=== PATIENT | female | born 1935 | race Caucasian/White ===

== ENCOUNTER 2021-09-25 18:21 | Emergency (ER) | payer OTHER ==
--- NOTE | 2021-09-25 19:19 | RAD REPORT ---
EXAM DESCRIPTION: CT - CTHCSPWOC - 09/25/2021 6:50 pm CLINICAL HISTORY: fall, head injury COMPARISON: No comparisons TECHNIQUE: Axial 5 mm thick images of the head were obtained. Axial 2 mm thick images of the cervic al spine were obtained with sagittal and coronal reconstruction images generated and reviewed. All CT scans are performed using dose optimization technique as appropriate and may include automated exposure control or mA/KV adjustment according to patient size. FINDINGS: No intracranial hemorrhage, mass, edema or acute intracranial finding. No acute cortical b ased infarction. Advanced atrophy and chronic ischemic changes are present with ventricles in proport ion. Arterial tree calcifications are present. No extra-axial fluid collections. Mastoid air cells an d paranasal sinuses are clear. No globe or orbit abnormality seen. Cervical body height and alignment are normal. Disc space narrowing is present C4-C7. Prominent calci fication of the transverse ligament posterior to the dens noted. No fracture or acute bony abnormalit y. No pathologic bone process is present. Calcifications present along the posterior longitudinal ligament at C2-3. Prominent left-sided facet joint degenerative change at this level. Large 10 mm CC x 8 mm AP x 8 mm TR calcification is present posterior aspect of C4-5 disc space. This could be from calcified disc herniation, thickening and calcification of the posterior longitudinal ligament or a combination. This flattens the cord. Central canal is stenotic to 7 mm. Right foraminal stenosis present from facet joint hypertrophy. Right bony foraminal encroachment at C5-6 and mild bilateral foraminal stenosis at C6-7. Central canal detail is inherently limited. No paraspinal mass or hematoma. IMPRESSION: Advanced atrophy and chronic ischemic changes are present with no acute intracranial fin ding. Multilevel cervical spine degenerative change without fracture. Large calcification along the posteri or aspect of the C4-5 disc level causes spinal stenosis down to 7 mm with cord flattening. Negative CT cervical spine examination for acute or significant finding.
--- NOTE | 2021-09-25 19:54 | EDPHYS ---
Physician Documentation [facility] Name: Angela Alston Age: 86 yrs Sex: Female : 1935 Arrival Date: 09/25/2021 Time: 18:23 Bed 2 Private MD: ED Physician Heraclio Brumfield HPI: 09/25 18:25 This 86 yrs old Female presents to ER via Unassigned with complaints of fall, head rn injury. 18:25 The patient or guardian reports injury, pain, swelling. The complaints affect the left rn temporal area and left occipital area. Context of injury: The problem was sustained at a [facility] or assisted living facility, resulted from a fall. Onset: The symptoms/episode began/occurred just prior to arrival. Associated signs and symptoms: Loss of consciousness: This patient did not experience any loss of consciousness. Pertinent positives: headache, Pertinent negatives: the patient has not experienced a loss of conciousness, double vision, incontinence, nausea, seizure, shortness of breath, vomiting. Severity of symptoms: At their worst the symptoms were mild, in the emergency department the symptoms are unchanged. The patient has not experienced similar symptoms in the past. The patient has not recently seen a physician. Historical: - Allergies: 18:30 Macrobid; jl7 18:30 Tetanus Vaccines \T\ Toxoid; jl7 - Home Meds: 18:30 mirabegron 50 mg oral Tb24 1 tab once daily [Active]; losartan 50 mg oral tab 1 tab jl7 once daily [Active]; Namenda 10 mg oral tab 1 tab 2 times per day [Active]; levothyroxine 125 mcg cap 1 cap once daily [Active]; simvastatin 10 mg Oral tab 1 tab once daily [Active]; - PMHx: 18:30 Chronic obstructive lung disease; hyperlipidemia; Dementia; Hypertensive disorder; jl7 Depressive disorder; Hypothyroidism; Transient cerebral ischemia; - Immunization history:: Adult Immunizations unknown. - Social history:: Smoking status: unknown. - Family history:: not pertinent. - Hospitalizations: : No recent hospitalization is reported. ROS: 18:25 Constitutional: Negative for fever, chills, and weight loss, Eyes: Negative for injury, rn pain, redness, and discharge, Neck: Negative for injury, pain, and swelling, Cardiovascular: Negative for chest pain, palpitations, and edema, Respiratory: Negative for shortness of breath, cough, wheezing, and pleuritic chest pain, Abdomen/GI: Negative for abdominal pain, nausea, vomiting, diarrhea, and constipation, Back: Negative for injury and pain, : Negative for injury, bleeding, discharge, and swelling, MS/Extremity: Negative for injury and deformity, Skin: Negative for injury, rash, and discoloration, Neuro: Negative for weakness, numbness, tingling, and seizure. Exam: 18:25 Constitutional: This is a well developed, well nourished patient who is awake, alert, rn and in no acute distress. Head/Face: + small superficial left parietal scalp hematoma, no bleeding or laceration Eyes: Periorbital areas with no swelling, redness, or edema. Neck: No midline cervical tenderness Chest/axilla: Normal chest wall appearance and motion. Nontender with no deformity. No lesions are appreciated. Cardiovascular: Regular rate and rhythm. No pulse deficits. Respiratory: No increased work of breathing, no retractions or nasal flaring. Abdomen/GI: Soft, non-tender Skin: Warm, dry MS/ Extremity: Pulses equal, no cyanosis. Neuro: Awake and alert, GCS 15, oriented to person, place, time, and situation. Moves all 4 extremities without difficulty Vital Signs: 18:26 BP 145 / 64; Pulse 63; Resp 15; Temp 97.8; Pulse Ox 95% ; Pain 0/10; jl7 19:35 BP 155 / 60; Pulse 68; Resp 14; Pulse Ox 93% on R/A; Pain 0/10; tw5 Santhosh Coma Score: 18:25 Eye Response: spontaneous(4). Verbal Response: oriented(5). Motor Response: obeys rn commands(6). Total: 15. 18:25 Eye Response: spontaneous(4). Verbal Response: oriented(5). Motor Response: obeys rn commands(6). Total: 15. MDM: 18:23 Patient medically screened. rn 18:25 Differential diagnosis: Contusion of Hematoma on Intracranial bleed- Concussion rn cerebral contusion. 19:47 Data reviewed: vital signs, nurses notes, EMS record, [facility] records, old medical [facility] records, radiologic studies, CT scan. Data interpreted:. Counseling: I had a detailed discussion with the patient and/or guardian regarding: the historical points, exam findings, and any diagnostic results supporting the discharge/admit diagnosis, the presence of at least one elevated blood pressure reading (>120/80) during this emergency department visit, radiology results, the need for outpatient follow up, to return to the emergency department if symptoms worsen or persist or if there are any questions or concerns that arise at home. Response to treatment: the patient's symptoms have markedly improved after treatment. 09/25 18:30 Order name: CT Head C Spine; Complete Time: 19:36 rn Administered Medications: No medications were administered Disposition Summary: 09/25/21 19:53 Discharge Ordered Location: Home [facility] Problem: new [facility] Symptoms: have improved [facility] Condition: Stable mh Diagnosis - Fall from motorized mobility scooter, sequela 7 - Degenerative Disease Cervical Spine, Chronic [facility] Followup: [facility] - With: Private Physician - When: 1 - 2 days - Reason: Worsening of condition, Recheck today's complaints, Continuance of care, Re-evaluation by your physician Forms: - Medication Reconciliation Form [facility] - Thank You Letter [facility] - Antibiotic Education [facility] - Prescription Opioid Use [facility] Signatures: Dispatcher [employer] EDPk Monique MD MD rn Leal, Jahala, RN RN jl7 Heraclio Brumfield MD MD [facility]
--- NOTE | 2021-09-25 19:54 | ER ---
Nurse's Notes [facility] Name: Angela Alston Age: 86 yrs Sex: Female : 1935 Arrival Date: 09/25/2021 Time: 18:23 Bed 2 Private MD: Diagnosis: Fall from motorized mobility scooter, sequela;Degenerative Disease Cervical Spine, Chronic Presentation: 09/25 18:26 Chief complaint: EMS states: Toned out by [facility] for fall, [facility] faculty jl7 unable to provide information regarding fall, pt reports pain to her head and bilateral shoulders, denies LOC, A\T\Ox2 to self and place, at baseline. Coronavirus screen: At this time, the client does not indicate any symptoms associated with coronavirus-19. Ebola Screen: No symptoms or risks identified at this time. Initial Sepsis Screen: Does the patient meet any 2 criteria? No. Patient's initial sepsis screen is negative. Does the patient have a suspected source of infection? No. Patient's initial sepsis screen is negative. Risk Assessment: Do you want to hurt yourself or someone else? Patient reports no desire to harm self or others. Onset of symptoms was September 25, 2021. Care prior to arrival: None. 18:26 Method Of Arrival: EMS: [facility] 7 18:26 Acuity: KANDACE 4 jl7 Triage Assessment: 18:30 General: Appears in no apparent distress. uncomfortable, Behavior is calm, cooperative, jl7 appropriate for age. Pain: Denies pain. EENT: No deficits noted. Neuro: Level of Consciousness is awake, alert, obeys commands, Oriented to person, place. Cardiovascular: Denies chest pain, Patient's skin is warm and dry. Respiratory: Airway is patent Respiratory effort is even, unlabored, Respiratory pattern is regular, symmetrical, Denies shortness of breath. Derm: Skin is pink, warm \T\ dry. Historical: - Allergies: 18:30 Macrobid; jl7 18:30 Tetanus Vaccines \T\ Toxoid; jl7 - Home Meds: 18:30 mirabegron 50 mg oral Tb24 1 tab once daily [Active]; losartan 50 mg oral tab 1 tab jl7 once daily [Active]; Namenda 10 mg oral tab 1 tab 2 times per day [Active]; levothyroxine 125 mcg cap 1 cap once daily [Active]; simvastatin 10 mg Oral tab 1 tab once daily [Active]; - PMHx: 18:30 Chronic obstructive lung disease; hyperlipidemia; Dementia; Hypertensive disorder; jl7 Depressive disorder; Hypothyroidism; Transient cerebral ischemia; - Immunization history:: Adult Immunizations unknown. - Social history:: Smoking status: unknown. - Family history:: not pertinent. - Hospitalizations: : No recent hospitalization is reported. Screenin:35 Abuse screen: Denies threats or abuse. Denies injuries from another. Nutritional jl7 screening: No deficits noted. Tuberculosis screening: No symptoms or risk factors identified. Fall Risk Fall in past 12 months (25 points). Secondary diagnosis (15 points) dementia, Mental Status- Overestimates/Forgets Limitations (15 pts.). Total Darby Fall Scale indicates High Risk Score (45 or more points). Fall prevention measures have been instituted. Side Rails Up X 2 Placed Close to Nursing Station Frequent Obs/Assessments Occuring As available patient and family educated on Fall Prevention Program and Strategies. Assessment: 18:35 General: see triage. jl7 19:35 Neuro: Level of Consciousness is awake, alert, obeys commands, Oriented to person, tw5 place. Respiratory: Airway is patent Trachea midline Respiratory effort is even, unlabored. 20:15 Reassessment: Spoke with González at [facility] for patient discharge, he will attempt to [facility] find transportation and call back. 20:19 Reassessment: Spoke with Laureen, patient's daughter, at [phone], she will come to [facility] transport patient back to [facility]. 20:21 Reassessment: González at [facility] updated on plan of care, patient's daughter will lp transport patient back to [facility] by personal vehicle. Vital Signs: 18:26 BP 145 / 64; Pulse 63; Resp 15; Temp 97.8; Pulse Ox 95% ; Pain 0/10; jl7 19:35 BP 155 / 60; Pulse 68; Resp 14; Pulse Ox 93% on R/A; Pain 0/10; tw5 Santhosh Coma Score: 18:25 Eye Response: spontaneous(4). Verbal Response: oriented(5). Motor Response: obeys rn commands(6). Total: 15. 18:25 Eye Response: spontaneous(4). Verbal Response: oriented(5). Motor Response: obeys rn commands(6). Total: 15. ED Course: 18:23 Patient arrived in ED. ss 18:23 Pk Ferreira MD is Attending Physician. rn 18:26 Jonnathan Martinez, KYE is Primary Nurse. jl7 18:30 Triage completed. jl7 18:30 Arm band placed on right wrist. jl7 18:35 Patient has correct armband on for positive identification. Bed in low position. Call jl7 light in reach. Side rails up X2. Pulse ox on. NIBP on. Warm blanket given. 18:50 CT Head C Spine In Process Unspecified. EDMS 19:02 Attending Physician role handed off by Pk Ferreira MD [facility] 19:02 Heraclio Brumfield MD is Attending Physician. [facility] 19:45 Primary Nurse role handed off by Jonnathan Martinez RN cs9 20:30 Sirisha Downey is Primary Nurse. tw5 20:31 No provider procedures requiring assistance completed. Patient did not have IV access tw5 during this emergency room visit. Administered Medications: No medications were administered Outcome: 19:53 Discharge ordered by . 7 20:31 Discharged to home via wheelchair. tw5 20:31 Condition: good 20:31 Discharge instructions given to patient, family, Instructed on discharge instructions, follow up and referral plans. Demonstrated understanding of instructions. 20:31 Patient left the ED. tw5 Signatures: Dispatcher [employer] EDUT Pk Ferreira MD MD rn Smirch, Shelby, RN RN Katie Ugalde, RN RN lp1 Jonnathan Martinez, KYE FISHMAN jl7 Heraclio Brumfield MD MD Sirisha Quigley tw5 Nataly Sesay cs9
[2021-09-25 20:41] VITALS: TEMP 97.8
[2021-09-25 20:43] VITALS: BP 155/60; O2SAT 93
== END 2021-09-25 20:31 | disposition home or self-care (01) ==
LOC: ER 18:21
DX: S00.03XA Contusion of scalp, initial encounter (principal); M50.30 Other cervical disc degeneration, unspecified cervical region; W05.2XXA Fall from non-moving motorized mobility scooter, initial encounter; Y92.129 Unspecified place in nursing home as the place of occurrence of the external cause; I10 Essential (primary) hypertension; F03.90 Unspecified dementia, unspecified severity, without behavioral disturbance, psychotic disturbance, mood disturbance, and anxiety; E03.9 Hypothyroidism, unspecified; Z86.73 Personal history of transient ischemic attack (TIA), and cerebral infarction without residual deficits; Z88.1 Allergy status to other antibiotic agents; Z88.7 Allergy status to serum and vaccine
CPT/HCPCS: 70450; 72125; 99283

== ENCOUNTER 2021-10-29 16:28 | Inpatient (IN) | payer OTHER ==
--- OUTSIDE RECORDS SUMMARY | 2021-10-29 16:30 | XMS REPORT | Continuity of Care Document ---
:1935 Author Organization [facility] t Address [address] [place] [address] Care Team Providers Name Role Phone SABRINA MARQUEZ Primary Care Physician Unavailable DELMA BOOKER Attending Clinician Unavailable Jacek Attending Clinician Unavailable Charly PRATT Attending Clinician Unavailable IDA Attending Clinician Unavailable Jacek Admitting Clinician Unavailable IDA Admitting Clinician Unavailable Payers Payer Name Policy Type Policy Number Effective Date Expiration Date S ource MEDICARE PART A \T\ [id number] 1999 B 00:00:00 [facility] [id number] 2013 GENERAL 00:00:00 MEDICARE B-[place]: [id number] 1999 [employer] 00:00:00 [facility] [id number] 2001 [facility] 00:00:00 (INDEMNITY) Problems This patient has no known problems. Allergies, Adverse Reactions, Alerts Allergy Allergy Status Severity Reaction(s) Onset Inactive Treating Comm ents Source Name Type Date Date Clinician TETANUS DRUG Active Hives 2018- [facility] TOXOID 6-12 ity of 00:00: [address] [place] nitrofur DA [facility] antoin 4-22 Clear 00:00: [address] tetanus DA [place] [facility] toxoid, 4-22 Clear adsorbed 00:00: [address] Medications This patient has no known medications. Procedures This patient has no known procedures. Encounters Start End Encounter Admission Attending Care Care Encounter Source Date/Time Date/Time Type Type Clinicians Facility Department ID 2021-08-[address] [facility] [id number] [facility] 10:03:22 [facility] 2021-08-[address] [facility] [id number] [facility] 19:50:02 [facility] 2021-04-26 2021-04-26 Outpatient [facility] [id number] [facility] 09:30:00 09:30:00 [id number] [facility] 2021-04-06 2021-04-06 Outpatient R [facility] [id number] [facility] 10:00:00 10:00:00 [id number] [facility] 2021-04-06 2021-04-06 Outpatient [facility] [id number] [facility] 10:00:00 10:00:00 [facility] 2021-03-04 2021-03-04 Outpatient GC_[facility]AWPR[facility] PRIV PRIV [id number] [facility] 12:43:00 12:43:00 _Miller-M [id number] [facility] 2021-01-06 2021-01-06 [address] [facility] [id number] [facility] 13:00:00 13:00:00 MALACHI [id number] [facility] 2021-01-06 2021-01-06 [facility] [id number] [facility] 13:00:00 13:00:00 MALACHI [facility] 2020-12-16 2020-12-[address] [facility] [id number] Univers 15:20:00 15:20:00 [id number] [facility] 2020-12-16 2020-12-16 [facility] [id number] [facility] 15:20:00 15:20:00 MALACHI [facility] 2020-10-26 2020-10-26 Outpatient A[facility] [id number] [facility] 09:30:00 09:30:00 [id number] [facility] 2020-10-06 2020-10-06 Outpatient R [facility] [id number] [facility] 10:00:00 10:00:00 [id number] [facility] 2020-10-06 2020-10-06 Outpatient R [facility] [id number] [facility] 10:00:00 10:00:00 [facility] 2020-04-19 2020-04-19 Outpatient R [facility] [id number] [facility] 10:00:00 10:00:00 [facility] 2020-04-11 2020-04-12 Outpatient X IDA [facility] [id number] [facility] 18:25:17 17:04:00 CAPRI [facility] Results This patient has no known results.
[2021-10-29 17:27] LABS: Absolute Lymphocytes (CBC) 1.6 K/uL (0.7-4.9); Hematocrit 36.8 % (36.0-45.0); Lymphocytes % 12.4 % (15.3-44.8); MPV 7.8 fL (7.6-11.3)
[2021-10-29 17:39] LABS: Protime INR 1.4
[2021-10-29 17:45] LABS: Urine Blood 2+ (Negative); Urine Glucose Negative (Negative); Urine Protein 2+ (Negative); Urine Specific Gravity 1.025 (1.005-1.030); Urine pH 5.5 (5.0-7.0)
[2021-10-29 17:47] LABS: Albumin 2.3 g/dL (3.4-5.0); Bilirubin Direct 0.2 mg/dL (0-0.2); Bilirubin Total 0.4 mg/dL (0.2-1.0); CKMB Creatine Kinase MB 2.4 ng/mL (1.0-3.6); Potassium 3.7 mmol/L (3.5-5.1); Protein, Total 7.3 g/dL (6.4-8.2); Troponin (Emerg Dept Use Only) 0.15 ng/mL (0.0-0.045)
--- NOTE | 2021-10-29 18:42 | ER ---
Nurse's Notes [facility] Name: Angela Alston Age: 86 yrs Sex: Female : 1935 Arrival Date: 10/29/2021 Time: 16:38 Bed 5 Private MD: Diagnosis: Elevated white blood cell count;Lobar pneumonia, unspecified organism Presentation: 10/29 16:38 Chief complaint: EMS states: pt from [facility]. call was for possible tw2 sepsis. but when we arrived the staff was saying AMS and she is not acting right. normally she has clear speech and interacts well with the staff but not today. daughter states this has been going on for a week. lab work showed elevated WBC's and cxray from [facility] showed pneumonia. she was at 88% on RA when we arrived. BP 75/36 HR 70, BGL 127, temp 97.7. Coronavirus screen: At this time, the client does not indicate any symptoms associated with coronavirus-19. Coronavirus screen: The client reports previous COVID testing was negative. Date of collection: October 29, 2021 per EMS performed prior to arrival. Ebola Screen: Patient denies travel to an Ebola-affected area in the 21 days before illness onset. Initial Sepsis Screen: Does the patient meet any 2 criteria? No. Patient's initial sepsis screen is negative. Does the patient have a suspected source of infection? No. Patient's initial sepsis screen is negative. Risk Assessment: Do you want to hurt yourself or someone else? Patient reports no desire to harm self or others. Onset of symptoms was October 29, 2021. 16:38 Method Of Arrival: EMS: [facility] tw2 16:38 Acuity: KANDACE 2 tw2 16:38 Care prior to arrival: Medication(s) given: Normal saline infusion, 500 mL, IV tw2 initiated. 20 GA, in the right wrist. Triage Assessment: 16:38 General: Appears in no apparent distress. obese, Behavior is calm, cooperative, tw2 appropriate for age. Pain: Denies pain. Neuro: Level of Consciousness is awake, alert, obeys commands, Oriented to person, place. Cardiovascular: Patient's skin is warm and dry. Respiratory: Airway is patent Respiratory effort is even, unlabored, Respiratory pattern is regular, symmetrical. GI: No signs and/or symptoms were reported involving the gastrointestinal system. Abdomen is round non-distended, obese. Musculoskeletal: Range of motion: intact in all extremities. Historical: - Allergies: 16:43 Macrobid; tw2 16:43 Tetanus Vaccines \T\ Toxoid; tw2 - Home Meds: 16:43 mirabegron 50 mg Oral Tb24 1 tab once daily [Active]; losartan 50 mg Oral tab 1 tab tw2 once daily [Active]; Namenda 10 mg Oral tab 1 tab 2 times per day [Active]; omeprazole 20 mg Oral cpDR 1 cap once daily [Active]; levothyroxine 125 mcg cap 1 cap once daily [Active]; simvastatin 10 mg Oral tab 1 tab once daily [Active]; tramadol 50 mg Oral tab 1 tab every 24 hours as needed [Active]; aspirin 81 mg oral TbEC [Active]; - PMHx: 16:43 Chronic obstructive lung disease; Dementia; depressive disorder; Hyperlipidemia; tw2 Hypertensive disorder; Hypothyroidism; Transient cerebral ischemia; - Immunization history:: Adult Immunizations. - Social history:: Smoking status: Patient/guardian denies using alcohol, street drugs, The patient lives with family. - Family history:: not pertinent. Screenin:47 Abuse screen: Denies threats or abuse. Nutritional screening: No deficits noted. tw2 Tuberculosis screening: No symptoms or risk factors identified. Fall Risk Secondary diagnosis (15 points) dementia, impaired mobility. Assessment: 16:45 General: SEE TRIAGE NOTE. bp 18:00 Reassessment: No changes from previously documented assessment. Patient and/or family bp updated on plan of care and expected duration. Pain level reassessed. ALL CURRENT ORDERS COMPLETED. 19:10 General: Appears ill, Behavior is quiet. Pain: Denies pain. Neuro: Level of mk Consciousness is obeys commands, confused, Oriented to person, place, drowsy when answering questions. Log Driver are equal bilaterally Moves all extremities. Gait is steady, family states she is 'pretty much at baseline' . Cardiovascular: Heart tones S1 S2 Capillary refill < 3 seconds JVD is absent Patient's skin is warm and dry. Pulses are 2+ in right radial artery, right dorsalis pedis artery, left radial artery and left dorsalis pedis artery. Respiratory: Airway is patent Trachea midline Respiratory effort is even, unlabored, Respiratory pattern is regular, symmetrical, Breath sounds are diminished. GI: Abdomen is distended, obese, Bowel sounds present X 4 quads. Abd is soft and non tender X 4 quads. : No signs and/or symptoms were reported regarding the genitourinary system. Derm: Skin is intact, is fragile, Skin is dry, Skin temperature is warm. Musculoskeletal: Capillary refill < 3 seconds, fingers. toes. Range of motion: intact in all extremities. 20:10 Reassessment: Patient appears in no apparent distress at this time. No changes from previously documented assessment. Patient and/or family updated on plan of care and expected duration. Pain level reassessed. Patient states feeling better. 21:16 Reassessment: Patient appears in no apparent distress at this time. No changes from previously documented assessment. Patient states feeling better. Vital Signs: 16:38 BP 90 / 51; Pulse 66; Resp 15; Temp 97.7(TE); Pulse Ox 98% on 1 lpm NC; tw2 18:00 BP 90 / 64; Pulse 67; Resp 17; Pulse Ox 97% ; bp 19:00 BP 92 / 68; Pulse 65; Resp 18; Pulse Ox 98% on 3 lpm NC; mk 20:00 BP 90 / 55; Pulse 71; Resp 22; Pulse Ox 98% on R/A; mk 21:07 BP 93 / 59; Pulse 66; Resp 18; Pulse Ox 96% on NC; mk [place] Coma Score: 19:00 Eye Response: spontaneous(4). Verbal Response: confused(4). Motor Response: obeys mk commands(6). Total: 14. 20:00 Eye Response: spontaneous(4). Verbal Response: confused(4). Motor Response: obeys mk commands(6). Total: 14. 21:07 Eye Response: spontaneous(4). Verbal Response: confused(4). Motor Response: obeys mk commands(6). Total: 14. ED Course: 16:38 Patient arrived in ED. tw2 16:38 Bed in low position. Call light in reach. Side rails up X2. Adult w/ patient. Cardiac tw2 monitor on. Pulse ox on. NIBP on. Warm blanket given. 16:40 Isreal Ledbetter MD is Attending Physician. ma2 16:42 Triage completed. tw2 16:43 Arm band placed on. tw2 16:46 Maintain EMS IV. Dressing intact. Good blood return noted. Site clean \T\ dry. Gauge \T\ tw 2 site: 20 g RIGHT wrist. 17:05 Shane Reeves, RN is Primary Nurse. bp 17:25 EKG done, by ED staff, reviewed by Isreal Ledbetter MD. mb7 17:28 Amylase, Serum Sent. bp 17:28 Basic Metabolic Panel Sent. bp 17:50 Urine collected: straight cath specimen, clear. mb7 18:41 Nicholas Alarcon DO is Referral Physician. ma2 18:44 Kun Ferreira MD is Hospitalizing Provider. ma2 19:17 Primary Nurse role handed off by Shane Reeves, KYE cs9 19:49 Christina Morillo RN is Primary Nurse. mk 20:43 No provider procedures requiring assistance completed. Patient admitted, IV remains in mk place. Administered Medications: 17:20 Drug: NS 0.9% 1000 ml Route: IV; Rate: 1 bolus; Site: right forearm; bp 18:50 Follow up: Response: No adverse reaction; IV Status: Completed infusion; IV Intake: tw2 1000ml 17:20 Drug: Rocephin (cefTRIAXone) 1 grams Route: IV; Rate: calculated rate; Site: right bp forearm; 17:20 Drug: AZITHromycin 500 mg Route: IVPB; Infused Over: 1 hrs; Site: right forearm; bp 18:49 Follow up: Response: No adverse reaction; IV Status: Completed infusion; IV Intake: tw2 250ml 18:59 Drug: NS 0.9% 1000 ml Route: IV; Rate: 1000 ml; Site: right forearm; tw2 20:21 Follow up: Response: No adverse reaction; IV Status: Completed infusion; IV Intake: mk 1000ml 20:21 Drug: NS 0.9% 1000 ml Route: IV; Rate: 75 ml/hr; Site: right antecubital; 10/30 06:30 Follow up: IV Status: Infusion continued upon admission mk Intake: 10/29 18:49 IV: 250ml; Total: 250ml. tw2 18:50 IV: 1000ml; Total: 1250ml. tw2 20:21 IV: 1000ml; Total: 2250ml. Outcome: 18:42 Discharge ordered by . ma2 18:44 Decision to Hospitalize by Provider. ma2 20:43 Admitted to Tele 20:43 Condition: improved 20:43 Instructed on the need for admit. 21:33 Patient left the ED. Signatures: Sabine Myers RN RN 2 Shane Reeves RN RN Isreal Burnett MD MD co2 Nataly Sesay [facility]7 Christina Morillo RN RN mk Corrections: (The following items were deleted from the chart) 10/30 06:30 10/29 19:10 GI: Abdomen is obese, rachael
--- NOTE | 2021-10-29 18:42 | EDPHYS ---
Physician Documentation [facility] Name: Angela Alston Age: 86 yrs Sex: Female : 1935 Arrival Date: 10/29/2021 Time: 16:38 Bed 5 Private MD: ED Physician Isreal Ledbetter HPI: 10/29 17:20 This 86 yrs old Female presents to ER via EMS with complaints of Cough congestion. ma2 17:20 Onset: The symptoms/episode began/occurred gradually, 2 day(s) ago. Associated signs ma2 and symptoms: Pertinent negatives: blurred vision, confusion, diarrhea, headache. Current symptoms: In the emergency department the patient's symptoms are unchanged from the initial presentation. The patient has experienced similar episodes in the past. Sent from [facility] for cough congestion, oxygen saturation goes down to 88 on room air, she is on 4 L oxygen via nasal cannula saturation is 95, with a chest x-ray that shows pneumonia,. Also blood work that shows elevated WBCs.. Historical: - Allergies: 16:43 Macrobid; tw2 16:43 Tetanus Vaccines \\T\\ Toxoid; tw2 - Home Meds: 16:43 mirabegron 50 mg Oral Tb24 1 tab once daily [Active]; losartan 50 mg Oral tab 1 tab tw2 once daily [Active]; Namenda 10 mg Oral tab 1 tab 2 times per day [Active]; omeprazole 20 mg Oral cpDR 1 cap once daily [Active]; levothyroxine 125 mcg cap 1 cap once daily [Active]; simvastatin 10 mg Oral tab 1 tab once daily [Active]; tramadol 50 mg Oral tab 1 tab every 24 hours as needed [Active]; aspirin 81 mg oral TbEC [Active]; - PMHx: 16:43 Chronic obstructive lung disease; Dementia; depressive disorder; Hyperlipidemia; tw2 Hypertensive disorder; Hypothyroidism; Transient cerebral ischemia; - Immunization history:: Adult Immunizations. - Social history:: Smoking status: Patient/guardian denies using alcohol, street drugs, The patient lives with family. - Family history:: not pertinent. ROS: 17:20 Constitutional: Negative for fever, chills, and weight loss. ma2 17:20 All other systems are negative. Exam: 17:20 Constitutional: This is a well developed, well nourished patient who is awake, alert, ma2 and in no acute distress. Head/Face: Normocephalic, atraumatic. Eyes: Pupils equal round and reactive to light, extra-ocular motions intact. Lids and lashes normal. Conjunctiva and sclera are non-icteric and not injected. Cornea within normal limits. Periorbital areas with no swelling, redness, or edema. ENT: Nares patent. No nasal discharge, no septal abnormalities noted. Tympanic membranes are normal and external auditory canals are clear. Oropharynx with no redness, swelling, or masses, exudates, or evidence of obstruction, uvula midline. Mucous membranes moist. Neck: Trachea midline, no thyromegaly or masses palpated, and no cervical lymphadenopathy. Supple, full range of motion without nuchal rigidity, or vertebral point tenderness. No Meningismus. Chest/axilla: Normal chest wall appearance and motion. Nontender with no deformity. No lesions are appreciated. Cardiovascular: Regular rate and rhythm with a normal S1 and S2. No gallops, murmurs, or rubs. Normal PMI, no JVD. No pulse deficits. Respiratory: Hypoxemia on room ai. at this time, patient is on oxygen. Lungs have equal breath sounds bilaterally, Rales to bilateral lower lungs, otherwise no. wheezes noted. No increased work of breathing, no retractions or nasal flaring. Abdomen/GI: Soft, non-tender, with normal bowel sounds. No distension or tympany. No guarding or rebound. No evidence of tenderness throughout. Back: No spinal tenderness. No costovertebral tenderness. Full range of motion. Skin: Warm, dry with normal turgor. Normal color with no rashes, no lesions, and no evidence of cellulitis. MS/ Extremity: Pulses equal, no cyanosis. Neurovascular intact. Full, normal range of motion. Neuro: Awake and alert, GCS 15, oriented to person, place, time, and situation. Cranial nerves II-XII grossly intact. Motor strength 5/5 in all extremities. Sensory grossly intact. Cerebellar exam normal. Normal gait. Vital Signs: 16:38 BP 90 / 51; Pulse 66; Resp 15; Temp 97.7(TE); Pulse Ox 98% on 1 lpm NC; tw2 18:00 BP 90 / 64; Pulse 67; Resp 17; Pulse Ox 97% ; bp 19:00 BP 92 / 68; Pulse 65; Resp 18; Pulse Ox 98% on 3 lpm NC; mk 20:00 BP 90 / 55; Pulse 71; Resp 22; Pulse Ox 98% on R/A; mk 21:07 BP 93 / 59; Pulse 66; Resp 18; Pulse Ox 96% on NC; mk [place] Coma Score: 19:00 Eye Response: spontaneous(4). Verbal Response: confused(4). Motor Response: obeys mk commands(6). Total: 14. 20:00 Eye Response: spontaneous(4). Verbal Response: confused(4). Motor Response: obeys mk commands(6). Total: 14. 21:07 Eye Response: spontaneous(4). Verbal Response: confused(4). Motor Response: obeys mk commands(6). Total: 14. MDM: 16:47 Patient medically screened. ma2 18:39 Differential Diagnosis: pneumonia, UTI, volume depletion, Patient has mild sepsis, ma2 blood pressure is within normal limits at this time. [facility] x-[facility] done at the [facility] today, and shows shows pneumonia. Report is printed and available. Lab work shows sepsis, troponin is mildly elevated, however patient does not have any chest pain or angina equivalent. EKG with no ST elevation MS. Troponin elevation is likely part of the sepsis. We will continue to follow-up trend troponin. Discussed with the hospitalist. Mr. Coello. Data reviewed: vital signs, nurses notes, EMS record, [facility] records, diagnostic data from outside facility, lab test result(s), radiologic studies. Counseling: I had a detailed discussion with the patient and/or guardian regarding: the historical points, exam findings, and any diagnostic results supporting the discharge/admit diagnosis, the presence of at least one elevated blood pressure reading (>120/80) during this emergency department visit, lab results, radiology results, the need for further work-up and treatment in the hospital. Response to treatment: the patient's symptoms have markedly improved after treatment. 18:42 Patient medically screened. ma2 10/29 16:40 Order name: Amylase, Serum ma2 10/29 16:40 Order name: Basic Metabolic Panel ma2 10/29 16:40 Order name: Blood Culture Adult (2) ma2 10/29 16:40 Order name: CBC with Diff; Complete Time: 17:32 ma2 10/29 16:40 Order name: CPK; Complete Time: 18:31 10/29 16:40 Order name: Ckmb; Complete Time: 18:31 10/29 16:40 Order name: LFT's; Complete Time: 18:31 10/29 16:40 Order name: Lactate; Complete Time: 18:31 10/29 16:40 Order name: Lipase; Complete Time: 18:31 10/29 16:40 Order name: Procalcitonin; Complete Time: 18:31 10/29 16:40 Order name: Protime (+inr); Complete Time: 18:31 10/29 16:40 Order name: Ptt, Activated; Complete Time: 18:31 10/29 16:40 Order name: Troponin (emerg Dept Use Only); Complete Time: 18:30 10/29 16:40 Order name: Urine Microscopic Only [facility] 10/29 16:40 Order name: Accucheck; Complete Time: 17:05 wi10/29 16:40 Order name: Cardiac monitoring; Complete Time: 17:05 10/29 16:40 Order name: EKG - Nurse/Tech; Complete Time: 17:05 10/29 16:40 Order name: IV Saline Lock - Large Bore; Complete Time: 17:05 10/29 16:40 Order name: Labs collected and sent; Complete Time: 17:05 10/29 16:40 Order name: O2 Per Protocol; Complete Time: 17:05 wi10/29 16:40 Order name: SARS-COV-2 RT PCR (Document "Date of Onset" if Symptomatic); Complete Time: ma2 20:10/29 16:41 Order name: Amylase; Complete Time: 18:31 EDMS 10/29 16:41 Order name: Basic Metabolic Panel; Complete Time: 18:31 EDMS 10/29 17:45 Order name: Urine Dipstick-Ancillary; Complete Time: 18:31 EDME 10/29 16:40 Order name: O2 Sat Monitoring; Complete Time: 17:05 wi2 10/29 16:40 Order name: Urine Dipstick-Ancillary (obtain specimen); Complete Time: 17:51 ma2 Administered Medications: 17:20 Drug: NS 0.9% 1000 ml Route: IV; Rate: 1 bolus; Site: right forearm; bp 18:50 Follow up: Response: No adverse reaction; IV Status: Completed infusion; IV Intake: tw2 1000ml 17:20 Drug: Rocephin (cefTRIAXone) 1 grams Route: IV; Rate: calculated rate; Site: right bp forearm; 17:20 Drug: AZITHromycin 500 mg Route: IVPB; Infused Over: 1 hrs; Site: right forearm; bp 18:49 Follow up: Response: No adverse reaction; IV Status: Completed infusion; IV Intake: tw2 250ml 18:59 Drug: NS 0.9% 1000 ml Route: IV; Rate: 1000 ml; Site: right forearm; tw2 20:21 Follow up: Response: No adverse reaction; IV Status: Completed infusion; IV Intake: mk 1000ml 20:21 Drug: NS 0.9% 1000 ml Route: IV; Rate: 75 ml/hr; Site: right antecubital; mk 10/30 06:30 Follow up: IV Status: Infusion continued upon admission Disposition Summary: 10/29/21 18:44 Hospitalization Ordered Hospitalization Status: Inpatient Admission ma2 Provider: Kun Ferreira Location: Telemetry/MedSurg (Inpatient)(10/29/21 18:44) ma2 Condition: Stable(10/29/21 18:44) ma2 Problem: new ma2 Symptoms: are unchanged ma2 Bed/Room Type: Standard [facility] Room Assignment: [facility](10/29/21 20:19) Diagnosis - Elevated white blood cell count ma2 - Lobar pneumonia, unspecified organism(10/29/21 18:44) [facility] Forms: - Medication Reconciliation Form ma2 - SBAR form wi2 Signatures: Dispatcher [employer] EDMS Tico Coello, MARBLEIZING MACHINE TENDER-C MARBLEIZING MACHINE TENDER-Cla1 rBeanna Cummings RN RN Sabine Myers RN RN tw2 Shane Reeves RN RN bp Isreal Ledbetter MD MD ma2 Christina Morillo RN RN mk Corrections: (The following items were deleted from the chart) 10/29 16:50 16:41 Chest Single View+RAD.RAD.BRZ ordered. EDMS EDMS 18:43 18:42 Home ma2 ma2 18:43 18:42 Stable ma2 ma2 18:43 18:42 Lobar pneumonia, unspecified organism ma2 ma2 :18 18:44 ma2 cg 20:18 20:18 209 cg cg :19 20:18 cg cg
[2021-10-29] MEDS ORDERED: NA CHLORIDE 0.9% 1,000 ML ONE (18:58)
--- NOTE | 2021-10-29 20:54 | P.HP ---
Certification for Inpatient Patient admitted to: Inpatient With expected LOS: >2 Midnights Patient will require the following post-hospital care: None Practitioner: I am a practitioner with admitting privileges, knowledge of patient current condition, hospital course, and medical plan of care. Services: Services provided to patient in accordance with Admission requirements found in Title 42 Section 412.3 of the Code of Federal Regulations Patient History Date of Service: 10/29/21 Primary Care Provider: assisted doctor Reason for admission: Severe sepsis, pneumonia History of Present Illness: 86-year-old female with history of dementia, COPD, CAD, hypertension, hypothyroidism, hyperlipidemia from [facility] presents to the emergency department for suspected sepsis. Daughter at bedside reports patient has not been acting herself for the past week or so found to be hypotensive with blood pressure of 79/50 by staff, chest x-ray done at facility demonstrates bilateral lower lobe pneumonia. Labs in the emergency department revealed white blood cell count 12.9 hemoglobin 11.4 hematocrit 36.8 creatinine 1.85 GFR 26 BUN 36 troponin 0.15 procalcitonin 3.3 urinalysis with 3+ leukoesterase microscopic analysis pending patient blood pressure improved after 2 L NS bolus currently 96 systolic. ED provider wishes to admit for severe sepsis, pneumonia. Allergies Unable to Assess Allergy (Unverified 10/29/21 20:33) - Past Medical/Surgical History -: Dementia -: Hypothyroidism -: Hypertension -: CAD -: COPD -: -: Bilateral knee replacements -: Back surgery Psychosocial/ Personal History: assisted resident - Family History Mother -: Diabetes Brother -: Diabetes - Social History Smoking Status: Former smoker Alcohol use: No CD- Drugs: No Caffeine use: Yes Place of Residence: Home Review of Systems 10-point ROS is otherwise unremarkable General: Chills Respiratory: Cough, Shortness of Breath Physical Examination - Physical Exam General: Alert, In no apparent distress, Oriented x2 HEENT: Atraumatic, PERRLA, Mucous membr. moist/pink, EOMI, Sclerae nonicteric Neck: Supple, 2+ carotid pulse no bruit, No LAD, Without JVD or thyroid abnormality Respiratory: Diminished, Expiratory wheezes Cardiovascular: No edema, Regular rate/rhythm, Normal S1 S2 Capillary refill: <2 Seconds Gastrointestinal: Normal bowel sounds, No tenderness Musculoskeletal: No tenderness Integumentary: No rashes Neurological: Normal speech, Normal strength at 5/5 x4 extr, Normal tone, Normal affect Lymphatics: No axilla or inguinal lymphadenopathy - Studies Laboratory Data (last 24 hrs) 10/29/21 17:05: PT 16.1 H, INR 1.40, APTT 26.8 10/29/21 17:05: WBC 12.90 H D, Hgb 11.4 L, Hct 36.8, Plt Count 216 10/29/21 17:05: Sodium 138, Potassium 3.7, BUN 36 H, Creatinine 1.85 H, Glucose 108 H, Total Bilirubin 0.4, AST 45 H, ALT 28, Alkaline Phosphatase 110, Amylase 21 L, Lipase 44 L Assessment and Plan - Plan Assessment: Severe sepsis secondary to bilateral lower lobe pneumonia COPD Elevated troponin Acute kidney injury Hypertension currently with hypotension Hyperlipidemia Hypothyroidism Plan: Severe sepsis secondary to bilateral lower lobe pneumonia: Continue broad- spectrum antibiotics with Rocephin/Zithromax, incentive spirometry. Patient did receive 2 L NS bolus which equates to 30 cc/kg fluid bolus, will continue with 100 cc/h NS throughout the evening. Sputum culture ordered. Anticipate clinical improvement over the course of the next 48 to 72 hours. Blood pressure improved after fluids currently 98/52. Patient saturating well 95% on 1 to 2 L per nasal cannula at this time no respiratory distress noted COPD: We will provide with as needed nebulizer treatments while in hospital. Elevated troponin: Likely demand ischemia related to severe sepsis, will trend and monitor oncology. Consult cardiology for significant elevations in troponin level or chest pain. Acute kidney injury: Continue IV fluids likely related to above monitor renal function daily, consult nephrology as necessary if renal function does not improve significantly. Hypertension currently with hypotension: Hold hypertensive agents Hyperlipidemia: Obtain and continue home medications Hypothyroidism: Obtain and continue medications DVT PPX: Heparin Code status: Yoly Garduno [phone] Discharge Plan: Home Plan to discharge in: 72 Hours - Advance Directives Does patient have a Living Will: No Does patient have a Durable POA for Healthcare: No - Code Status/Comfort Care Code Status Assessed: Yes (DNR) Critical Care: No Time Spent Managing Pts Care (In Minutes): 55
[2021-10-29] MEDS ORDERED: ONDANSETRON 4 MG/2 ML VIAL IV PRN (21:24)
[2021-10-29 22:11] VITALS: BMI 35.6
[2021-10-29] MEDS: NA CHLORIDE 0.9% 1,000 ML IV SCH (23:22)
[2021-10-29] MEDS: HEPARIN 5000 UNIT/ML 1 ML VIAL SQ SCH (23:24)
[2021-10-29] MEDS: ACETAMINOPHEN 500 MG TAB PO PRN (23:27)
--- NOTE | 2021-10-30 04:37 | P.INFCA ---
Sepsis Focused Assessment - Focused Assessment Complete? Sepsis Focused Assessment Completed?: Yes - Sepsis Screen Result Severe Sepsis: Positive Septic Shock: Negative - Evaluation Current stage of sepsis: Severe sepsis - Vital Signs Reviewed: Yes Temperature: 97.6 F Heart rate: 64 Blood Pressure: 93/51 Respiratory Rate: 18 O2 Sat by Pulse Oximetry: 93 - Examination Date exam was performed: 10/29/21 Time exam was performed: 23:00 Heart: Regular rate/rhythm Lungs: Diminished air movement Peripheral pulses: 2+ Slightly diminished Peripheral pulse location: Radial Capillary refill: <2 Seconds Skin examination: Normal turgor
--- NOTE | 2021-10-30 05:58 | P.PN ---
Date of Service: 10/30/21 Subjective: Reports feeling slightly better this morning, still very tired, generalized weakness Feels she is breathing a little bit better, continues with cough ROS: 10 point ROS as noted above, otherwise negative Physical exam GEN: Alert, orientedx2 HEENT: Normal conjunctiva, sclera anicteric CV: Regular rate and rhythm, no edema Pulm: Nonlabored respirations on 4L, b/l crackles at bases ABD: Soft, nontender, nondistended Neuro: Normal speech, normal affect Problem List Severe sepsis secondary to bilateral lower lobe pneumonia COPD Elevated troponin Acute kidney injury Hypertension currently with hypotension Hyperlipidemia Hypothyroidism Severe sepsis secondary to bilateral lower lobe pneumonia: Continue IV antibiotics, Rocephin and azithromycin Received 30 cc/kg fluid bolus in ED. Continue on 100 cc/hr normal saline Follow-up cultures Blood pressure low, but improved compared to admission Oxygenation stable so far Pulmonology consulted COPD: Nebulizer treatments as needed We will discuss further with pulmonology, may benefit from steroids Reportedly had more wheezing yesterday Elevated troponin: Likely demand ischemia related to severe sepsis, will trend. Consult cardiology for significant elevations in troponin level or chest pain. Acute kidney injury: Prerenal, secondary to sepsis/dehydration. Resolved with IV fluid repletion Hypertension currently with hypotension: Hold hypertensive agents Hypothyroidism HLD Comfortable continue home medications Code status: Yoly Garduno [phone] Dispo: [facility] days Time Spent Managing Pts Care (In Minutes): 35
[2021-10-30 06:17] LABS: Absolute Lymphocytes (CBC) 1.5 K/uL (0.7-4.9); Hematocrit 33.6 % (36.0-45.0); Lymphocytes % 18.1 % (15.3-44.8); RBC Red Blood Cell Count 4.26 M/uL (3.86-4.86)
[2021-10-30 06:52] LABS: Albumin 1.8 g/dL (3.4-5.0); Bilirubin Total 0.2 mg/dL (0.2-1.0); Potassium 3.7 mmol/L (3.5-5.1); Protein, Total 6.1 g/dL (6.4-8.2); Thyroid Stimulating Hormone 1.57 uIU/mL (0.360-3.740); Troponin I 0.07 ng/mL (0.0-0.045)
--- NOTE | 2021-10-30 08:06 | RAD REPORT ---
EXAM DESCRIPTION: [place] Single View10/30/2021 6:30 am CLINICAL HISTORY: Shortness of breath COMPARISON: none FINDINGS: Mild bilateral pulmonary opacities. The heart is normal size. Postsurgical changes involv e the chest. Bony density along the right humeral head may represent a large osteophyte or chronic fr acture IMPRESSION: Mild bilateral pulmonary opacities may represent pneumonia
[2021-10-30] MEDS: CEFTRIAXONE 1,000 MG in NA CHLORIDE 0.9% 50 ML IVPB SCH (08:54)
[2021-10-30] MEDS: NA CHLORIDE 0.9% 1,000 ML IV SCH (08:55)
[2021-10-30] MEDS: HEPARIN 5000 UNIT/ML 1 ML VIAL SQ SCH ×2 (08:57→20:13)
[2021-10-30] MEDS ORDERED: PNEUMOCOCCAL VACCINE 0.5 ML IMVAC ONE (09:00)
[2021-10-30 09:02] LABS: Urine Appearance CLOUDY (Clear); Urine Bilirubin NEGATIVE (Negative); Urine Blood TRACE (Negative); Urine Color YELLOW (Yellow); Urine Glucose NEGATIVE (Negative); Urine Microscopic Reflex ORDER UMIC; Urine Protein TRACE (Negative); Urine Specific Gravity 1.015 (1.005-1.030); Urine Urobilinogen 0.2 mg/dL (0.2-1.0)
[2021-10-30 09:06] LABS: Urine Bacteria <20 /HPF (<20); Urine RBC <5 /HPF (NONE SEEN)
[2021-10-30] MEDS: AZITHROMYCIN IV 500 MG in NA CHLORIDE 0.9% 250 ML IVPB SCH (09:53)
--- NOTE | 2021-10-30 11:01 | P.CNS ---
Date of Consult: 10/30/21 Primary Care Provider: [facility] doctor Chief Complaint: Severe sepsis, pneumonia History of Present Illness: Patient is 86 years of age with history of dementia snf resident's metabolic syndrome. From the emergency room with a diagnosis of presumed sepsis hypotension poor historian does not appear to be any distress Allergies nitrofurantoin [From Macrobid] Allergy (Verified 10/29/21 22:11) Hives/Rash Tetanus Vaccines and Toxoid Allergy (Verified 10/29/21 22:11) unknown Home Medications: Acetaminophen [Tylenol] 650 mg PO Q6HP PRN 10/29/21 Aspirin [Aspirin EC 81 MG] 81 mg PO DAILY 10/29/21 Cranberry Fruit [Cranberry] 400 mg PO BID 10/29/21 Levothyroxine Sodium [Synthroid] 125 mcg PO 0600 10/29/21 Losartan Potassium [Cozaar] 50 mg PO DAILY 10/29/21 Memantine HCl [Namenda] 10 mg PO BID 10/29/21 Mirabegron [Myrbetriq] 50 mg PO DAILY 10/29/21 Omeprazole 20 mg PO DAILY 10/29/21 Simvastatin 10 mg PO BEDTIME 10/29/21 Tramadol HCl [Ultram] 50 mg PO DAILYPRN PRN 10/29/21 levoFLOXacin [Levaquin] 500 mg PO DAILY 10/29/21 - Past Medical/Surgical History -: Dementia -: Hypothyroidism -: Hypertension -: CAD -: COPD -: -: Bilateral knee replacements -: Back surgery Psychosocial/ Personal History: [facility] resident - Family History Mother Medical History: Diabetes Brother Medical History: Diabetes - Social History Smoking Status: Unknown if ever smoked Alcohol use: No CD- Drugs: No Caffeine use: Yes Place of Residence: Home Review of Systems is unable to be obtained Physical Examination Temp Pulse Resp BP Pulse Ox 97.9 F 60 16 105/59 L 97 10/30/21 08:00 10/30/21 08:00 10/30/21 08:00 10/30/21 08:00 10/30/21 08:00 General: Alert, Oriented x1, Cooperative Respiratory: Crackles/rales, Expiratory wheezes Cardiovascular: No edema, Regular rate/rhythm, Normal S1 S2 Gastrointestinal: Normal bowel sounds, Soft and benign Laboratory Data (last 24 hrs) 10/29/21 17:05: PT 16.1 H, INR 1.40, APTT 26.8 10/29/21 17:05: WBC 12.90 H D, Hgb 11.4 L, Hct 36.8, Plt Count 216 10/29/21 17:05: Sodium 138, Potassium 3.7, BUN 36 H, Creatinine 1.85 H, Glucose 108 H, Total Bilirubin 0.4, AST 45 H, ALT 28, Alkaline Phosphatase 110, Amylase 21 L, Lipase 44 L - Problems (1) Pneumonia Current Visit: Yes Status: Acute Plan: Age 86 admitted with possible sepsis most likely she has an atypical pneumonia lateral interstitial changes labs reviewed hemodynamically stable cultures are all pending urinalysis negative continue with present therapy add low-dose IV Decadron continue with present therapy possible discharge tomorrow COVID- negative Qualifiers: Lung location: unspecified part of lung
[2021-10-30] MEDS: ACETAMINOPHEN 500 MG TAB PO PRN (20:12)
[2021-10-30] MEDS: dexAMETHasone 4 MG/ML VIAL IV SCH (20:13)
[2021-10-31] MEDS: NA CHLORIDE 0.9% 1,000 ML IV SCH ×2 (02:02→03:24)
[2021-10-31 06:04] LABS: Absolute Lymphocytes (CBC) 0.7 K/uL (0.7-4.9); Hematocrit 36.7 % (36.0-45.0); Lymphocytes % 11.6 % (15.3-44.8); MPV 8.1 fL (7.6-11.3); RBC Red Blood Cell Count 4.71 M/uL (3.86-4.86)
--- NOTE | 2021-10-31 06:14 | P.PN ---
Date of Service: 10/31/21 Subjective: Improving, off, more energy/more strength Denies any new symptoms/concerns at this time ROS: 10 point ROS as noted above, otherwise negative Physical exam GEN: Alert, orientedx2 HEENT: Normal conjunctiva, sclera anicteric CV: Regular rate and rhythm, no edema Pulm: Nonlabored respirations on 2L, b/l crackles at bases ABD: Soft, nontender, nondistended Neuro: Normal speech, normal affect Problem List Severe sepsis secondary to bilateral lower lobe pneumonia Acute on chronic COPD Elevated troponin Acute kidney injury Hypertension currently with hypotension Hyperlipidemia Hypothyroidism Severe sepsis secondary to bilateral lower lobe pneumonia: Continue IV antibiotics, Rocephin and azithromycin Received 30 cc/kg fluid bolus in ED. IV fluids discontinued Follow-up cultures Blood pressure improved compared to admission Oxygenation stable so far Pulmonology consulted Acute on chronic COPD: Nebulizer treatments as needed Steroids, likely playing a component of her symptoms Reportedly had more wheezing yesterday Elevated troponin: Likely demand ischemia related to severe sepsis, will trend. Consult cardiology for significant elevations in troponin level or chest pain. Acute kidney injury: Prerenal, secondary to sepsis/dehydration. Resolved with IV fluid repletion Hypertension currently with hypotension: Hold hypertensive agents Hypothyroidism HLD Confirm and continue home medications Code status: Chekoharman Garduno [phone] Dispo: Anticipate DC back to [facility] ~2 days Time Spent Managing Pts Care (In Minutes): 35
[2021-10-31 06:20] LABS: Albumin 2.1 g/dL (3.4-5.0); Bilirubin Total 0.2 mg/dL (0.2-1.0); Potassium 4.6 mmol/L (3.5-5.1); Protein, Total 6.8 g/dL (6.4-8.2)
[2021-10-31 06:49] LABS: Blood Morphology Comment NOT SEEN (NOT SEEN); Platelet Estimate ADEQ; White Blood Cell Scan OK (OK)
[2021-10-31] MEDS: CEFTRIAXONE 1,000 MG in NA CHLORIDE 0.9% 50 ML IVPB SCH (08:59)
[2021-10-31] MEDS: dexAMETHasone 4 MG/ML VIAL IV SCH ×2 (09:00→21:23)
[2021-10-31] MEDS: HEPARIN 5000 UNIT/ML 1 ML VIAL SQ SCH ×2 (09:00→21:23)
[2021-10-31] MEDS: AZITHROMYCIN IV 500 MG in NA CHLORIDE 0.9% 250 ML IVPB SCH (10:32)
[2021-10-31] MEDS: ACETAMINOPHEN 500 MG TAB PO PRN ×2 (10:39→21:24)
[2021-11-01 03:55] LABS: Absolute Lymphocytes (CBC) 0.7 K/uL (0.7-4.9); Lymphocytes % 7.1 % (15.3-44.8); MPV 8.3 fL (7.6-11.3); RBC Red Blood Cell Count 4.87 M/uL (3.86-4.86)
[2021-11-01 03:59] VITALS: BP 142/74; TEMP 97.3
[2021-11-01 04:01] LABS: Albumin 2.2 g/dL (3.4-5.0); Bilirubin Total 0.2 mg/dL (0.2-1.0); Potassium 4.4 mmol/L (3.5-5.1)
[2021-11-01] MEDS ORDERED: predniSONE 10 MG TAB PO SCH (09:00)
[2021-11-01] MEDS ORDERED: levoFLOXacin 750 MG TAB PO SCH (09:00)
[2021-11-01] MEDS: HEPARIN 5000 UNIT/ML 1 ML VIAL SQ SCH (09:18)
--- NOTE | 2021-11-01 12:13 | P.DS ---
Admission Date: 10/29/21 Discharge Date: 11/01/21 Primary Care Provider: long-term doctor Disposition: TRANSFER TO GROUP HOME Discharge Condition: FAIR Reason for Admission: Severe sepsis, pneumonia Brief History of Present Illness: 86-year-old female with history of dementia, COPD, CAD, hypertension, hypothyroidism, hyperlipidemia from [facility] presented to the emergency department for suspected sepsis. Daughter at bedside reports patient has not been acting herself for 1 week or so found to be hypotensive with blood pressure of 79/50 by staff, chest x-ray done at facility demonstrates bilateral lower lobe pneumonia. Labs in the emergency department revealed white blood cell count 12.9 hemoglobin 11.4 hematocrit 36.8 creatinine 1.85 GFR 26 BUN 36 troponin 0.15 procalcitonin 3.3 urinalysis with 3+ leukoesterase microscopic analysis pending patient blood pressure improved after 2 L NS bolus currently 96 systolic. Patient admitted for severe sepsis and pneumonia. Hospital Course: Problem List Severe sepsis secondary to bilateral lower lobe pneumonia Acute on chronic COPD Elevated troponin Acute kidney injury Hypertension currently with hypotension Hyperlipidemia Hypothyroidism Severe sepsis secondary to bilateral lower lobe pneumonia: Patient symptoms with IV Rocephin and azithromycin Received 30 cc/kg fluid bolus in ED and treated with IV fluids on the floor. Blood cultures: No growth, urine culture: No growth. Blood pressure improved with treatment. Patient is now hypertensive. Currently stable on room air. Pulmonology assisted with management. Patient clinically improved and stable for discharge. Acute on chronic COPD: Given nebulizer treatments as needed Also treated with a steroid. Elevated troponin: Likely demand ischemia related to severe sepsis. Troponin trended down with monitoring. Acute kidney injury: Prerenal, secondary to sepsis/dehydration. Resolved with IV fluid repletion Hypertension. Hypotension resolved. Resume hypertensive agents on discharge. Hypothyroidism HLD Continued home medications. Vital Signs/Physical Exam: Temp Pulse Resp BP Pulse Ox 97.3 F 57 17 142/74 H 94 11/01/21 03:59 11/01/21 03:59 11/01/21 03:59 11/01/21 03:59 11/01/21 03:59 Laboratory Data at Discharge: WBC 9.80 K/uL (4.3-10.9) D 11/01/21 03:25 Hgb 11.9 g/dL (12.0-15.0) L 11/01/21 03:25 Hct 38.0 % (36.0-45.0) 11/01/21 03:25 Plt Count 263 K/uL (152-406) D 11/01/21 03:25 PT 16.1 SECONDS (9.5-12.5) H 10/29/21 17:05 INR 1.40 10/29/21 17:05 APTT 26.8 SECONDS (24.3-36.9) 10/29/21 17:05 Sodium 140 mmol/L (136-145) 11/01/21 03:25 Potassium 4.4 mmol/L (3.5-5.1) 11/01/21 03:25 BUN 19 mg/dL (7-18) H 11/01/21 03:25 Creatinine 0.79 mg/dL (0.55-1.3) 11/01/21 03:25 Glucose 140 mg/dL (74-106) H 11/01/21 03:25 Total Bilirubin 0.2 mg/dL (0.2-1.0) 11/01/21 03:25 AST 22 U/L (15-37) 11/01/21 03:25 ALT 26 U/L (12-78) 11/01/21 03:25 Alkaline Phosphatase 108 U/L (45-117) 11/01/21 03:25 Troponin I 0.07 ng/mL (0.0-0.045) H 10/30/21 05:22 Amylase 21 U/L (25-115) L 10/29/21 17:05 Lipase 44 U/L (73-393) L 10/29/21 17:05 Home Medications: Acetaminophen [Tylenol] 650 mg PO Q6HP PRN 10/29/21 Aspirin [Aspirin EC 81 MG] 81 mg PO DAILY 10/29/21 Cranberry Fruit [Cranberry] 400 mg PO BID 10/29/21 Levothyroxine Sodium [Synthroid] 125 mcg PO 0600 10/29/21 Losartan Potassium [Cozaar] 50 mg PO DAILY 10/29/21 Memantine HCl [Namenda*] 10 mg PO BID 10/29/21 Mirabegron [Myrbetriq] 50 mg PO DAILY 10/29/21 Omeprazole 20 mg PO DAILY 10/29/21 Simvastatin 10 mg PO BEDTIME 10/29/21 Tramadol HCl [Ultram] 50 mg PO DAILYPRN PRN 10/29/21 levoFLOXacin [Levaquin*] 750 mg PO DAILY #7 tab 11/01/21 predniSONE [Deltasone*] 10 mg PO BID #8 tab 11/01/21 New Medications: predniSONE [Deltasone*] 10 mg PO BID #8 tab levoFLOXacin [Levaquin*] 750 mg PO DAILY #7 tab Diet: AHA Activity: Fall precautions Time spent managing pt's care (in minutes): 40
--- NOTE | 2021-11-01 12:43 | RAD REPORT ---
EXAM DESCRIPTION: RAD - Chest Single View - 11/01/2021 12:34 pm CLINICAL HISTORY: penumonia COMPARISON: Portable October 30 TECHNIQUE: AP portable chest image was obtained 11/01/2021 12:34 pm . FINDINGS: Lung volumes are low. Bilateral interstitial and alveolar opacities are present. Pattern i s similar to prior imaging with possibly slight improvement. No progression is suspected. There is no mass or consolidation. Sternotomy wires in place. Heart and vasculature are normal. No measurable pleural effusion and no pn eumothorax. No acute bone findings seen. 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 No acute aortic findings suspected. IMPRESSION: Bilateral interstitial and alveolar opacification pattern similar to fractionally improv ed from October 30.
--- NOTE | 2021-11-01 12:44 | P.PN ---
Subjective Date of Service: 11/01/21 Primary Care Provider: senior living doctor Chief Complaint: Pneumonia Subjective: Improving (Patient is doing well no new complaints eating and drinking feels reasonably) Review of Systems General: Weakness Respiratory: Shortness of Breath Physical Examination - Vital Signs Temperature: 97.3 F Blood Pressure: 142/74 Pulse: 57 Respirations: 17 Pulse Ox (%): 94 - Physical Exam General: Alert, In no apparent distress, Oriented x3 Respiratory: Crackles/rales Cardiovascular: Normal S1 S2 Assessment & Plan - Problems (Diagnosis) (1) Pneumonia Current Visit: Yes Status: Acute Plan: Patient admitted with pneumonia doing well feels a little weak chest x-ray shows minimal changes plan to discharge on levofloxacin 500 mg daily for another 4 days low-dose prednisone 10 mg twice a day follow-up with me in 1 to 2-week vital signs all stable afebrile White count declined Qualifiers: Laterality: unspecified laterality Lung location: unspecified part of lung
[2021-11-01 13:07] VITALS: O2SAT 94
== END 2021-11-01 03:45 | DRG 871 ==
LOC: ER 16:28 → ERHOLD 20:05 → 2ND 20:30
PROVIDERS: ADMIT Hospitalist; ATTEND Internal Medicine
DX: A41.9 Sepsis, unspecified organism (principal); J18.1 Lobar pneumonia, unspecified organism; J44.0 Chronic obstructive pulmonary disease with (acute) lower respiratory infection; N17.9 Acute kidney failure, unspecified; R65.20 Severe sepsis without septic shock; I25.10 Atherosclerotic heart disease of native coronary artery without angina pectoris; I10 Essential (primary) hypertension; E03.9 Hypothyroidism, unspecified; E78.5 Hyperlipidemia, unspecified; E86.0 Dehydration; D72.829 Elevated white blood cell count, unspecified; R77.8 Other specified abnormalities of plasma proteins; Z88.1 Allergy status to other antibiotic agents; Z88.2 Allergy status to sulfonamides; Z79.890 Hormone replacement therapy; Z79.82 Long term (current) use of aspirin; Z79.899 Other long term (current) drug therapy; Z66 Do not resuscitate; Z96.653 Presence of artificial knee joint, bilateral; Z87.891 Personal history of nicotine dependence; Z20.822 Contact with and (suspected) exposure to COVID-19
CPT/HCPCS: 36415; 71045; 80048; 80053; 80076; 81003; 81015; 82150; 82550; 82553; 83605; 83690; 84145; 84439; 84443; 84484; 85025; 85610; 85730; 87040; 87086; 87088; 93005; 94010; 96361; 96365; 96375; 97116; 97161; 99285; J0456; J1100; J1644; J7030; J7050; J7512; U0003

== ENCOUNTER 2022-02-05 03:28 | Emergency (ER) | payer OTHER ==
--- OUTSIDE RECORDS SUMMARY | 2022-02-05 03:31 | XMS REPORT | Continuity of Care Document ---
:1935 Author Organization [facility] t Address [address] [place] [address] Care Team Providers Name Role Phone SABRINA MARQUEZ Primary Care Physician Unavailable [id number] Attending Clinician Unavailable DELMA BOOKER Attending Clinician Unavailable Jacek Attending Clinician Unavailable Charly PRATT Attending Clinician Unavailable IDA Attending Clinician Unavailable FITZ CERDA Attending Clinician Unavailable [id number] Admitting Clinician Unavailable Jacek Admitting Clinician Unavailable ALBJORGE A Admitting Clinician Unavailable FITZ CERDA Admitting Clinician Unavailable Payers Payer Name Policy Type Policy Number Effective Date Expiration Date S edmund [facility] [id number] MEDICARE PART A \T\ [id number] 1999 B 00:00:00 [facility] [id number] 2013 GENERAL 00:00:00 [place]IC[place]: [id number] 1999 [employer] 00:00:00 [facility] [id number] 2001 [facility] 00:00:00 (INDEMNITY) Problems This patient has no known problems. Allergies, Adverse Reactions, Alerts Allergy Allergy Status Severity Reaction(s) Onset Inactive Treating Comm ents Source Name Type Date Date Clinician TETANUS DRUG Active Hives 2018-0 [facility] TOXOID 6-12 ity of 00:00: [address] [place] tetanus DA Active [place] 2014- [facility] toxoid, 4-22 Clear adsorbed 00:00: [address] nitrofur DA Active [place] 2015-0 [facility] antoin 4-22 Clear 00:00: Schmidt [address] [facility] Medications This patient has no known medications. Procedures This patient has no known procedures. Encounters Start End Encounter Admission Attending Care Care Encounter Source Date/Time Date/Time Type Type Clinicians Facility Department ID 2021-11-17 Outpatient [id number] [facility] RE[facility] [id number] [facility] 11:26:36 0127 2021-08-21 Emergency [facility] [id number] [facility] 10:03:22 [facility] 2021-08-20 Emergency [facility] [id number] [facility] 19:50:02 [facility] 2021-04-26 2021-04-26 Outpatient ADE [facility] [id number] [facility] 09:30:00 09:30:00 [id number] [facility] 2021-04-06 2021-04-06 Outpatient R ADE [facility] [id number] [facility] 10:00:00 10:00:00 [id number] [facility] 2021-04-06 2021-04-06 Outpatient Samson BOOKER [facility] [id number] Univers 10:00:00 10:00:00 [facility] 2021-03-04 2021-03-04 Outpatient GC_[facility]PR[facility] PRIV PRIV [id number] [facility] 12:43:00 12:43:00 _Juan [id number] [facility] 2021-01-06 2021-01-06 Outpatient Samson PRATT [facility] [id number] Univers 13:00:00 13:00:00 MALACHI [id number] [facility] 2021-01-06 2021-01-06 Outpatient Samson PRATT [facility] [id number] Univers 13:00:00 13:00:00 MALACHI [facility] 2020-12-16 2020-12-16 Outpatient [facility] [id number] [facility] 15:20:00 15:20:00 [id number] [facility] 2020-12-16 2020-12-16 Outpatient Samson PRATT [facility] [id number] [facility] 15:20:00 15:20:00 MALACHI [facility] 2020-10-26 2020-10-26 Outpatient BOOKER, [facility] [id number] Univers 09:30:00 09:30:00 [id number] [facility] 2020-10-06 2020-10-06 Outpatient R BOOKER, [facility] [id number] [facility] 10:00:00 10:00:00 [id number] [facility] 2020-10-06 2020-10-06 Outpatient R BOOKER, [facility] [id number] [facility] 10:00:00 10:00:00 [facility] 2020-04-19 2020-04-19 Outpatient R BOOKER, [facility] [id number] Univers 10:00:00 10:00:00 [facility] 2020-04-11 2020-04-12 Outpatient X SEPIDEHYOVANI [facility] [id number] Univers 18:25:17 17:04:00 CAPRI [facility] 2019-09-10 2019-09-20 Inpatient 3 PRASHANT, [facility] [id number] [facility] 19:05:00 11:25:00 [id number] [id number] Results This patient has no known results.
[2022-02-05 04:12] LABS: Absolute Lymphocytes (CBC) 2.8 K/uL (0.7-4.9); Hematocrit 42.5 % (36.0-45.0); Lymphocytes % 47.2 % (15.3-44.8); MPV 8.6 fL (7.6-11.3)
[2022-02-05 04:16] LABS: Protime INR 0.96
[2022-02-05 04:31] LABS: Potassium 3.9 mmol/L (3.5-5.1)
--- NOTE | 2022-02-05 06:50 | ER ---
Nurse's Notes [facility] Name: Angela Alston Age: 86 yrs Sex: Female : 1935 Arrival Date: 02/05/2022 Time: 03:30 Bed 14 Private MD: Diagnosis: Cerebral infarction, unspecified;Headache Presentation: 02/05 03:30 Chief complaint: EMS states: "We were called out because the patient was having stroke tw5 like symptoms according to [facility]. The patient states she felt like her mouth was crooked and she had a headache. We got an NIHSS of 0.". Coronavirus screen: Vaccine status: Patient reports receiving the 2nd dose of the covid vaccine. doesn't recall brand. Ebola Screen: Patient negative for fever greater than or equal to 101.5 degrees Fahrenheit, and additional compatible Ebola Virus Disease symptoms Patient denies exposure to infectious person. Patient denies travel to an Ebola-affected area in the 21 days before illness onset. Initial Sepsis Screen: Does the patient meet any 2 criteria? No. Patient's initial sepsis screen is negative. Does the patient have a suspected source of infection? No. Patient's initial sepsis screen is negative. Risk Assessment: Do you want to hurt yourself or someone else? Patient reports no desire to harm self or others. Onset of symptoms is unknown. 03:30 Method Of Arrival: EMS: [facility] tw5 03:30 Acuity: KANDACE 3 tw5 03:59 No acute neurological deficit is noted. Pre-hospital glucose is not applicable to this tw5 patient. Triage Assessment: 03:42 General: Appears in no apparent distress. Behavior is calm, cooperative, appropriate tw5 for age. Pain: Complains of pain in occipital area Pain currently is 3 out of 10 on a pain scale. Neuro: Level of Consciousness is awake, alert, obeys commands, Oriented to person, situation. 03:59 The onset of the patients symptoms was at an unknown time. tw5 Historical: - Allergies: 03:42 Macrobid; tw5 03:42 Tetanus Vaccines \\T\\ Toxoid; tw5 - Home Meds: 03:42 aspirin 81 mg Oral TbEC [Active]; levothyroxine 125 mcg cap 1 cap once daily [Active]; tw5 losartan 50 mg Oral tab 1 tab once daily [Active]; mirabegron 50 mg Oral Tb24 1 tab once daily [Active]; Namenda 10 mg Oral tab 1 tab 2 times per day [Active]; omeprazole 20 mg Oral cpDR 1 cap once daily [Active]; simvastatin 10 mg Oral tab 1 tab once daily [Active]; tramadol 50 mg Oral tab 1 tab every 24 hours as needed [Active]; - PMHx: 03:42 Chronic obstructive lung disease; Dementia; depressive disorder; Hyperlipidemia; tw5 Hypertensive disorder; Hypothyroidism; Transient cerebral ischemia; - Immunization history:: Flu vaccine is up to date. - Social history:: Smoking status: Patient/guardian denies using tobacco, the patient reports quitting approximately 9 years ago. - Family history:: not pertinent. - Hospitalizations: : No recent hospitalization is reported. Screenin:44 Abuse screen: Denies threats or abuse. Denies injuries from another. Nutritional tw5 screening: No deficits noted. Tuberculosis screening: No symptoms or risk factors identified. Fall Risk Mental Status- Overestimates/Forgets Limitations (15 pts.). Assessment: 03:44 General: Appears in no apparent distress. Behavior is calm, cooperative, appropriate tw5 for age. 03:45 VAN Scoring: Arm Drift: Patients demonstrates NO arm weakness. Patient is VAN Negative. tw5 The patient has not been NPO before screening. The patient is alert, and able to follow commands. The patient does not exhibit slurred or garbled speech. The patient is not exhibiting difficulty speaking. The patient does not exhibit difficulty understanding words. The patient is able to swallow own secretions with no drooling or need for suction. Patient tolerated one teaspoon of water. No drooling, immediate coughing, gurgling, or clearing of the throat was noted. The patient tolerated 90mL of water. No drooling, immediate coughing, gurgling, or clearing of the throat was noted. The patient passed the bedside swallow screening. Oral medications may be given as ordered. Contact Physician for further diet orders. Provider notified of bedside swallow screening results: Pk Ferreira MD. T-PA (Activase) Screening: Contraindications: Patient reports onset of signs and symptoms of stroke greater than 6 hours ago: Yes. 03:59 Pain: Complains of pain in occipital area Pain currently is 3 out of 10 on a pain tw5 scale. Neuro: Oriented to person, situation. 07:30 General: Appears comfortable, Behavior is calm, cooperative. Pain: Complains of pain in aa5 occipital area and base of the skull Unable to use pain scale. Does not appear to understand pain scale. Neuro: Level of Consciousness is awake, obeys commands, confused, Oriented to person, situation, Obstetrician Gynecologist are equal bilaterally Moves all extremities. Speech is normal, Facial symmetry appears normal, Pupils are PERRLA, Denies weakness blurred vision dizziness, paresthesias numbness. Cardiovascular: Heart tones S1 S2 present Rhythm is sinus bradycardia. Respiratory: Airway is patent Respiratory effort is even, unlabored, Respiratory pattern is regular, symmetrical, Breath sounds are clear bilaterally. GI: Abdomen is round non-distended, Bowel sounds present X 4 quads. Abd is soft and non tender X 4 quads. : brief noted. EENT: No signs and/or symptoms were reported regarding the EENT system. Derm: Skin is pink, warm \\T\\ dry. Musculoskeletal: Range of motion: intact in all extremities. 08:00 Reassessment: Pt assisted to bedside commode, pt cleaned of stool, pt placed back in aa5 bed. . 08:30 Neuro: Level of Consciousness is awake, obeys commands, confused, Oriented to person, aa5 situation. Cardiovascular: Rhythm is sinus bradycardia. Respiratory: Airway is patent Respiratory effort is even, unlabored, Respiratory pattern is regular, symmetrical. Derm: Skin is pink, warm \\T\\ dry. 09:30 Reassessment: Pt resting in bed with eyes closed, respirations even and unlabored. . aa5 10:30 Reassessment: Pt resting in bed with eyes closed respirations even and unlabored, skin aa5 is pink/warm/dry. . 11:00 Reassessment: Pt cleaned of urine, pt reports stress incontinence. . aa5 11:00 Neuro: Level of Consciousness is awake, obeys commands, confused, Oriented to person, aa5 situation. Respiratory: Airway is patent Respiratory effort is even, unlabored, Respiratory pattern is regular, symmetrical. Derm: Skin is pink, warm \\T\\ dry. Vital Signs: 03:30 BP 146 / 85; Pulse 57; Resp 18; Temp 97.8(O); Pulse Ox 97% on R/A; Weight 63.5 kg (R); tw5 Height 4 ft. 11 in. (149.86 cm) (R); Pain 3/10; 07:30 BP 121 / 66; Pulse 60; Resp 16 S; Temp 97.8(TE); Pulse Ox 97% on R/A; aa5 08:00 BP 144 / 73; Pulse 58; Resp 18 S; Pulse Ox 96% on R/A; aa5 09:00 BP 126 / 84; Pulse 50; Resp 16 S; Pulse Ox 96% on R/A; aa5 10:30 BP 163 / 86; Pulse 55; Resp 18 S; Temp 97.8(TE); Pulse Ox 95% on R/A; aa5 11:30 BP 141 / 88; Pulse 58; Resp 16 S; Pulse Ox 96% on R/A; aa5 03:30 Body Mass Index 28.28 (63.50 kg, 149.86 cm) tw5 NIH Stroke Scale Scores: 03:45 NIHSS Score: 0 tw5 03:58 NIHSS Score: 1 rn 07:30 NIHSS Score: 2 aa5 11:00 NIHSS Score: 2 aa5 12:00 NIHSS Score: 2 aa5 ED Course: 03:30 Patient arrived in ED. tw5 03:37 Pk Ferreira MD is Attending Physician. rn 03:42 Triage completed. tw5 03:42 Arm band placed on right wrist. tw5 03:44 Patient has correct armband on for positive identification. Placed in gown. Bed in low tw5 position. Call light in reach. Side rails up X2. monitor tech on. Pulse ox on. NIBP on. Door closed. Noise minimized. Moved to private room. Warm blanket given. Verbal reassurance given. 03:56 Stroke CXR 1 View In Process Unspecified. EDMS 04:04 Ptt, Activated Sent. tw5 04:04 Basic Metabolic Panel Sent. tw5 04:04 CBC with Diff Sent. tw5 04:04 Protime (+inr) Sent. tw5 04:16 Raquel Avendaño RN is Primary Nurse. ke1 04:35 Ct Stroke Brain Wo Cont In Process Unspecified. EDMS 05:35 CT Head Angio In Process Unspecified. EDMS 07:00 Report received from KYE García. aa5 07:28 Attending Physician role handed off by Pk Ferreira MD gary 07:28 Pacheco Tabor MD is Attending Physician. gary 10:01 Primary Nurse role handed off by Raquel Avendaño RN em1 12:00 No provider procedures requiring assistance completed. Patient transferred, IV remains aa5 in place. Administered Medications: 07:06 CANCELLED (Duplicate Order): Aspirin 325 mg PO once rn 07:30 Drug: foLIC Acid 1 mg Route: IVPB; Site: right antecubital; aa5 07:45 Follow up: Response: No adverse reaction aa5 07:30 Drug: Aspirin Chewable Tablet 324 mg Route: PO; aa5 08:30 Follow up: Response: No adverse reaction aa5 Outcome: 06:50 Discharge ordered by . rn 07:38 ER care complete, transfer ordered by MD. [facility] 12:00 Transferred by ground EMS to [facility], Transfer form completed. aa5 X-rays sent w/ patient. Note: Report given to [facility] 12:00 Condition: stable 12:00 Discharge instructions given to patient, Instructed on the need for transfer, Demonstrated understanding of instructions. 12:20 Patient left the ED. aa5 NIH Stroke Scale - NIH Stroke Score Date: 02/05/2022 Time: 03:45 Total Score = 0 1a. Level of Consciousness (LOC) - 0(Alert) 1b. Level of Consciousness (LOC) (Month \\T\\ Age) - 0(Both) 1c. LOC Commands (Open \\T\\ Closes Eyes/Manager Cost) - 0(Both) 2. Best Gaze (Lateral Gaze Paresis) - 0(Normal) 3. Visual Field Loss - 0(No visual loss) 4. Facial Palsy - 0(Normal) 5a. Left Arm: Motor (10-second hold) - 0(No drift) 5b. Right Arm: Motor (10-second hold) - 0(No drift) 6a. Left Leg: Motor (5-second hold - always test supine) - 0(No drift) 6b. Right Leg: Motor (5-second hold - always test supine) - 0(No drift) 7. Limb Ataxia (finger/nose \\T\\ heel/izaguirre - test with eyes open) - 0(Absent) 8. Sensory Loss (pinprick arms/legs/face) - 0(Normal) 9. Best Language: Aphasia (description/naming/reading) - 0(No aphasia) 10. Dysarthria (speech clarity - read or repeat words) - 0(Normal) 11. Extinction and Inattention (visual/tactile/auditory/spatial/personal) - 0(No abnormality) Initials: tw5 NIH Stroke Scale - NIH Stroke Score Date: 02/05/2022 Time: 03:58 Total Score = 1 1a. Level of Consciousness (LOC) - 0(Alert) 1b. Level of Consciousness (LOC) (Month \\T\\ Age) - 1(One) 1c. LOC Commands (Open \\T\\ Closes Eyes/Manager Cost) - 0(Both) 2. Best Gaze (Lateral Gaze Paresis) - 0(Normal) 3. Visual Field Loss - 0(No visual loss) 4. Facial Palsy - 0(Normal) 5a. Left Arm: Motor (10-second hold) - 0(No drift) 5b. Right Arm: Motor (10-second hold) - 0(No drift) 6a. Left Leg: Motor (5-second hold - always test supine) - 0(No drift) 6b. Right Leg: Motor (5-second hold - always test supine) - 0(No drift) 7. Limb Ataxia (finger/nose \\T\\ heel/izaguirre - test with eyes open) - 0(Absent) 8. Sensory Loss (pinprick arms/legs/face) - 0(Normal) 9. Best Language: Aphasia (description/naming/reading) - 0(No aphasia) 10. Dysarthria (speech clarity - read or repeat words) - 0(Normal) 11. Extinction and Inattention (visual/tactile/auditory/spatial/personal) - 0(No abnormality) Initials: rn NIH Stroke Scale - NIH Stroke Score Date: 02/05/2022 Time: 07:30 Total Score = 2 1a. Level of Consciousness (LOC) - 0(Alert) 1b. Level of Consciousness (LOC) (Month \\T\\ Age) - 2(Neither) 1c. LOC Commands (Open \\T\\ Closes Eyes/Manager Cost) - 0(Both) 2. Best Gaze (Lateral Gaze Paresis) - 0(Normal) 3. Visual Field Loss - 0(No visual loss) 4. Facial Palsy - 0(Normal) 5a. Left Arm: Motor (10-second hold) - 0(No drift) 5b. Right Arm: Motor (10-second hold) - 0(No drift) 6a. Left Leg: Motor (5-second hold - always test supine) - 0(No drift) 6b. Right Leg: Motor (5-second hold - always test supine) - 0(No drift) 7. Limb Ataxia (finger/nose \\T\\ heel/izaguirre - test with eyes open) - 0(Absent) 8. Sensory Loss (pinprick arms/legs/face) - 0(Normal) 9. Best Language: Aphasia (description/naming/reading) - 0(No aphasia) 10. Dysarthria (speech clarity - read or repeat words) - 0(Normal) 11. Extinction and Inattention (visual/tactile/auditory/spatial/personal) - 0(No abnormality) Initials: aa5 NIH Stroke Scale - NIH Stroke Score Date: 02/05/2022 Time: 11:00 Total Score = 2 1a. Level of Consciousness (LOC) - 0(Alert) 1b. Level of Consciousness (LOC) (Month \\T\\ Age) - 2(Neither) 1c. LOC Commands (Open \\T\\ Closes Eyes/Manager Cost) - 0(Both) 2. Best Gaze (Lateral Gaze Paresis) - 0(Normal) 3. Visual Field Loss - 0(No visual loss) 4. Facial Palsy - 0(Normal) 5a. Left Arm: Motor (10-second hold) - 0(No drift) 5b. Right Arm: Motor (10-second hold) - 0(No drift) 6a. Left Leg: Motor (5-second hold - always test supine) - 0(No drift) 6b. Right Leg: Motor (5-second hold - always test supine) - 0(No drift) 7. Limb Ataxia (finger/nose \\T\\ heel/izaguirre - test with eyes open) - 0(Absent) 8. Sensory Loss (pinprick arms/legs/face) - 0(Normal) 9. Best Language: Aphasia (description/naming/reading) - 0(No aphasia) 10. Dysarthria (speech clarity - read or repeat words) - 0(Normal) 11. Extinction and Inattention (visual/tactile/auditory/spatial/personal) - 0(No abnormality) Initials: aa5 NIH Stroke Scale - NIH Stroke Score Date: 02/05/2022 Time: 12:00 Total Score = 2 1a. Level of Consciousness (LOC) - 0(Alert) 1b. Level of Consciousness (LOC) (Month \\T\\ Age) - 2(Neither) 1c. LOC Commands (Open \\T\\ Closes Eyes/Manager Cost) - 0(Both) 2. Best Gaze (Lateral Gaze Paresis) - 0(Normal) 3. Visual Field Loss - 0(No visual loss) 4. Facial Palsy - 0(Normal) 5a. Left Arm: Motor (10-second hold) - 0(No drift) 5b. Right Arm: Motor (10-second hold) - 0(No drift) 6a. Left Leg: Motor (5-second hold - always test supine) - 0(No drift) 6b. Right Leg: Motor (5-second hold - always test supine) - 0(No drift) 7. Limb Ataxia (finger/nose \\T\\ heel/izaguirre - test with eyes open) - 0(Absent) 8. Sensory Loss (pinprick arms/legs/face) - 0(Normal) 9. Best Language: Aphasia (description/naming/reading) - 0(No aphasia) 10. Dysarthria (speech clarity - read or repeat words) - 0(Normal) 11. Extinction and Inattention (visual/tactile/auditory/spatial/personal) - 0(No abnormality) Initials: aa5 Signatures: Dispatcher [employer] EDPacheco Baca MD MD cha Nieto, Roman, MD MD rn Martinez, Eric em1 Lashawn Lee RN RN aa5 Sirisha Downey tw5 Raquel Avendaño RN RN ke1 Corrections: (The following items were deleted from the chart) 03:51 03:30 Acuity: KANDACE 4 tw5 tw5
--- NOTE | 2022-02-05 06:51 | EDPHYS ---
Physician Documentation [facility] Name: Angela Alston Age: 86 yrs Sex: Female : 1935 Arrival Date: 02/05/2022 Time: 03:30 Bed 14 Private MD: ED Physician Pacheco Tabor HPI: 02/05 03:57 This 86 yrs old Female presents to ER via EMS with complaints of crooked mouth, rn headache. 03:58 The patient presents to the emergency department with subjective crooked mouth on left rn side. Onset: The symptoms/episode began/occurred at an unknown time. Context: occurred at home, occurred while the patient was at rest. Associated signs and symptoms: Pertinent positives: headache, Pertinent negatives: fever, nausea, paresthesias, seizure, syncope, blurred vision, double vision, visual field changes, loss of vision, weakness. Severity of symptoms: At their worst the symptoms were mild in the emergency department the symptoms have improved. The patient has not experienced similar symptoms in the past. The patient has not recently seen a physician. Historical: - Allergies: 03:42 Macrobid; tw5 03:42 Tetanus Vaccines \\T\\ Toxoid; tw5 - Home Meds: 03:42 aspirin 81 mg Oral TbEC [Active]; levothyroxine 125 mcg cap 1 cap once daily [Active]; tw5 losartan 50 mg Oral tab 1 tab once daily [Active]; mirabegron 50 mg Oral Tb24 1 tab once daily [Active]; Namenda 10 mg Oral tab 1 tab 2 times per day [Active]; omeprazole 20 mg Oral cpDR 1 cap once daily [Active]; simvastatin 10 mg Oral tab 1 tab once daily [Active]; tramadol 50 mg Oral tab 1 tab every 24 hours as needed [Active]; - PMHx: 03:42 Chronic obstructive lung disease; Dementia; depressive disorder; Hyperlipidemia; tw5 Hypertensive disorder; Hypothyroidism; Transient cerebral ischemia; - Immunization history:: Flu vaccine is up to date. - Social history:: Smoking status: Patient/guardian denies using tobacco, the patient reports quitting approximately 9 years ago. - Family history:: not pertinent. - Hospitalizations: : No recent hospitalization is reported. ROS: 03:58 Constitutional: Negative for fever, chills, and weight loss, Eyes: Negative for injury, rn pain, redness, and discharge, ENT: Negative for injury, pain, and discharge, Neck: Negative for injury, pain, and swelling, Cardiovascular: Negative for chest pain, palpitations, and edema, Respiratory: Negative for shortness of breath, cough, wheezing, and pleuritic chest pain, Abdomen/GI: Negative for abdominal pain, nausea, vomiting, diarrhea, and constipation, Back: Negative for injury and pain, : Negative for injury, bleeding, discharge, and swelling, MS/Extremity: Negative for injury and deformity, Skin: Negative for injury, rash, and discoloration, Neuro: Negative for numbness, tingling, and seizure. Exam: 03:58 Constitutional: This is a well developed, well nourished patient who is awake, alert, rn and in no acute distress. Head/Face: Normocephalic, atraumatic. Eyes: Periorbital areas with no swelling, redness, or edema. Cardiovascular: Regular rate and rhythm. No pulse deficits. Respiratory: Speaking full sentences, unlabored. No increased work of breathing, no retractions or nasal flaring. Abdomen/GI: Soft, non-tender Skin: Warm, dry MS/ Extremity: Pulses equal, no cyanosis. Neurovascular intact. Full, normal range of motion. Equal circumference. Neuro: Awake and alert, GCS 15, oriented to person, place, and situation. No facial droop/weakness noted. Cranial nerves II-XII grossly intact. Motor strength 5/5 in all extremities. Sensory grossly intact. Cerebellar exam normal. Normal gait. Vital Signs: 03:30 BP 146 / 85; Pulse 57; Resp 18; Temp 97.8(O); Pulse Ox 97% on R/A; Weight 63.5 kg (R); tw5 Height 4 ft. 11 in. (149.86 cm) (R); Pain 3/10; 07:30 BP 121 / 66; Pulse 60; Resp 16 S; Temp 97.8(TE); Pulse Ox 97% on R/A; aa5 08:00 BP 144 / 73; Pulse 58; Resp 18 S; Pulse Ox 96% on R/A; aa5 09:00 BP 126 / 84; Pulse 50; Resp 16 S; Pulse Ox 96% on R/A; aa5 10:30 BP 163 / 86; Pulse 55; Resp 18 S; Temp 97.8(TE); Pulse Ox 95% on R/A; aa5 11:30 BP 141 / 88; Pulse 58; Resp 16 S; Pulse Ox 96% on R/A; aa5 03:30 Body Mass Index 28.28 (63.50 kg, 149.86 cm) tw5 NIH Stroke Scale Scores: 03:45 NIHSS Score: 0 tw5 03:58 NIHSS Score: 1 rn 07:30 NIHSS Score: 2 aa5 11:00 NIHSS Score: 2 aa5 12:00 NIHSS Score: 2 aa5 MDM: 03:37 Patient medically screened. rn 03:38 ED course: Per EMS, not clear when last known normal was, group home staff mentioned rn to them that patient reported feeling "crooked mouth" at 11pm. That would put patient greater than 4.5 hours, and now states she does not feel like her mouth is crooked anymore.. 03:58 ED course: NIH scale of 1 (orientation), but patient with advanced dementia.. rn 06:47 Data reviewed: vital signs, nurses notes, lab test result(s), EKG, radiologic studies, rn CT scan, plain films, and as a result, I will discharge patient. Counseling: I had a detailed discussion with the patient and/or guardian regarding: the historical points, exam findings, and any diagnostic results supporting the discharge/admit diagnosis, lab results, radiology results, the need for outpatient follow up, to return to the emergency department if symptoms worsen or persist or if there are any questions or concerns that arise at home. Response to treatment: the patient's symptoms have resolved after treatment, the patient's condition has returned to base line, and as a result, I will discharge patient. Special discussion: I discussed with the patient/guardian in detail that at this point there is no indication for admission to the hospital. It is understood, however, that if the symptoms persist or worsen the patient needs to return immediately for re-evaluation. ED course: CT head no acute findings, has been back to baseline since arrival here. EMS didn't notice facial droop, no facial droop here. Will dc back to group home. Already on aspirin. . 07:06 ED course: Ct angio shows V3 segment of left vertebral artery non-opacified, indicating rn possible dissection and occlusion. Given patient's posterior headache and neurologic complaint. . 07:28 Patient medically screened. gary 02/05 03:38 Order name: Basic Metabolic Panel; Complete Time: 04:40 rn 02/05 03:38 Order name: CBC with Diff; Complete Time: 04:40 rn 02/05 03:38 Order name: Protime (+inr); Complete Time: 04:40 rn 02/05 03:38 Order name: Ptt, Activated; Complete Time: 04:40 rn 02/05 04:14 Order name: Glucose, Ancillary Testing; Complete Time: 04:40 EDMS 02/05 07:11 Order name: SARS-COV-2 RT PCR (Document "Date of Onset" if Symptomatic) ds4 02/05 03:38 Order name: Stroke CXR 1 View rn 02/05 03:38 Order name: EKG; Complete Time: 03:39 rn 02/05 03:42 Order name: Ct Stroke Brain Wo Cont EDMS 02/05 04:42 Order name: CT Head Angio rn 02/05 03:38 Order name: Accucheck; Complete Time: 04:04 rn 02/05 03:38 Order name: Cardiac monitoring; Complete Time: 03:49 rn 02/05 03:38 Order name: EKG - Nurse/Tech; Complete Time: 04:04 rn 02/05 03:38 Order name: IV Saline Lock; Complete Time: 04:04 rn 02/05 03:38 Order name: Labs collected and sent; Complete Time: 04:04 rn 02/05 03:38 Order name: NPO; Complete Time: 03:44 rn 02/05 03:38 Order name: O2 Per Protocol; Complete Time: 03:49 rn 02/05 03:38 Order name: O2 Sat Monitoring; Complete Time: 03:49 rn 02/05 03:38 Order name: Stroke Swallow Screen; Complete Time: 03:49 rn Administered Medications: 07:06 CANCELLED (Duplicate Order): Aspirin 325 mg PO once rn 07:30 Drug: foLIC Acid 1 mg Route: IVPB; Site: right antecubital; aa5 07:45 Follow up: Response: No adverse reaction aa5 07:30 Drug: Aspirin Chewable Tablet 324 mg Route: PO; aa5 08:30 Follow up: Response: No adverse reaction aa5 Disposition Summary: 02/05/22 07:38 Transfer Ordered Transfer Location: [facility] gary Reason: Higher level of care gary Condition: Stable(02/05/22 07:38) gary Problem: new(02/05/22 07:38) gary Symptoms: have improved(02/05/22 07:38) gary Accepting Physician: to neuro tele, dr rodriguez(02/05/22 12:20) aa5 Diagnosis - Cerebral infarction, unspecified gary - Headache gary Forms: - Medication Reconciliation Form gary - SBAR form gary NIH Stroke Scale - NIH Stroke Score Date: 02/05/2022 Time: 03:45 Total Score = 0 1a. Level of Consciousness (LOC) - 0(Alert) 1b. Level of Consciousness (LOC) (Month \\T\\ Age) - 0(Both) 1c. LOC Commands (Open \\T\\ Closes Eyes/Longitudinal Float Operator) - 0(Both) 2. Best Gaze (Lateral Gaze Paresis) - 0(Normal) 3. Visual Field Loss - 0(No visual loss) 4. Facial Palsy - 0(Normal) 5a. Left Arm: Motor (10-second hold) - 0(No drift) 5b. Right Arm: Motor (10-second hold) - 0(No drift) 6a. Left Leg: Motor (5-second hold - always test supine) - 0(No drift) 6b. Right Leg: Motor (5-second hold - always test supine) - 0(No drift) 7. Limb Ataxia (finger/nose \\T\\ heel/izaguirre - test with eyes open) - 0(Absent) 8. Sensory Loss (pinprick arms/legs/face) - 0(Normal) 9. Best Language: Aphasia (description/naming/reading) - 0(No aphasia) 10. Dysarthria (speech clarity - read or repeat words) - 0(Normal) 11. Extinction and Inattention (visual/tactile/auditory/spatial/personal) - 0(No abnormality) Initials: tw5 NIH Stroke Scale - NIH Stroke Score Date: 02/05/2022 Time: 03:58 Total Score = 1 1a. Level of Consciousness (LOC) - 0(Alert) 1b. Level of Consciousness (LOC) (Month \\T\\ Age) - 1(One) 1c. LOC Commands (Open \\T\\ Closes Eyes/Longitudinal Float Operator) - 0(Both) 2. Best Gaze (Lateral Gaze Paresis) - 0(Normal) 3. Visual Field Loss - 0(No visual loss) 4. Facial Palsy - 0(Normal) 5a. Left Arm: Motor (10-second hold) - 0(No drift) 5b. Right Arm: Motor (10-second hold) - 0(No drift) 6a. Left Leg: Motor (5-second hold - always test supine) - 0(No drift) 6b. Right Leg: Motor (5-second hold - always test supine) - 0(No drift) 7. Limb Ataxia (finger/nose \\T\\ heel/izaguirre - test with eyes open) - 0(Absent) 8. Sensory Loss (pinprick arms/legs/face) - 0(Normal) 9. Best Language: Aphasia (description/naming/reading) - 0(No aphasia) 10. Dysarthria (speech clarity - read or repeat words) - 0(Normal) 11. Extinction and Inattention (visual/tactile/auditory/spatial/personal) - 0(No abnormality) Initials: anette NIH Stroke Scale - NIH Stroke Score Date: 02/05/2022 Time: 07:30 Total Score = 2 1a. Level of Consciousness (LOC) - 0(Alert) 1b. Level of Consciousness (LOC) (Month \\T\\ Age) - 2(Neither) 1c. LOC Commands (Open \\T\\ Closes Eyes/Longitudinal Float Operator) - 0(Both) 2. Best Gaze (Lateral Gaze Paresis) - 0(Normal) 3. Visual Field Loss - 0(No visual loss) 4. Facial Palsy - 0(Normal) 5a. Left Arm: Motor (10-second hold) - 0(No drift) 5b. Right Arm: Motor (10-second hold) - 0(No drift) 6a. Left Leg: Motor (5-second hold - always test supine) - 0(No drift) 6b. Right Leg: Motor (5-second hold - always test supine) - 0(No drift) 7. Limb Ataxia (finger/nose \\T\\ heel/izaguirre - test with eyes open) - 0(Absent) 8. Sensory Loss (pinprick arms/legs/face) - 0(Normal) 9. Best Language: Aphasia (description/naming/reading) - 0(No aphasia) 10. Dysarthria (speech clarity - read or repeat words) - 0(Normal) 11. Extinction and Inattention (visual/tactile/auditory/spatial/personal) - 0(No abnormality) Initials: aa5 NIH Stroke Scale - NIH Stroke Score Date: 02/05/2022 Time: 11:00 Total Score = 2 1a. Level of Consciousness (LOC) - 0(Alert) 1b. Level of Consciousness (LOC) (Month \\T\\ Age) - 2(Neither) 1c. LOC Commands (Open \\T\\ Closes Eyes/Longitudinal Float Operator) - 0(Both) 2. Best Gaze (Lateral Gaze Paresis) - 0(Normal) 3. Visual Field Loss - 0(No visual loss) 4. Facial Palsy - 0(Normal) 5a. Left Arm: Motor (10-second hold) - 0(No drift) 5b. Right Arm: Motor (10-second hold) - 0(No drift) 6a. Left Leg: Motor (5-second hold - always test supine) - 0(No drift) 6b. Right Leg: Motor (5-second hold - always test supine) - 0(No drift) 7. Limb Ataxia (finger/nose \\T\\ heel/izaguirre - test with eyes open) - 0(Absent) 8. Sensory Loss (pinprick arms/legs/face) - 0(Normal) 9. Best Language: Aphasia (description/naming/reading) - 0(No aphasia) 10. Dysarthria (speech clarity - read or repeat words) - 0(Normal) 11. Extinction and Inattention (visual/tactile/auditory/spatial/personal) - 0(No abnormality) Initials: [facility] NIH Stroke Scale - NIH Stroke Score Date: 02/05/2022 Time: 12:00 Total Score = 2 1a. Level of Consciousness (LOC) - 0(Alert) 1b. Level of Consciousness (LOC) (Month \\T\\ Age) - 2(Neither) 1c. LOC Commands (Open \\T\\ Closes Eyes/Longitudinal Float Operator) - 0(Both) 2. Best Gaze (Lateral Gaze Paresis) - 0(Normal) 3. Visual Field Loss - 0(No visual loss) 4. Facial Palsy - 0(Normal) 5a. Left Arm: Motor (10-second hold) - 0(No drift) 5b. Right Arm: Motor (10-second hold) - 0(No drift) 6a. Left Leg: Motor (5-second hold - always test supine) - 0(No drift) 6b. Right Leg: Motor (5-second hold - always test supine) - 0(No drift) 7. Limb Ataxia (finger/nose \\T\\ heel/izaguirre - test with eyes open) - 0(Absent) 8. Sensory Loss (pinprick arms/legs/face) - 0(Normal) 9. Best Language: Aphasia (description/naming/reading) - 0(No aphasia) 10. Dysarthria (speech clarity - read or repeat words) - 0(Normal) 11. Extinction and Inattention (visual/tactile/auditory/spatial/personal) - 0(No abnormality) Initials: aa5 Signatures: Dispatcher [employer] EDPacheco Baca MD MD cha Nieto, Roman, MD MD rn Calderon, Audri, RN RN aa5 Sirisha Downey tw5 Corrections: (The following items were deleted from the chart) 06:59 06:50 Home rn rn 06:59 06:50 new rn rn 06:59 06:50 have improved rn rn 06:59 06:50 Stable rn rn 06:59 06:50 Subjective facial weakness rn rn 07:06 06:59 Aspirin 325 mg PO once ordered. rn rn 12:12 06:58 Urine Dipstick-Ancillary ordered. rn aa5 12:20 07:38 to neuro tele, dr jennifer vega aa5
[2022-02-05] MEDS ORDERED: ASPIRIN 81 MG CHEWABLE TABLET ONE (07:35)
[2022-02-05] MEDS ORDERED: FOLIC ACID 5 MG/ML VIAL ONE (07:36)
[2022-02-05 12:27] VITALS: BP 146/85; TEMP 97.8; O2SAT 97
--- NOTE | 2022-02-06 10:49 | RAD REPORT ---
EXAM DESCRIPTION: CT - Head angio - 02/05/2022 7:02 am ADDENDUM #1 THIS REPORT CONTAINS FINDINGS THAT MAY BE CRITICAL TO PATIENT CARE: The findings were verbally discus sed via telephone conference with Pk Ferreira MD on 02/05/2022 at 6:58 AM CDT. Electronically signed by: Saul Scales MD 02/05/2022 6:58 AM CDT End of Addendum EXAM DESCRIPTION: Head angio CLINICAL HISTORY: 86 years Female Neuro deficit, acute, stroke suspected TECHNIQUE: Following dynamic intravenous nonionic contrast infusion, multiple axial helical CT angio graphic images of the head with multiplanar reformation, 3D and MIP reconstructions were performed. All CT scans at this facility use dose modulation, iterative reconstruction, and/or weight based dos ing when appropriate to reduce radiation dose to as low as reasonably achievable. EXAM DESCRIPTION: None. FINDINGS: LEFT: Internal carotid artery: No stenosis or occlusion. Anterior cerebral arteries: No stenosis or occlusion. Middle cerebral arteries: No stenosis or occlusion. Posterior cerebral arteries: No stenosis or occlusion. RIGHT: Internal carotid artery: No stenosis or occlusion. Anterior cerebral arteries: No stenosis or occlusion. Middle cerebral arteries: No stenosis or occlusion. Posterior cerebral arteries: No stenosis or occlusion. Basilar artery: No stenosis or occlusion. Vertebral artery: V4 segments are unremarkable. Nonopacification of the left V3 vertebral artery cerv ical segment. Variant anatomy: Azygous A2 segment. Hypoplastic left A1 and bilateral P1 segments. bilateral p osterior cerebral arteries. Other: No aneurysm or vascular malformation. IMPRESSION: 1. No intracranial large vessel occlusion. 2. 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 Electronically signed by: Saul Scales MD 02/05/2022 6:53 AM CDT Due to temporary technical issues with the PACS/Fluency reporting system, reports are being signed by the in house radiologists without review as a courtesy to insure prompt reporting. The interpreting radiologist is fully responsible for the content of the report.
--- NOTE | 2022-02-06 13:43 | RAD REPORT ---
EXAM DESCRIPTION: RAD - Chest Single View - 02/05/2022 3:54 am CLINICAL HISTORY: 86 years Female, possible CVA COMPARISON: Chest x-ray report from 10/30/2021. The image was not available for review TECHNIQUE: Single portable x-ray view of the chest performed on 02/05/2022 at 3:50 AM FINDINGS: The lungs are hypoinflated. There are mild diffuse bilateral interstitial opacities which are nonspecific and may be related to chronic fibrosis, atelectasis, edema or inflammatory changes. T he lateral costophrenic sulci are clear. No focal airspace consolidation is identified. There is no e vidence of a pneumothorax. The cardiac silhouette is normal in size and configuration. There are remote postsurgical changes of the mediastinum. The mediastinal contours are normal. No acute osseous abnormality is identified. There are degenerative changes of the shoulders. No acute soft tissue abnormalities are seen. Lines and tubes: None. Free air: None IMPRESSION: Mild diffuse bilateral interstitial opacities which are nonspecific and may be related t o chronic fibrosis, atelectasis, edema or inflammatory changes. Electronically signed by: Lita Machado DO 02/05/2022 4:46 AM CDT Due to temporary technical issues with the PACS/Fluency reporting system, reports are being signed by the in house radiologists without review as a courtesy to insure prompt reporting. The interpreting radiologist is fully responsible for the content of the report.
--- NOTE | 2022-02-06 15:19 | RAD REPORT ---
EXAM DESCRIPTION: CT - Ct Stroke Brain Wo Cont - 02/05/2022 6:50 am CLINICAL HISTORY: 86 years Female Neuro deficit, acute, stroke suspected, crooked mouth, dementia TECHNIQUE: Multiple axial CT images of the brain were performed followed by sagittal and coronal rec onstructed images. The CT study is performed according to ALARA (as low as reasonably achievable) or ALARA/IMAGE GENTLY, with automatic adjustment of mA and/or kV according to patient size. Performed on: 02/05/2022 at 4:08 AM COMPARISON: 09/25/2021. FINDINGS: Brain: There is no evidence of mass, acute mass effect or midline shift. There are no acut e extra-axial fluid collections. There is no evidence of acute intracranial hemorrhage. The cerebra l sulci and ventricles are prominent consistent with moderate cerebral volume loss. There are scatter ed areas of decreased attenuation within the subcortical and periventricular white matter most consis tent with chronic moderate microangiopathy. There is an old left thalamic lacunar infarct. There is l ikely an old medial left cerebellar infarct. There is no evidence of a hyperdense MCA. Paranasal Sinuses and Mastoids: There is no significant mucosal thickening of the paranasal sinuses. The mastoid air cells are clear. Orbits: The orbital contents are grossly unremarkable. Bones: No acute osseous abnormalities are identified. Soft Tissues: No focal soft tissue abnormalities are identified. IMPRESSION: 1. There is no evidence of acute intracranial pathology. 2. Moderate cerebral volume loss with findings most consistent with chronic microangiopathy. 3. Old left thalamic lacunar infarct. 4. 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 These findings were discussed with Dr. Ferreira on 02/05/2022 at 4:42 AM central time. Electronically signed by: Lita Machado DO 02/05/2022 4:42 AM CDT Due to temporary technical issues with the PACS/Fluency reporting system, reports are being signed by the in house radiologists without review as a courtesy to insure prompt reporting. The interpreting radiologist is fully responsible for the content of the report.
== END 2022-02-05 12:20 | disposition short-term general hospital (02) ==
LOC: ER 03:28
DX: I63.9 Cerebral infarction, unspecified (principal); I10 Essential (primary) hypertension; R29.702 NIHSS score 2; E03.9 Hypothyroidism, unspecified; F03.90 Unspecified dementia, unspecified severity, without behavioral disturbance, psychotic disturbance, mood disturbance, and anxiety; J44.9 Chronic obstructive pulmonary disease, unspecified; Z79.82 Long term (current) use of aspirin; Z88.1 Allergy status to other antibiotic agents; Z88.7 Allergy status to serum and vaccine; Z20.822 Contact with and (suspected) exposure to COVID-19
CPT/HCPCS: 93005; 85025; 80048; 36415; 85610; 82947; 85730; 70496; 70450; 71045; 96374; 99285; U0003; Q9967

== ENCOUNTER 2023-09-05 16:54 | Inpatient (IN) | payer OTHER ==
--- OUTSIDE RECORDS SUMMARY | 2023-09-05 17:18 | XMS REPORT | Continuity of Care Document ---
:[address] [facility] t Address [address] [facility] [address] [place] [address] Care Team Providers Name Role Phone MCCRAYDASHAWNSABRINA Primary Care Physician Unavailable [id number] Attending Clinician Unavailable CAROL MORRIS Attending Clinician Unavailable KIET MARTINEZ Attending Clinician Unavailable DELMA BOOKER Attending Clinician Unavailable DARELL_Charles Attending Clinician Unavailable GUIDO FLANNERY Attending Clinician Unavailable MALACHI PRATT Attending Clinician Unavailable SHERICE ABREU Attending Clinician Unavailable CAPRI PRIETO Attending Clinician Unavailable FITZ CERDA NATASHA Attending Clinician Unavailable [id number] Admitting Clinician Unavailable MARLYS ULRICH Admitting Clinician Unavailable CLAY_Chester-Charly Admitting Clinician Unavailable GUIDO FLANNERY Admitting Clinician Unavailable JCARLOS HENDRICKS Admitting Clinician Unavailable CAPRI PRIETO Admitting Clinician Unavailable FITZ CERDA NATASHA Admitting Clinician Unavailable Payers Payer Name Policy Type Policy Number Effective Date Expiration Date S edmund [facility] [id number] MEDICARE A B [id number] 1999 00:00:00 CIGNA INDEMNITY [id number] 2021 00:00:00 [facility] STAR [id number] 2022 PLAN 00:00:00 MEDICARE PART A \T\ [id number] 1999 B 00:00:00 [place] [id number] 2013 GENERAL 00:00:00 [place]IC[place] B-[place]: [id number] 1999 NOVReturbo 00:00:00 FORMERLY [facility] - [id number] 2001 [facility] 00:00:00 (INDEMNITY) Problems Condition Condition Condition Status Onset Resolution Last Treating Co mments Source Name Details Category Date Date Treatment Clinician Date 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 00:00: Me dical 00 [place] Headache Headache Disease [facility] Allergies, Adverse Reactions, Alerts Allergy Allergy Status Severity Reaction(s) Onset Inactive Treating Comm ents Source Name Type Date Date Clinician NITROFUR Allergy Active [facility] ANTOIN 4-17 [facility] MONOHYD/ 00:00: Medical M-CRYST 00 [place] Nitrofur Propensi Active [facility] antoin ty to 4-17 [facility] Monohyd/ adverse 00:00: Medical M-Cryst reaction 00 [place] s TETANUS DRUG Active Hives [facility] TOXOID 6-12 ity of 00:00: [address] [place] nitrofur [place] Active [place] [facility] antoin 4-22 Clear 00:00: [facility] tetanus DA Active [place] [facility] toxoid, 4-22 Clear adsorbed 00:00: [facility] 00 [facility] TETANUS Allergy Active High Hives [facility] VACCINES 4-22 [facility] AND 00:00: Medical TOXOID 00 [place] Tetanus Drug Active Hives, Other [facility] Vaccines Allergy (See 4-22 [facility] And Comments) 00:00: Medical Toxoid 00 [place] Social History Social Habit Start Date Stop Date Quantity Comments Source Sexual orientation [facility] Sex Assigned At [address] [facility] Medications Ordered Filled Start Stop Current Ordering Indication Dosage Frequency Signature Comments Components Source Medication Medication Date Date Medication? Clinician (SIG) Name Name aspirin 81 Yes 81mg QD Take [address] MG EC 4-19 by mouth [facility] tablet 14:34: daily. Medical Center levothyroxi 2022-0 Yes 125ug Take [address] ne 4-19 mcg by [facility] (SYNTHROID, 14:34: mouth Medic al LEVOTHROID) 29 Every Center 125 MCG morning on tablet an empty stomach. losartan Yes 50mg QD Take [address] (COZAAR) 50 4-19 by mouth Luke s MG tablet 14:34: daily. Medica l 29 Center mirabegron Yes QD Take by [facility] (MYRBETRIQ) 4-19 mouth [facility] 50 mg Tb24 14:34: daily. Medic al ER tablet 29 Center memantine Yes 10mg Q.5D Take [address] (NAMENDA) 4-19 by mouth 2 Luke s 10 MG 14:34: (two) Medical tablet 29 times Center daily. omeprazole Yes 20mg QD Take [address] (PriLOSEC) 4-19 by mouth [facility] 20 MG 14:34: daily. Medical capsule 29 Center simvastatin Yes 10mg QD Take [address] (ZOCOR) 10 4-19 by mouth [facility] MG tablet 14:34: nightly. Medi axel 29 Center traMADoL Yes 50mg Take [address] (ULTRAM) 50 4-19 by mouth Luke s mg tablet 14:34: every 6 Medic al 29 (six) Center hours as needed for Pain. Procedures This patient has no known procedures. Plan of Care Planned Activity Planned Date Details Comments Source Future Scheduled 2023-06-22 Influenza Vaccine (#1) [facility] Test 00:00:00 [code = Influenza Medical Ce nter Vaccine (#1)] Future Scheduled 2022-10-[address] [facility] Test 00:00:00 (12+) [code = Medical Center DEPRESSION SCREENING (12+)] Future Scheduled 2022-10-22 FALLS RISK SCREENING [facility] Test 00:00:00 [code = FALLS RISK Medical C enter SCREENING] Future Scheduled 2021-03-03 COVID-19 VACCINE (3 - [facility] Test 00:00:00 Pfizer series) [code = Medic al Center COVID-19 VACCINE (3 - Pfizer series)] Future Scheduled 2000-08-[address] [facility] Test 00:00:00 WELLNESS (YEAR 2 or Medical Center FIRST YEAR if no IPPE) [code = MEDICARE ANNUAL WELLNESS (YEAR 2 or FIRST YEAR if no IPPE)] Future Scheduled 1999 PNEUMOCOCCAL 65+ YRS [facility] Test 00:00:00 (1 - PCV) [code = Medical Ce nter PNEUMOCOCCAL 65+ YRS (1 - PCV)] Future Scheduled 1984 SHINGLES VACCINES ([address] [facility] Test 00:00:00 of 2) [code = SHINGLES Medic al Center VACCINES (1 of 2)] Future Scheduled 1953 DTAP/TDAP/TD VACCINES [facility] Test 00:00:00 (1 - Tdap) [code = Medical C enter DTAP/TDAP/TD VACCINES (1 - Tdap)] Future Scheduled [address] [facility] Test 00:00:00 Counseling and Medical Cente r Screening (12+) [code = Tobacco Cessation Counseling and Screening (12+)] Encounters Start End Encounter Admission Attending Care Care Encounter Source Date/Time Date/Time Type Type Clinicians Facility Department ID 2021-11-17 Outpatient [id number] [facility] RE[facility] [id number] [facility] 11:26:36 [facility] [place] 2022-02-05 2022-02-07 Inpatient ER CAROL MORRIS [facility] Neurology [id number] [facility] 13:19:00 13:30:00 2021-04-06 2021-04-06 Outpatient DELMA FOWLER [facility] [id number] [facility] 10:00:00 10:00:00 [facility] 2021-03-04 2021-03-04 Outpatient GC_SWHAWPRC PRIV PRIV [id number] [facility] 12:43:00 12:43:00 _Juan [id number] [facility] 2021-01-20 2021-01-20 Emergency X ALMA DELIA, [facility] ERT [id number] [facility] 11:01:00 15:26:00 GUIDO [facility] 2021-01-06 2021-01-06 Outpatient Samson PRATT [facility] [id number] [facility] 13:00:00 13:00:00 MALACHI [facility] 2020-12-16 2020-12-16 Outpatient Samson PRATT [facility] [id number] [facility] 15:20:00 15:20:00 MALACHI [facility] 2020-11-16 2020-11-17 Outpatient X SHERICE ABREU [facility] JAYRO [id number] [facility] 16:54:00 18:54:00 [facility] 2020-10-06 2020-10-06 Outpatient R DELMA BOOKER [facility] [id number] [facility] 10:00:00 10:00:00 [facility] 2020-04-19 2020-04-19 Outpatient R DELMA BOOKER [facility] [id number] [facility] 10:00:00 10:00:00 [facility] 2020-04-11 2020-04-12 Outpatient X IDA [facility] JAYRO [id number] [facility] 18:25:17 17:04:00 CAPRI [facility] 2019-09-10 2019-09-20 In[place] 3 [place] [id number] [facility] 19:05:00 11:25:00 FITZ [facility] [place] Results Test Description Test Time Test Comments Results Result [facility] e Comments MR, BRAIN, 2022-02-07 Unlisted Reason WITHOUT CONTRAST 07:17:00 for Exam - Click Yes and Enter [facility] Reason [facility] Below->Yes CENTERName: [facility], Unlisted Reason MU VOGELB: for 1935 Sex: Exam->Concerning F occlusion v dissection FINAL REPORT MR, MRA, BRAIN, WITH \T\ WITHOUT CONTRAST, MR, BRAIN, WITHOUT CONTRAST, MR, MRA, NECK, WITH \T\ WITHOUT IV CONTRAST INDICATION: Unlisted Reason for ExamRule out dissection TECHNIQUE: Multiplanar, multisequence MR images of the brain. 3-D time of flight MRA of the cranial and cervical circulation. 2-D time of flight MRA of the neck. 3D Stenosis evaluation utilized NASCET criteria. COMPARISON: Noncontrast brain CT of the same date FINDINGS: MRI BRAIN: Brain parenchyma is normal in morphology. Midline structures are normally developed. No restricted diffusion to suggest recent ischemic insult. No abnormal susceptibility. 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 Gliosis in the left cerebellar hemisphere and vermis. Mild to moderate generalized parenchymal volume loss is present.Confluent and scattered FLAIR hyperintensities in the periventricular white matter are incompletely characterized but favored to represent chronic small vessel ischemic changes. No hydrocephalus. Bilateral lens prostheses are present.No obstructive paranasal sinus disease. Mild T2 hyperintensity in the left mastoid air cells. Additional findings: None. MRA BRAIN:Internal carotid arteries: No significant stenosis.Middle cerebral arteries: No significant stenosis. Anterior cerebral arteries: Hypoplastic left A1 segment. A single A2 segment is noted, with bifurcation at the level of the A3 segment.Basilar system: No significant stenosis. Posterior cerebral arteries: No significant stenosis. Additional findings: None. MRA NECK:Common carotid arteries: Unremarkable. Bifurcations: Atherosclerotic plaque at the right carotid bifurcation with less than 50% atherosclerotic narrowing by NASCET criteria Cervical internal carotid arteries: No flow limiting stenosis.Vertebral arteries: The right vertebral artery is dominant. The left V3 segment is not well seen, due to technique IMPRESSION: 1.No acute ischemia or parenchymal hemorrhage.2.Gliosis in the left cerebellar hemisphere and vermis. 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 Signed: [facility] Verified Date/Time: 02/07/2022 07:17:18 Reading Location: [facility] C013V Neuro Reading Room , MRA, BRAIN, 2022-02-07 Dissection WITH 07:17:00 protocol Unlisted Reason [facility] for Exam - Click [facility] Yes and Enter CENTERName: [facility], Scottie DOBBINS : Below->Yes 1935 Sex: Unlisted Reason F for Exam->Rule out dissection FINAL REPORT MR, MRA, BRAIN, WITH \T\ WITHOUT CONTRAST, MR, BRAIN, WITHOUT CONTRAST, MR, MRA, NECK, WITH \T\ WITHOUT IV CONTRAST INDICATION: Unlisted Reason for ExamRule out dissection TECHNIQUE: Multiplanar, multisequence MR images of the brain. 3-D time of flight MRA of the cranial and cervical circulation. 2-D time of flight MRA of the neck. 3D Stenosis evaluation utilized NASCET criteria. COMPARISON: Noncontrast brain CT of the same date FINDINGS: MRI BRAIN: Brain parenchyma is normal in morphology. Midline structures are normally developed. No restricted diffusion to suggest recent ischemic insult. No abnormal susceptibility. 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 Gliosis in the left cerebellar hemisphere and vermis. Mild to moderate generalized parenchymal volume loss is present.Confluent and scattered FLAIR hyperintensities in the periventricular white matter are incompletely characterized but favored to represent chronic small vessel ischemic changes. No hydrocephalus. Bilateral lens prostheses are present.No obstructive paranasal sinus disease. Mild T2 hyperintensity in the left mastoid air cells. Additional findings: None. MRA BRAIN:Internal carotid arteries: No significant stenosis.Middle cerebral arteries: No significant stenosis. Anterior cerebral arteries: Hypoplastic left A1 segment. A single A2 segment is noted, with bifurcation at the level of the A3 segment.Basilar system: No significant stenosis. Posterior cerebral arteries: No significant stenosis. Additional findings: None. MRA NECK:Common carotid arteries: Unremarkable. Bifurcations: Atherosclerotic plaque at the right carotid bifurcation with less than 50% atherosclerotic narrowing by NASCET criteria Cervical internal carotid arteries: No flow limiting stenosis.Vertebral arteries: The right vertebral artery is dominant. The left V3 segment is not well seen, due to technique IMPRESSION: 1.No acute ischemia or parenchymal hemorrhage.2.Gliosis in the left cerebellar hemisphere and vermis. 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 Signed: Rocco Nagy MDReport Verified Date/Time: 02/07/2022 07:17:18 Reading Location: [address] Neuro Reading Room , MRA, NECK, 2022-02-07 Dissection WITH 07:17:00 protocol Unlisted Reason [facility] for Exam - Click [facility] Yes and Enter CENTERName: Scottie VILLAFUERTEITA : Below->Yes 1935 Sex: Unlisted Reason F for Exam->Rule out dissection FINAL REPORT MR, MRA, BRAIN, WITH \T\ WITHOUT CONTRAST, MR, BRAIN, WITHOUT CONTRAST, MR, MRA, NECK, WITH \T\ WITHOUT IV CONTRAST INDICATION: Unlisted Reason for ExamRule out dissection TECHNIQUE: Multiplanar, multisequence MR images of the brain. 3-D time of flight MRA of the cranial and cervical circulation. 2-D time of flight MRA of the neck. 3D Stenosis evaluation utilized NASCET criteria. COMPARISON: Noncontrast brain CT of the same date FINDINGS: MRI BRAIN: Brain parenchyma is normal in morphology. Midline structures are normally developed. No restricted diffusion to suggest recent ischemic insult. No abnormal susceptibility. 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 Gliosis in the left cerebellar hemisphere and vermis. Mild to moderate generalized parenchymal volume loss is present.Confluent and scattered FLAIR hyperintensities in the periventricular white matter are incompletely characterized but favored to represent chronic small vessel ischemic changes. No hydrocephalus. Bilateral lens prostheses are present.No obstructive paranasal sinus disease. Mild T2 hyperintensity in the left mastoid air cells. Additional findings: None. MRA BRAIN:Internal carotid arteries: No significant stenosis.Middle cerebral arteries: No significant stenosis. Anterior cerebral arteries: Hypoplastic left A1 segment. A single A2 segment is noted, with bifurcation at the level of the A3 segment.Basilar system: No significant stenosis. Posterior cerebral arteries: No significant stenosis. Additional findings: None. MRA NECK:Common carotid arteries: Unremarkable. Bifurcations: Atherosclerotic plaque at the right carotid bifurcation with less than 50% atherosclerotic narrowing by NASCET criteria Cervical internal carotid arteries: No flow limiting stenosis.Vertebral arteries: The right vertebral artery is dominant. The left V3 segment is not well seen, due to technique IMPRESSION: 1.No acute ischemia or parenchymal hemorrhage.2.Gliosis in the left cerebellar hemisphere and vermis. 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 Signed: Rocco Nagy MDReport Verified Date/Time: 02/07/2022 07:17:18 Reading Location: [address] Neuro Reading Room ESIUM 2022-02-06 04:57:00 Test Item Value Reference Range Interpretation Comme nts MAGNESIUM (BEAKER) (test code = 627) 2.0 mg/dL 1.6-2.6 Cut To Length Operator ID - TIFFANY [id number] 04:57:00 Test Item Value Reference Range Interpretation Comments PHOSPHORUS (BEAKER) (test code = 3.4 mg/dL 2.3-4.7 604) Cut To Length Operator ID - TIFFANY WBASIC METABOLIC [id number] 04:56:59 Test Item Value Reference Range Interpretation Comments SODIUM (BEAKER) 141 meq/L 136-145 (test code = 381) POTASSIUM (BEAKER) 3.9 meq/L 3.5-5.1 (test code = 379) CHLORIDE (BEAKER) 105 meq/L 98-107 (test code = 382) CO2 (BEAKER) (test 28 meq/L 22-29 code = 355) BLOOD UREA NITROGEN 19 mg/dL 7-21 (BEAKER) (test code = 354) CREATININE (BEAKER) 0.78 mg/dL 0.57-1.25 (test code = 358) GLUCOSE RANDOM 94 mg/dL 70-105 (BEAKER) (test code = 652) CALCIUM (BEAKER) 9.7 mg/dL 8.4-10.2 (test code = 697) EGFR (BEAKER) (test 70 mL/min/1.73 ESTIMA GONZALO GFR IS code = 1092) sq m NOT ACCURATE CREATININE CLEARANCE IN PREDICTING GLOMERULAR FILTRATION RATE . ESTIMATED GFR I S NOT APPLICABLE FOR DIALYSIS PATIEN TS. Cut To Length Operator ID Audrey ALLEN WPROTHROMBIN [id number] 04:41:35 Test Item Value Reference Range Interpretation Comments PROTIME (BEAKER) 14.3 seconds 11.9-14.2 H (test code = 759) INR (BEAKER) (test 1.13 See_Comment [Automat ed message] code = 370) The system [employer] generated this result transmitted ref erence range: <=5.90. The reference range was not used to int erpret this result as normal/abnormal . RECOMMENDED COUMADIN/WARFARIN INR THERAPY RANGESSTANDARD DOSE: 2.0 - 3.0 Includes: PROPHYLAXIS for venous thrombosis, systemic embolization; TREATMENT for venous thrombosis and/or pulmonary embolus.HIGH RISK: Target INR is 2.5-3.5 for patients with mechanical heart valves.CBC W/PLT COUNT & AUTO [id number] 04:33:03 Test Item Value Reference Range Interpretation Comments WHITE BLOOD CELL COUNT (BEAKER) 7.0 K/ L 3.5-10.5 (test code = 775) RED BLOOD CELL COUNT (BEAKER) 5.17 M/ L 3.93-5.22 (test code = 761) HEMOGLOBIN (BEAKER) (test code = 13.2 GM/DL 11.2-15.7 410) HEMATOCRIT (BEAKER) (test code = 43.9 % 34.1-44.9 411) MEAN CORPUSCULAR VOLUME (BEAKER) 84.9 fL 79.4-94.8 (test code = 753) MEAN CORPUSCULAR HEMOGLOBIN 25.5 pg 25.6-32.2 L (BEAKER) (test code = 751) MEAN CORPUSCULAR HEMOGLOBIN CONC 30.1 GM/DL 32.2-35.5 L (BEAKER) (test code = 752) RED CELL DISTRIBUTION WIDTH 17.8 % 11.7-14.4 H (BEAKER) (test code = 412) PLATELET COUNT (BEAKER) (test 141 K/CU MM 150-450 L code = 756) MEAN PLATELET VOLUME (BEAKER) 10.3 fL 9.4-12.3 (test code = 754) NUCLEATED RED BLOOD CELLS 0 /100 WBC 0-0 (BEAKER) (test code = 413) NEUTROPHILS RELATIVE PERCENT 49 % (BEAKER) (test code = 429) LYMPHOCYTES RELATIVE PERCENT 39 % (BEAKER) (test code = 430) MONOCYTES RELATIVE PERCENT 7 % (BEAKER) (test code = 431) EOSINOPHILS RELATIVE PERCENT 3 % (BEAKER) (test code = 432) BASOPHILS RELATIVE PERCENT 1 % (BEAKER) (test code = 437) NEUTROPHILS ABSOLUTE COUNT 3.44 K/ L 1.56-6.13 (BEAKER) (test code = 670) LYMPHOCYTES ABSOLUTE COUNT 2.75 K/ L 1.18-3.74 (BEAKER) (test code = 414) MONOCYTES ABSOLUTE COUNT (BEAKER) 0.50 K/ L 0.24-0.36 H (test code = 415) EOSINOPHILS ABSOLUTE COUNT 0.24 K/ L 0.04-0.36 (BEAKER) (test code = 416) BASOPHILS ABSOLUTE COUNT (BEAKER) 0.04 K/ L 0.01-0.08 (test code = 417) IMMATURE GRANULOCYTES-RELATIVE 0 % 0-1 PERCENT (BEAKER) (test code = 2801) HIGH SENSITIVITY TROPONIN [id number] 16:13:06 Test Item Value Reference Range Interpretation Comments HIGH SENSITIVITY 4 pg/ml See_Comment [Automated message] TROPONIN I (test code = The system which [id number]) generated this result transmitted ref erence range: <=17. Th e reference range was not used to interpr et this result as normal/abnormal . Cut To Length Operator ID - MARGIE GThe LOGISTICIAN STAT High Sensitivity Troponin-I results should be used in conjunction with other diagnostic information such as ECG, clinical observations and information, and patient symptoms to aid in the diagnosis of CT.COMPREHENSIVE METABOLIC [id number] 16:07:03 Test Item Value Reference Range Interpretation Comments TOTAL PROTEIN 7.3 gm/dL 6.0-8.3 (BEAKER) (test code = 770) ALBUMIN (BEAKER) 3.9 g/dL 3.5-5.0 (test code = 1145) ALKALINE PHOSPHATASE 91 U/L 40-150 (BEAKER) (test code = 346) BILIRUBIN TOTAL 0.5 mg/dL 0.2-1.2 (BEAKER) (test code = 377) SODIUM (BEAKER) (test 141 meq/L 136-145 code = 381) POTASSIUM (BEAKER) 3.8 meq/L 3.5-5.1 (test code = 379) CHLORIDE (BEAKER) 102 meq/L 98-107 (test code = 382) CO2 (BEAKER) (test 30 meq/L 22-29 H code = 355) BLOOD UREA NITROGEN 16 mg/dL 7-21 (BEAKER) (test code = 354) CREATININE (BEAKER) 0.75 mg/dL 0.57-1.25 (test code = 358) GLUCOSE RANDOM 96 mg/dL 70-105 (BEAKER) (test code = 652) CALCIUM (BEAKER) 9.4 mg/dL 8.4-10.2 (test code = 697) AST (SGOT) (BEAKER) 21 U/L 5-34 (test code = 353) ALT (SGPT) (BEAKER) 16 U/L 6-55 (test code = 347) EGFR (BEAKER) (test 73 mL/min/1.73 ESTIMA GONZALO GFR IS code = 1092) sq m NOT ACCURATE CREATININE CLEARANCE IN PREDICTING GLOMERULAR FILTRATION RATE . ESTIMATED GFR I S NOT APPLICABLE FOR DIALYSIS PATIEN TS. Cut To Length Operator ID - MARGIE GCBC W/PLT COUNT & AUTO [id number] 15:38:22 Test Item Value Reference Range Interpretation Comments WHITE BLOOD CELL COUNT (BEAKER) 6.8 K/ L 3.5-10.5 (test code = 775) RED BLOOD CELL COUNT (BEAKER) 5.27 M/ L 3.93-5.22 H (test code = 761) HEMOGLOBIN (BEAKER) (test code = 13.6 GM/DL 11.2-15.7 410) HEMATOCRIT (BEAKER) (test code = 45.3 % 34.1-44.9 H 411) MEAN CORPUSCULAR VOLUME (BEAKER) 86.0 fL 79.4-94.8 (test code = 753) MEAN CORPUSCULAR HEMOGLOBIN 25.8 pg 25.6-32.2 (BEAKER) (test code = 751) MEAN CORPUSCULAR HEMOGLOBIN CONC 30.0 GM/DL 32.2-35.5 L (BEAKER) (test code = 752) RED CELL DISTRIBUTION WIDTH 17.9 % 11.7-14.4 H (BEAKER) (test code = 412) PLATELET COUNT (BEAKER) (test 152 K/CU MM 150-450 code = 756) MEAN PLATELET VOLUME (BEAKER) 10.1 fL 9.4-12.3 (test code = 754) NUCLEATED RED BLOOD CELLS 0 /100 WBC 0-0 (BEAKER) (test code = 413) NEUTROPHILS RELATIVE PERCENT 57 % (BEAKER) (test code = 429) LYMPHOCYTES RELATIVE PERCENT 32 % (BEAKER) (test code = 430) MONOCYTES RELATIVE PERCENT 7 % (BEAKER) (test code = 431) EOSINOPHILS RELATIVE PERCENT 3 % (BEAKER) (test code = 432) BASOPHILS RELATIVE PERCENT 1 % (BEAKER) (test code = 437) NEUTROPHILS ABSOLUTE COUNT 3.87 K/ L 1.56-6.13 (BEAKER) (test code = 670) LYMPHOCYTES ABSOLUTE COUNT 2.13 K/ L 1.18-3.74 (BEAKER) (test code = 414) MONOCYTES ABSOLUTE COUNT (BEAKER) 0.45 K/ L 0.24-0.36 H (test code = 415) EOSINOPHILS ABSOLUTE COUNT 0.23 K/ L 0.04-0.36 (BEAKER) (test code = 416) BASOPHILS ABSOLUTE COUNT (BEAKER) 0.05 K/ L 0.01-0.08 (test code = 417) IMMATURE GRANULOCYTES-RELATIVE 0 % 0-1 PERCENT (BEAKER) (test code = 2801)
--- NOTE | 2023-09-05 17:34 | EKG ---
Test Date: 2023-09-05 Test Time: 17:19:52 System Development Engineer: DEEPA MEASUREMENT RESULTS: Intervals: Rate: 92 MO: 148 QRSD: 82 QT: 340 QTc: 420 [place]: P: 59 MO: 148 QRS: -12 T: 60 INTERPRETIVE STATEMENTS: Sinus rhythm with occasional premature ventricular complexes Possible Left atrial enlargement Borderline ECG Compared to ECG 02/05/2022 04:10:46 Ventricular premature complex(es) now present Sinus bradycardia no longer present ST (T wave) deviation no longer present Electronically Signed On 09-05-23 17:25:45 AQUATIC BIOLOGIST by Gilberto Mendoza
[2023-09-05] MEDS ORDERED: IBUPROFEN 400 MG TAB ONE (17:44)
[2023-09-05 17:50] LABS: Absolute Lymphocytes (CBC) 0.8 K/uL (0.7-4.9); Hematocrit 42.6 % (36.0-45.0); Lymphocytes % 11.1 % (15.3-44.8); MCV 96.1 fL (80-100); MPV 8.7 fL (7.6-11.3); Platelets 167 thou/uL (152-406); Protime INR 1.23; RBC Red Blood Cell Count 4.43 M/uL (3.86-4.86)
[2023-09-05 17:51] LABS: Potassium 3.5 mEq/L (3.5-5.1)
[2023-09-05 17:52] LABS: Albumin 2.6 g/dL (3.4-5.0); Bilirubin Total 0.4 mg/dL (0.2-1.0); Protein, Total 7.5 g/dL (6.4-8.2); Troponin High Sensitivity 26.9 pg/mL (<58.9)
[2023-09-05] MEDS ORDERED: NA CHLORIDE 0.9% 1,000 ML ONE (18:28)
--- NOTE | 2023-09-05 18:36 | RAD REPORT ---
EXAM DESCRIPTION: RAD - Chest Single View - 09/05/2023 5:29 pm CLINICAL HISTORY: Fever;Cough COMPARISON: Chest Single View dated 02/05/2022; Chest Single View dated 11/01/2021; Chest Single View dated 10/30/2021; Abdomen Pelvis Wo Contrast dated 04/17/2023 FINDINGS: Lines: None. Lungs: Bilateral irregular airspace disease. Pleural: No significant pleural effusions or pneumothorax. Cardiac: The heart size is within normal limits. Mediastinum: Within normal limits. Bones: No acute fractures. Degenerate changes of the shoulders. Sternotomy Other: None IMPRESSION: Faint irregular bilateral airspace disease. Much of this is likely chronic however a sup erimposed infectious or inflammatory process is difficult to exclude radiographically.
[2023-09-05 18:50] LABS: Blood O2 Saturation 83.2 % (92-98.5)
[2023-09-05 19:21] LABS: Specific Gravity 1.014 (1.005-1.030); Urine Bacteria 20-50 /HPF (<20); Urine Bilirubin NEGATIVE (Negative); Urine Blood Trace (Negative); Urine Clarity Extremely Turbid (Clear); Urine Color Yellow (Yellow); Urine Crystals Unidentified Few /HPF (None Seen); Urine Glucose NEGATIVE (Negative); Urine Mucus 1+ /HPF (None Seen); Urine Protein TRACE (Negative); Urine RBC 21-50 /HPF (None Seen); Urine Urobilinogen Normal (Normal); Urine WBC Clump Few /HPF (None Seen); Urine pH 5.5 (5.0-7.0)
[2023-09-05] MEDS ORDERED: dexAMETHasone 10 MG/ML VIAL ONE (19:33)
--- NOTE | 2023-09-05 19:45 | ER ---
Nurse's Notes [facility] caret Name: Angela Alston Age: 87 yrs Sex: Female : 1935 Arrival Date: 09/05/2023 Time: 16:54 Bed 5 Private MD: Diagnosis: Pneumonia due to SARS-associated coronavirus;Severe sepsis without septic shock;UTI/ Urinary tract infection, site not specified Presentation: 09/05 17:17 Acuity: KANDACE 2 iw 17:17 Initial Sepsis Screen: Does the patient meet any 2 criteria? RR > 20 per min. Temp iw <36.0*C (96.8*F)) or > 38.3*C (100.9*F). Altered Mental Status. HR > 90 bpm. Does the patient have a suspected source of infection? Yes: Productive cough/pneumonia If YES to both, name of provider notified: Pacheco ALVAREZ 17:34 Chief complaint: EMS states: were toned out for AMS, productive cough, tested positive iw for COVID today , symptoms started 2 days ago, NH gave tylenol at approx 1640. 17:36 Coronavirus screen: Client presents with at least one sign or symptom that may indicate iw coronavirus-19. Provider contacted for isolation considerations. Ebola Screen: Patient negative for fever greater than or equal to 101.5 degrees Fahrenheit, and additional compatible Ebola Virus Disease symptoms Patient denies exposure to infectious person. Patient denies travel to an Ebola-affected area in the 21 days before illness onset. No symptoms or risks identified at this time. Risk Assessment: Do you want to hurt yourself or someone else? Patient reports no desire to harm self or others. 17:36 Method Of Arrival: EMS: [facility] iw 22:01 Onset of symptoms was September 05, 2023. as6 Historical: - Allergies: 17:35 Macrobid; iw 17:35 Tetanus Vaccines \T\ Toxoid; iw - Home Meds: 19:14 Aricept 5 mg Oral tablet every day at bedtime [Active]; aspirin 81 mg Oral TbEC daily iw [Active]; bisacodyl 10 mg rectal suppository daily [Active]; buspirone 5 mg oral tablet 3 times per day [Active]; cranberry 450 mg oral tablet 2 times per day [Active]; famotidine 20 mg Oral tablet every day at bedtime [Active]; furosemide 40 mg Oral tablet daily [Active]; guaifenesin 600 mg Oral Tablet,Extended Release 12 hr 2 times per day [Active]; levothyroxine 125 mcg tablet daily [Active]; loratadine 10 mg oral tablet daily [Active]; losartan 100 mg oral tablet daily [Active]; morphine 20 mg/ml , give 0.5 mL by mouth every 1 hour as needed for pain, SOB Oral solution [Active]; Namenda 10 mg oral tablet 2 times per day [Active]; omeprazole 20 mg Oral Tablet,disintegrating,delayed release daily [Active]; potassium chloride 20 mEq Oral Packet daily [Active]; promethazine 25 mg Oral tablet 3 times per day [Active]; simvastatin 10 mg Oral tablet every day at bedtime [Active]; Zofran Oral 4 mg every 4 hours [Active]; - PMHx: 17:35 Hyperlipidemia; Chronic obstructive lung disease; Hypothyroidism; Dementia; depressive iw disorder; Hypertensive disorder; Transient cerebral ischemia; - Immunization history:: Adult Immunizations up to date. - Social history:: Smoking status: unknown. Screenin:39 [facility] ED Fall Risk Assessment (Adult) Altered Elimination Yes (1 pt). Abuse screen: iw Denies threats or abuse. Denies injuries from another. Nutritional screening: No deficits noted. Tuberculosis screening: No symptoms or risk factors identified. Assessment: 17:38 General: Appears uncomfortable, ill, Behavior is cooperative, drowsy. Neuro: Level of iw Consciousness is lethargic, Oriented to person, place, Moves all extremities. Cardiovascular: Rhythm is regular. Respiratory: Reports cough that is Airway is patent Respiratory effort is even, labored, Respiratory pattern is regular, Breath sounds with crackles bilaterally. GI: Abdomen is non-distended. Derm: Skin is fragile, is thin. 18:24 Reassessment: pt appears more confused than when she arrived, respirations labored, BP iw 92/72, fluids administered, RT at bedside to set up for BiPAP. 19:25 General: Appears ill. Respiratory: Breath sounds with crackles Breath sounds are as6 diminished bilaterally. 20:00 Reassessment: Patient and/or family updated on plan of care and expected duration. Pain ha1 level reassessed. 20:00 Respiratory: Airway is patent Respiratory effort is even, labored, Respiratory pattern ha1 is regular, Patient placed on BiPAP:. 21:00 Reassessment: Patient and/or family updated on plan of care and expected duration. Pain ha1 level reassessed. 21:00 Respiratory: Airway is patent Respiratory effort is even, labored, Respiratory pattern ha1 is regular. 22:00 Reassessment: Patient and/or family updated on plan of care and expected duration. Pain ha1 level reassessed. 22:08 Reassessment: attempted to give report. ha1 22:15 Reassessment: attempted to give report. ha1 Vital Signs: 17:17 BP 110 / 78; Pulse 92; Resp 24 S; Temp 101.5; Pulse Ox 95% on 2 lpm NC; Weight 83.91 kg iw (R); 18:24 BP 92 / 72; Pulse 102; Resp 26 S; Temp 98.9(O); Pulse Ox 95% on 2 lpm NC; iw 18:41 BP 94 / 69; Pulse 103; Resp 20; Pulse Ox 97% on BiPAP; iw 19:24 BP 139 / 102; Pulse 91; Resp 19 S; Temp 99.7(Ca); Pulse Ox 95% on BiPAP; as6 20:30 BP 121 / 62; Pulse 80; Resp 22 S; Pulse Ox 98% on BiPAP; ha1 21:30 BP 105 / 54; Pulse 81; Resp 21 S; Pulse Ox 99% on BiPAP; ha1 22:01 BP 105 / 54; Pulse 68; Resp 16 S; Temp 99.1(Ca); Pulse Ox 95% on BiPAP; as6 ED Course: 17:03 Patient arrived in ED. bd 17:03 Slim Louie MD is Attending Physician. rt 17:10 Pacheco Marquez PA is PHCP. cp 17:17 Liliana Alejandra, RN is Primary Nurse. iw 17:17 Triage completed. iw 17:18 Initial lab(s) drawn, by me, sent to lab. Inserted saline lock: 20 gauge in right hand, iw using aseptic technique. Blood collected. 17:31 Chest Single View XRAY In Process Unspecified. EDMS 17:36 Arm band placed on. iw 17:38 COVID-19 SARS RT PCR Sent. iw 17:38 Influenza Screen (a \T\ B) Sent. iw 18:15 Inserted saline lock: 20 gauge in left forearm, using aseptic technique. Blood iw collected. 18:31 Patient has correct armband on for positive identification. Bed in low position. Side iw rails up X2. Client placed on continuous cardiac and pulse oximetry monitoring. NIBP monitoring applied. environmental web crawler on. 18:59 Estrada cath inserted, using sterile technique, 18 Fr., returned cloudy urine. Patient iw tolerated well. 19:43 Percy Andino is Hospitalizing Provider. cp 20:33 CT Chest For PE Angio In Process Unspecified. EDMS 22:01 No provider procedures requiring assistance completed. Patient admitted, IV remains in as6 place. 23:19 Provided Education on: need for BiPad. ha1 Administered Medications: 17:39 Drug: DuoNeb Nebulize (2.5 mg - 0.5 mg) 3 ml Nebulizer once Route: Nebulizer; aa5 19:10 Follow up: Response: No adverse reaction iw 17:39 Drug: Ibuprofen PO 800 mg PO once Route: PO; aa5 19:10 Follow up: Response: No adverse reaction; Temperature is decreased iw 18:16 Not Given (Physician Discretion): ns 0.9% 500 ml IV at 75 ml/hr continuous cp 18:24 Drug: NS 0.9% IV 500 ml IV at bolus once Route: IV; Rate: bolus; Site: right hand; iw 18:34 Not Given (Physician Discretion): ns 0.9% 500 ml IV at 125 ml/hr continuous cp 18:40 Drug: NS 0.9% IV 500 ml IV at bolus once Route: IV; Rate: bolus; Site: right iw antecubital; 19:24 Drug: Dexamethasone IVP 10 mg IVP once; (not to exceed 40 mg) Route: IVP; Site: right as6 hand; 19:50 Drug: Rocephin IV 1 grams IV at calculated rate once; Given slow IV push per pharmacy ha1 instructions Route: IV; Rate: calculated rate; Site: right hand; 20:30 Follow up: Response: No adverse reaction; IV Status: Completed infusion; IV Intake: [id number] 21:00 Drug: Zithromax IVPB 500 mg IVPB once over 1 hrs; mix in 250 mL NS Route: IVPB; Infused ha1 Over: 1 hrs; Site: right hand; 23:18 Follow up: Response: No adverse reaction; IV Status: Completed infusion ha1 21:47 Drug: NS IV 0.45 % 1000 ml IV at 125 ml/hr continuous Route: IV; Rate: 125 ml/hr; Site: ha1 left forearm; 21:47 Drug: Albumin IVPB 25 grams 100 ml IVPB once; (Note: Albumin 25% concentration) Volume: ha1 100 ml; Route: IVPB; Site: left forearm; 23:18 Follow up: Response: No adverse reaction ha1 Medication: 17:39 VIS not applicable for this client. iw Intake: 20:30 IV: 50ml; Total: 50ml. ha1 Outcome: 19:45 Decision to Hospitalize by Provider. cp 22:01 Condition: stable as6 22:01 Instructed on the need for admit, 22:02 Admitted to Tele as6 23:20 Patient left the ED. ha1 Signatures: Dispatcher [employer] EDMS Carmela Martin Irene, RN RN iw Lashawn Lee RN RN aa5 Page, Corey, PA PA cp Slawson, Ashby, RN RN as6 Margarita Monsalve RN RN ha1 Slim Louie MD MD rt Corrections: (The following items were deleted from the chart) 17:37 17:34 Chief complaint: EMS states: were toned out for AMS, productive cough, tested iw positive for COVID today , symptoms started 2 days ago, NH gave tylenol at approx 1640 iw 17:37 17:36 Initial Sepsis Screen: Does the patient meet any 2 criteria? RR > 20 per min. iw Temp <36.0*C (96.8*F)) or > 38.3*C (100.9*F). Altered Mental Status. HR > 90 bpm. Does the patient have a suspected source of infection? Yes: Productive cough/pneumonia If YES to both, name of provider notified: Pacheco ALVAREZ iw 18:02 17:37 BP 110 / 78; Pulse 92bpm; Resp 24bpm; Spontaneous; Pulse Ox 95% 2 lpm Nasal iw Cannula; Temp 101.5F; iw 19:00 17:17 BP 110 / 78; Pulse 92bpm; Resp 24bpm; Spontaneous; Pulse Ox 95% 2 lpm Nasal iw Cannula; Temp 101.5F; iw 23:18 23:18 IV Status: Completed infusion ha1 ha1
--- NOTE | 2023-09-05 19:45 | EDPHYS ---
Physician Documentation [facility] Name: Angela Alston Age: 87 yrs Sex: Female : 1935 Arrival Date: 09/05/2023 Time: 16:54 Bed 5 Private MD: ED Physician Slim Louie HPI: 09/05 17:20 This 87 yrs old Female presents to ER via EMS with complaints of Productive Cough, cp Altered Mental Status. 17:20 The patient or guardian reports cough, sounds productive, difficulty breathing. cp 17:20 Onset: The symptoms/episode began/occurred 2 day(s) ago. cp 17:20 Severity of symptoms: in the emergency department the symptoms have improved, mildly. cp Associated signs and symptoms: Pertinent positives: fever, Pertinent negatives: chest pain, diarrhea, vomiting, abdominal pain. Patient brought to ED by EMS with reported cough, chest congestion, fever, difficulty breathing. EMS reports patient tested positive for COVID-19 today with symptoms times 2 days. Historical: - Allergies: 17:35 Macrobid; iw 17:35 Tetanus Vaccines \\T\\ Toxoid; iw - Home Meds: 19:14 Aricept 5 mg Oral tablet every day at bedtime [Active]; aspirin 81 mg Oral TbEC daily iw [Active]; bisacodyl 10 mg rectal suppository daily [Active]; buspirone 5 mg oral tablet 3 times per day [Active]; cranberry 450 mg oral tablet 2 times per day [Active]; famotidine 20 mg Oral tablet every day at bedtime [Active]; furosemide 40 mg Oral tablet daily [Active]; guaifenesin 600 mg Oral Tablet,Extended Release 12 hr 2 times per day [Active]; levothyroxine 125 mcg tablet daily [Active]; loratadine 10 mg oral tablet daily [Active]; losartan 100 mg oral tablet daily [Active]; morphine 20 mg/ml , give 0.5 mL by mouth every 1 hour as needed for pain, SOB Oral solution [Active]; Namenda 10 mg oral tablet 2 times per day [Active]; omeprazole 20 mg Oral Tablet,disintegrating,delayed release daily [Active]; potassium chloride 20 mEq Oral Packet daily [Active]; promethazine 25 mg Oral tablet 3 times per day [Active]; simvastatin 10 mg Oral tablet every day at bedtime [Active]; Zofran Oral 4 mg every 4 hours [Active]; - PMHx: 17:35 Hyperlipidemia; Chronic obstructive lung disease; Hypothyroidism; Dementia; depressive iw disorder; Hypertensive disorder; Transient cerebral ischemia; - Immunization history:: Adult Immunizations up to date. - Social history:: Smoking status: unknown. ROS: 17:25 Constitutional: Positive for fever, poor PO intake, cp 17:25 Eyes: Negative for injury, pain, redness, and discharge, cp 17:25 ENT: Negative for drainage from ear(s), ear pain, difficulty swallowing, difficulty handling secretions, 17:25 Cardiovascular: Negative for chest pain, edema, palpitations, 17:25 Respiratory: Positive for cough, "sounds productive", shortness of breath, at rest. 17:25 Abdomen/GI: Negative for abdominal pain, vomiting, diarrhea, constipation, 17:25 Skin: Negative for rash, 17:25 Neuro: Negative for altered mental status, 17:25 All other systems are negative, Exam: 17:25 ECG was reviewed by the Attending Physician. cp 17:30 Constitutional: The patient appears alert, awake, non-diaphoretic, well developed, well cp nourished, in obvious distress, moderately distressed, obviously ill, 17:30 Head/Face: Normocephalic, atraumatic. cp 17:30 Eyes: Periorbital structures: appear normal, Pupils: equal, round, and reactive to light and accomodation, Conjunctiva: normal, no exudate, no injection, Sclera: no appreciated abnormality, Lids and lashes: appear normal, bilaterally, 17:30 ENT: External ear(s): are unremarkable, Nose: is normal, Mouth: Lips: moist, Oral mucosa: moist, Posterior pharynx: Airway: no evidence of obstruction, patent, 17:30 Chest/axilla: Inspection: normal, Palpation: is normal, no crepitus, no tenderness, 17:30 Cardiovascular: Rate: normal, Rhythm: regular, Edema: is not appreciated, JVD: is not appreciated, 17:30 Respiratory: moderate respiratory distress is noted, Respirations: labored breathing, that is moderate, shallow respirations, that is moderate, Breath sounds: bronchial sounds, that are moderate, are heard diffusely, decreased breath sounds, that are mild, throughout, stridor, is not appreciated, + upper airway congestion. 17:30 Abdomen/GI: Inspection: abdomen appears normal, Palpation: abdomen is soft and non-tender, in all quadrants, 17:30 Skin: no rash present. 17:30 Neuro: Orientation: to person, place \\T\\ time. Mentation: able to follow commands, slow to respond, Vital Signs: 17:17 BP 110 / 78; Pulse 92; Resp 24 S; Temp 101.5; Pulse Ox 95% on 2 lpm NC; Weight 83.91 kg iw (R); 18:24 BP 92 / 72; Pulse 102; Resp 26 S; Temp 98.9(O); Pulse Ox 95% on 2 lpm NC; iw 18:41 BP 94 / 69; Pulse 103; Resp 20; Pulse Ox 97% on BiPAP; iw 19:24 BP 139 / 102; Pulse 91; Resp 19 S; Temp 99.7(Ca); Pulse Ox 95% on BiPAP; as6 20:30 BP 121 / 62; Pulse 80; Resp 22 S; Pulse Ox 98% on BiPAP; ha1 21:30 BP 105 / 54; Pulse 81; Resp 21 S; Pulse Ox 99% on BiPAP; ha1 22:01 BP 105 / 54; Pulse 68; Resp 16 S; Temp 99.1(Ca); Pulse Ox 95% on BiPAP; as6 MDM: 17:03 Patient medically screened. rt 19:45 Data reviewed: vital signs, nurses notes, lab test result(s), EKG, radiologic studies, cp plain films. 19:45 Differential Diagnosis: Bronchitis Influenza Pneumonia Other sepsis. Consideration of cp Admission/Observation Patient was admitted/placed on observation. Management of patient was discussed with the following: Hospitalist: Elda Loving NP will admit after discussion. I considered the following discharge prescriptions or medication management in the emergency department Medications were administered in the Emergency Department. See MAR. Care significantly affected by the following chronic conditions: Hypertension, Chronic Obstructive Pulmonary Disease. Counseling: I had a detailed discussion with the patient and/or guardian regarding the historical points, exam findings, and any diagnostic results supporting the discharge/admit diagnosis, lab results. Response to treatment: the patient's symptoms have mildly improved after treatment. 09/05 17:13 Order name: Blood Culture Adult (2) cp 09/05 17:13 Order name: CBC with Diff; Complete Time: 18:16 cp 09/05 18:16 Interpretation: Normal except: EVELINE% 74.5; LYM% 11.1; MN% 13.0. 09/05 17:13 Order name: CMP; Complete Time: 17:57 09/05 17:58 Interpretation: Normal except: GLUC 116; GFR 58; ALT 12; ALB 2.6; GLOB 4.9; A/G 0.5. 09/05 17:13 Order name: Lactate w/ 2H reflex if indic.; Complete Time: 17:57 09/05 18:51 Interpretation: Reviewed. 09/05 17:13 Order name: Protime (+inr); Complete Time: 17:57 09/05 17:58 Interpretation: Abnormal: PT 13.5. 09/05 17:13 Order name: Ptt, Activated; Complete Time: 17:57 09/05 17:13 Order name: Urinalysis w/ reflexes; Complete Time: 19:42 09/05 19:42 Interpretation: Normal except: [facility] Extremely Turbid; UBLD Trace; UPROT TRACE; UESTR cp 500; UWBC >50; URBC 21-50; UBACT 20-50; UWBC Clump Few; BYST Few. 09/05 17:13 Order name: Troponin High Sensitivity; Complete Time: 17:57 09/05 17:13 Order name: Influenza Screen (a \\T\\ B); Complete Time: 18:16 09/05 17:13 Order name: COVID-19 SARS RT PCR; Complete Time: 18:49 09/05 19:16 Interpretation: Reviewed. 09/05 18:17 Order name: ABG; Complete Time: 18:52 09/05 19:36 Order name: Urine Culture EDWA 09/05 17:13 Order name: Chest Single View XRAY; Complete Time: 18:49 09/05 19:17 Order name: CT Chest For PE Angio; Complete Time: 21:01 09/05 17:13 Order name: EKG; Complete Time: 17:14 09/05 17:13 Order name: Accucheck; Complete Time: 18:33 09/05 17:13 Order name: Cardiac monitoring; Complete Time: 17:25 09/05 17:13 Order name: EKG - Nurse/Tech; Complete Time: 17:25 09/05 17:13 Order name: IV Saline Lock - Large Bore; Complete Time: 17: cp 09/05 17:13 Order name: Labs collected and sent; Complete Time: 17: cp 09/05 17:13 Order name: O2 Per Protocol; Complete Time: 17: cp 09/05 17:13 Order name: O2 Sat Monitoring; Complete Time: 17: cp 09/05 17:13 Order name: Vital Signs; Complete Time: 17: cp 09/05 19:06 Order name: Estrada; Complete Time: 19:06 aa5 EC:25 Rate is 92 beats/min. Rhythm is regular. FL interval is normal. QRS interval is normal. cp QT interval is normal. Interpreted by me. Reviewed by me. Administered Medications: 17:39 Drug: DuoNeb Nebulize (2.5 mg - 0.5 mg) 3 ml Nebulizer once Route: Nebulizer; aa5 19:10 Follow up: Response: No adverse reaction iw 17:39 Drug: Ibuprofen PO 800 mg PO once Route: PO; aa5 19:10 Follow up: Response: No adverse reaction; Temperature is decreased iw 18:16 Not Given (Physician Discretion): ns 0.9% 500 ml IV at 75 ml/hr continuous cp 18:24 Drug: NS 0.9% IV 500 ml IV at bolus once Route: IV; Rate: bolus; Site: right hand; iw 18:34 Not Given (Physician Discretion): ns 0.9% 500 ml IV at 125 ml/hr continuous cp 18:40 Drug: NS 0.9% IV 500 ml IV at bolus once Route: IV; Rate: bolus; Site: right iw antecubital; 19:24 Drug: Dexamethasone IVP 10 mg IVP once; (not to exceed 40 mg) Route: IVP; Site: right as6 hand; 19:50 Drug: Rocephin IV 1 grams IV at calculated rate once; Given slow IV push per pharmacy ha1 instructions Route: IV; Rate: calculated rate; Site: right hand; 20:30 Follow up: Response: No adverse reaction; IV Status: Completed infusion; IV Intake: [id number] 21:00 Drug: Zithromax IVPB 500 mg IVPB once over 1 hrs; mix in 250 mL NS Route: IVPB; Infused ha1 Over: 1 hrs; Site: right hand; 23:18 Follow up: Response: No adverse reaction; IV Status: Completed infusion ha1 21:47 Drug: NS IV 0.45 % 1000 ml IV at 125 ml/hr continuous Route: IV; Rate: 125 ml/hr; Site: ha1 left forearm; 21:47 Drug: Albumin IVPB 25 grams 100 ml IVPB once; (Note: Albumin 25% concentration) Volume: ha1 100 ml; Route: IVPB; Site: left forearm; 23:18 Follow up: Response: No adverse reaction ha1 Disposition: 09/06 10:14 Co-signature as Attending Physician, Slim Louie MD I reviewed the patient's care rt provided by the Advanced Practice Provider and agree with the diagnosis and treatment plan. Disposition Summary: 09/05/23 19:45 Hospitalization Ordered Notes: Hospitalization Status: Inpatient Admission cp Provider: Percy Andino cp Location: Telemetry/MedSurg (Inpatient) cp Condition: Serious cp Problem: new cp Symptoms: have improved cp Bed/Room Type: Standard cp Room Assignment: 418(09/05/23 21:58) as6 Diagnosis - Pneumonia due to SARS-associated coronavirus cp - Severe sepsis without septic shock cp - UTI/ Urinary tract infection, site not specified cp Forms: - Medication Reconciliation Form cp - SBAR form cp - Leadership Thank You Letter cp Signatures: Dispatcher [employer] Liliana Evans RN RN iw Lashawn Lee RN RN aa5 Pacheco Marquez PA PA cp Slawson, Ashby, RN RN as6 Margarita Monsalve RN RN ha1 Nadia Loving PA-C PASudhir sb4 Slim Louie MD MD rt Laila Lobo rv1 Corrections: (The following items were deleted from the chart) 09/05 21:22 19:45 cp rv1 21:22 404 rv1 as6
--- NOTE | 2023-09-05 20:03 | P.HP ---
Certification for Inpatient Patient admitted to: Inpatient With expected LOS: >2 Midnights Patient will require the following post-hospital care: None Practitioner: I am a practitioner with admitting privileges, knowledge of patient current condition, hospital course, and medical plan of care. Services: Services provided to patient in accordance with Admission requirements found in Title 42 Section 412.3 of the Code of Federal Regulations Patient History Date of Service: 09/05/23 Reason for admission: COVID19 Respiratory Failure History of Present Illness: Ms. Alston is an 87-year-old female [facility] resident with past medical history of hypertension, hyperlipidemia, dementia, COPD who presented to the emergency department with altered mental status, cough, fever. residential states that she tested positive for COVID 2 days ago. She was tachypneic, tachycardic, and hypoxic upon arrival and placed on supplemental oxygen. She initially improved with O2 but later had to be placed on BiPAP. No significant lab abnormalities. Chest CTA was done which was negative for pulmonary embolism but showed "scattered groundglass opacities and bronchial wall thickening which could reflect a mild multifocal pneumonia. Coexisting mild interstitial edema may also be present." Her urine was positive for UTI. In the emergency department, she was given ibuprofen, DuoNeb, IV fluids, dexamethasone, Rocephin and azithromycin. We will admit for further management of acute respiratory failure secondary to COVID-19. Allergies nitrofurantoin [From Macrobid] Allergy (Verified 10/29/21 22:11) Hives/Rash Tetanus Vaccines and Toxoid Allergy (Verified 10/29/21 22:11) unknown Home medications list reviewed: Yes Home Medications: Acetaminophen [Tylenol] 650 mg PO Q6HP PRN 10/29/21 Aspirin [Aspirin EC 81 MG] 81 mg PO DAILY 10/29/21 Cranberry Fruit [Cranberry] 400 mg PO BID 10/29/21 Levothyroxine Sodium [Synthroid] 125 mcg PO 0600 10/29/21 Losartan Potassium [Cozaar] 50 mg PO DAILY 10/29/21 Memantine HCl [Namenda*] 10 mg PO BID 10/29/21 Mirabegron [Myrbetriq] 50 mg PO DAILY 10/29/21 Omeprazole 20 mg PO DAILY 10/29/21 Simvastatin 10 mg PO BEDTIME 10/29/21 Tramadol HCl [Ultram] 50 mg PO DAILYPRN PRN 10/29/21 levoFLOXacin [Levaquin*] 750 mg PO DAILY #7 tab 11/01/21 predniSONE [Deltasone*] 10 mg PO BID #8 tab 11/01/21 - Past Medical/Surgical History Diabetic: No -: Dementia -: Hypothyroidism -: Hypertension -: CAD -: COPD -: -: Bilateral knee replacements -: Back surgery Psychosocial/ Personal History: residential resident - Family History Mother -: Diabetes Brother -: Diabetes - Social History Smoking Status: Former smoker Alcohol use: No CD- Drugs: No Caffeine use: Yes Place of Residence: [facility] Physical Examination - Vital Signs Temperature: 99.7 F Blood Pressure: 105/54 Pulse: 74 Respirations: 21 Pulse Ox (%): 96 (bipap) - Studies Laboratory Data (last 24 hrs) 09/05/23 09/05/23 09/05/23 17:18 17:18 17:18 WBC 6.80 Hgb 13.8 Hct 42.6 Plt Count 167 PT 13.5 H INR 1.23 APTT 30.2 Sodium 138 Potassium 3.5 BUN 14 Creatinine 0.95 Glucose 116 H Total Bilirubin 0.4 AST 15 ALT 12 L Alkaline Phosphatase 100 Microbiology Data (last 24 hrs): 09/05/23 17:32 Nasopharnyx Influenza Type A Antigen Screen - Final 09/05/23 17:32 Nasopharnyx Influenza Type B Antigen Screen - Final Assessment and Plan - Problems (Diagnosis) (1) Acute hypoxic respiratory failure Current Visit: Yes Status: Acute (2) COVID-19 Current Visit: Yes Status: Acute (3) Sepsis Current Visit: Yes Status: Acute Qualifiers: Sepsis type: sepsis due to unspecified organism Sepsis acute organ dysfunction status: with acute organ dysfunction Severe sepsis acute organ dysfunction type: acute respiratory failure Acute respiratory failure type: with hypoxia Severe sepsis shock status: without septic shock Qualified Code(s): A41.9 - Sepsis, unspecified organism; R65.20 - Severe sepsis without septic shock; J96.01 - Acute respiratory failure with hypoxia (4) UTI (urinary tract infection) Current Visit: Yes Status: Acute Qualifiers: Urinary tract infection type: acute cystitis Hematuria presence: with hematuria Qualified Code(s): N30.01 - Acute cystitis with hematuria (5) COPD (chronic obstructive pulmonary disease) Current Visit: Yes Status: Chronic Qualifiers: COPD type: unspecified COPD Qualified Code(s): J44.9 - Chronic obstructive pulmonary disease, unspecified (6) Hypertension Current Visit: Yes Status: Chronic Qualifiers: Hypertension type: primary hypertension Qualified Code(s): I10 - Essential (primary) hypertension (7) Dementia Current Visit: Yes Status: Chronic Qualifiers: Dementia type: unspecified type Dementia severity: unspecified severity Dementia behavioral or psychological symptom: without behavioral, psychotic, or mood disturbance or anxiety Qualified Code(s): F03.90 - Unspecified dementia, unspecified severity, without behavioral disturbance, psychotic disturbance, mood disturbance, and anxiety - Plan Patient is admitted for further management of acute hypoxic respiratory failure multifocal pneumonia secondary to COVID-19. Currently required BiPAP, tolerating well, wean as tolerated. Continue IV Rocephin and azithromycin to cover pneumonia and UTI. Blood and ur ine cultures obtained in the emergency department. Scheduled nebs, steroids, and incentive spirometry. BP has been intermittently soft, continue IV fluids and albumin infusion. Lovenox for VTE prophylaxis. ED provider and I discussed at length with family about patient and her wishes moving forward. She was initially on hospice but was revoked. DNR in place. They are okay with BiPAP but do not want any further intervention, no intubation, no vasopressors, no CPR. Discharge Plan: [facility] Plan to discharge in: Greater than 2 days - Advance Directives Does patient have a Living Will: Yes Does patient have a Durable POA for Healthcare: Yes - Code Status/Comfort Care Code Status Assessed: Yes Code Status: Do Not Attempt Resuscitat Physician Review: Patient Assessed, Agree with Above Assessment and Plan Critical Care: No Time Spent Managing Pts Care (In Minutes): 50
--- NOTE | 2023-09-05 21:00 | RAD REPORT ---
EXAM DESCRIPTION: CT - Chest For Pe Angio - 09/05/2023 8:31 pm CLINICAL HISTORY: Cough;Fever;SOB COMPARISON: No comparisons TECHNIQUE: Dynamically enhanced axial 3 mm thick images of the chest were obtained during administra tion of <100> mL Isovue 370 IV contrast. Coronal and oblique reconstruction images were generated and reviewed. Exam utilizes a protocol for optimal evaluation of pulmonary arterial tree. Maximum intensity projections 3D imaging was utilized All CT scans are performed using dose optimization technique as appropriate and may include automated exposure control or mA/KV adjustment according to patient size. FINDINGS: Chest Wall: No suspicious thyroid nodules or pathologic lymphadenopathy. Lungs: Scattered ground-glass opacities bilaterally. Bilateral ground-glass thickening . Motion limit ed Pleura: No significant effusions or pneumothorax. Mediastinum/vitor: No pathologic lymphadenopathy. Pulmonary arteries/Aorta: No filling defect identified. No aortic aneurysm. Heart: No significant pericardial effusion. Normal heart size. Aortic valve prosthesis. Mitral annula r calcifications versus annuloplasty. Upper abdomen: No acute abnormality. Bones: No acute abnormality. Sternotomy IMPRESSION: Negative for pulmonary embolism. Scattered ground-glass opacities and bronchial wall thi ckening which could reflect a mild multifocal pneumonia. Coexisting mild interstitial edema may also be present.
[2023-09-05] MEDS ORDERED: CEFTRIAXONE 1000 MG/VIAL ONE (21:04)
[2023-09-05] MEDS ORDERED: NA CHLORIDE 0.9% 250 ML ONE (21:05)
[2023-09-05] MEDS ORDERED: NACHLORIDE 0.45% 1,000 ML IV ONE (21:49)
[2023-09-05] MEDS ORDERED: ALBUMIN HUMAN 25% 100 ML IV ONE (21:49)
[2023-09-06 00:10] VITALS: BMI 38.5
[2023-09-06] MEDS ORDERED: ONDANSETRON 4 MG/2 ML VIAL IV PRN (00:19)
[2023-09-06] MEDS ORDERED: ACETAMINOPHEN 500 MG TAB PO PRN (00:19)
[2023-09-06] MEDS: NA CHLORIDE 0.9% 1,000 ML IV SCH ×2 (00:19→08:44)
[2023-09-06] MEDS ORDERED: FAMOTIDINE 20 MG/2 ML VIAL IV SCH (00:19)
[2023-09-06] MEDS ORDERED: NIRMATRELVIR/RITONAVIR TABLET PO SCH ×2 (00:19→21:00)
[2023-09-06] MEDS: ALBUTEROL 2.5 MG/3 ML NEB SOL NEB SCH ×5 (00:19→20:00)
[2023-09-06] MEDS: IPRATROPIUM BROM 0.5MG/2.5ML NEB SCH ×5 (00:19→20:00)
[2023-09-06 04:17] LABS: Absolute Lymphocytes (CBC) 0.4 K/uL (0.7-4.9); Hematocrit 39.5 % (36.0-45.0); Lymphocytes % 6.9 % (15.3-44.8); MCV 96.9 fL (80-100); MPV 9.1 fL (7.6-11.3); Platelets 156 thou/uL (152-406); RBC Red Blood Cell Count 4.08 M/uL (3.86-4.86)
[2023-09-06 04:29] LABS: Magnesium 2.2 mg/dL (1.6-2.4); Phosphorus 3.7 mg/dL (2.5-4.9); Potassium 3.5 mEq/L (3.5-5.1)
[2023-09-06 05:13] LABS: Blood Morphology Comment NOT SEEN (NOT SEEN); Platelet Estimate ADEQ
[2023-09-06] MEDS: dexAMETHasone 10 MG/ML VIAL IV SCH (08:43)
[2023-09-06] MEDS: AZITHROMYCIN IV 500 MG in NA CHLORIDE 0.9% 250 ML IVPB SCH (08:43)
[2023-09-06] MEDS: CEFTRIAXONE 1,000 MG in NA CHLORIDE 0.9% 50 ML IVPB SCH (08:43)
[2023-09-06] MEDS: NIRMATRELVIR/RITONAVIR TABLET PO SCH ×2 (09:00→20:20)
[2023-09-06] MEDS ORDERED: POTASSIUM 25 MEQ EFFERV TAB PO ONE (09:00)
[2023-09-06] MEDS ORDERED: ENOXAPARIN 30 MG/0.3 ML SQ SCH (09:00)
[2023-09-06] MEDS ORDERED: IPRATROPIUM BROM 0.5MG/2.5ML ONE (09:02)
--- NOTE | 2023-09-06 11:51 | P.CNS ---
Date of Consult: 09/06/23 Reason for Consult: Coronavirus pneumonia respiratory failure Chief Complaint: COVID19 Respiratory Failure History of Present Illness: Patient is 87 years of age and [facility] resident out of hospital DNR COPD admitted with altered mental status cough and fever had positive for COVID 2 days ago was found to be hypoxic tachycardic currently on BiPAP doing well is not in any distress Allergies nitrofurantoin [From Macrobid] Allergy (Verified 10/29/21 22:11) Hives/Rash Tetanus Vaccines and Toxoid Allergy (Verified 10/29/21 22:11) unknown Home Medications: Acetaminophen [Tylenol] 650 mg PO BIDP PRN 10/29/21 Aspirin [Aspirin EC 81 MG] 81 mg PO DAILY 10/29/21 Cranberry Fruit [Cranberry] 450 mg PO BID 10/29/21 Levothyroxine Sodium [Synthroid] 125 mcg PO DAILY 10/29/21 Losartan Potassium [Cozaar] 100 mg PO DAILY 10/29/21 Memantine HCl [Namenda*] 10 mg PO BID 10/29/21 Omeprazole 20 mg PO BEDTIME 10/29/21 Simvastatin 10 mg PO BEDTIME 10/29/21 Acetaminophen [Tylenol*] 650 mg PO Q4HP PRN 09/06/23 Bisacodyl [Dulcolax*] 10 mg PO DAILYPRN PRN 09/06/23 Buspirone HCl [Buspar*] 5 mg PO TID 09/06/23 Carboxymethylcellulose Sodium [Artificial Tears] 2 gtt OPTH BID 09/06/23 Donepezil [Aricept*] 5 mg PO BEDTIME 09/06/23 Famotidine [Pepcid*] 20 mg PO BEDTIME 09/06/23 Furosemide [Lasix] 40 mg PO DAILY 09/06/23 Guaif/Dm [Robitussin Dm*] 10 ml PO Q6HP PRN 09/06/23 Hyoscyamine Sulfate [Levsin TAB*] 1 tab PO Q4HP PRN 09/06/23 Hyoscyamine Sulfate [Levsin TAB*] 2 tab PO Q4HP PRN 09/06/23 Ipratropium/Albuterol Sulfate [Iprat-Albut 0.5-3(2.5) mg/3 ml] 3 ml IH Q6HP PRN 09/06/23 Levothyroxine [Synthroid*] 125 mcg PO DAILY 09/06/23 Loperamide [Imodium*] 2 tab PO PRN MDD 8tabs 09/06/23 Loratadine [Claritin*] 10 mg PO DAILY 09/06/23 Melatonin 5 mg PO BEDTIME 09/06/23 Morphine Sulfate 0.5 ml PO Q1H PRN 09/06/23 Morphine Sulfate 1 ml PO Q1H PRN 09/06/23 Nirmatrelvir/Ritonavir [Paxlovid 150-100 mg Pack (Eua)] 2 tab PO BID 09/06/23 Ondansetron [Zofran (Odt)*] 4 mg PO Q4HP PRN 09/06/23 Potassium Oral Tab [Klor-Con 10 mEq Tab*] 20 meq PO DAILY 09/06/23 Promethazine HCl 25 mg PO Q4HP PRN 09/06/23 guaiFENesin [Guaifenesin ER] 600 mg PO Q12H 09/06/23 - Past Medical/Surgical History Diabetic: No -: Dementia -: Hypothyroidism -: Hypertension -: CAD -: COPD -: -: Bilateral knee replacements -: Back surgery Psychosocial/ Personal History: shelter resident - Family History Mother Medical History: Diabetes Brother Medical History: Diabetes - Social History Smoking Status: Unknown if ever smoked Alcohol use: No CD- Drugs: No Caffeine use: Yes Place of Residence: [facility] Review of Systems is unable to be obtained Physical Examination Temp Pulse Resp BP Pulse Ox 97.3 F 52 20 120/67 98 09/06/23 08:00 09/06/23 08:00 09/06/23 08:00 09/06/23 08:00 09/06/23 08:00 General: Alert, Cooperative Respiratory: Crackles/rales Cardiovascular: No edema (Bilateral), Regular rate/rhythm, Normal S1 S2 Gastrointestinal: Normal bowel sounds, Soft and benign Musculoskeletal: No clubbing Integumentary: No rashes, No significant lesion Laboratory Data (last 24 hrs) 09/05/23 09/05/23 09/05/23 17:18 17:18 17:18 WBC 6.80 Hgb 13.8 Hct 42.6 Plt Count 167 PT 13.5 H INR 1.23 APTT 30.2 Sodium 138 Potassium 3.5 BUN 14 Creatinine 0.95 Glucose 116 H Total Bilirubin 0.4 AST 15 ALT 12 L Alkaline Phosphatase 100 - Problems (1) Pneumonia due to coronavirus disease 2019 Current Visit: Yes Status: Acute Plan: Patient is 87 years of age admitted with acute respiratory failure secondary to presumed coronavirus pneumonia continue with steroids antibiotics changed to high flow Lovenox for DVT prophylaxis continue with steroid DC IV fluid continue with antiviral therapy
--- NOTE | 2023-09-06 17:11 | P.PN ---
Subjective Date of Service: 09/06/23 Chief Complaint: COVID19 Respiratory Failure Patient states she feels much better today. She was weaned off BiPAP last night and currently tolerating 4 L of oxygen by nasal cannula. She has tolerated diet. No recorded fever. Physical Examination - Vital Signs Temperature: 97.8 F Blood Pressure: 135/55 Pulse: 51 Respirations: 18 Pulse Ox (%): 97 - Physical Exam General: Alert, In no apparent distress, Oriented x3 HEENT: Mucous membr. moist/pink, Sclerae nonicteric Neck: JVD not distended Respiratory: Normal air movement, Other (Mild bibasilar Rales) Cardiovascular: No edema, Regular rate/rhythm, Normal S1 S2 Gastrointestinal: Normal bowel sounds, Soft and benign, Non-distended, No tenderness Musculoskeletal: No swelling, No tenderness Integumentary: No rashes, No cyanosis Neurological: Normal speech, Normal strength at 5/5 x4 extr - Studies Laboratory Data (last 24 hrs) 09/05/23 09/05/23 09/05/23 17:18 17:18 17:18 WBC 6.80 Hgb 13.8 Hct 42.6 Plt Count 167 PT 13.5 H INR 1.23 APTT 30.2 Sodium 138 Potassium 3.5 BUN 14 Creatinine 0.95 Glucose 116 H Total Bilirubin 0.4 AST 15 ALT 12 L Alkaline Phosphatase 100 Microbiology Data (last 24 hrs): 09/05/23 17:32 Nasopharnyx Influenza Type A Antigen Screen - Final 09/05/23 17:32 Nasopharnyx Influenza Type B Antigen Screen - Final Assessment And Plan - Current Problems (Diagnosis) (1) Acute respiratory failure with hypoxia Current Visit: Yes Status: Acute (2) Pneumonia due to coronavirus disease 2018 Current Visit: Yes Status: Acute (3) Sepsis Current Visit: Yes Status: Acute Qualifiers: Sepsis type: sepsis due to unspecified organism Sepsis acute organ dysfun ction status: with acute organ dysfunction Severe sepsis acute organ dysfunction type: acute respiratory failure Acute respiratory failure type: with hypoxia Severe sepsis shock status: without septic shock Qualified Code(s): A41.9 - Sepsis, unspecified organism; R65.20 - Severe sepsis without septic shock; J96.01 - Acute respiratory failure with hypoxia (4) UTI (urinary tract infection) Current Visit: Yes Status: Acute Qualifiers: Urinary tract infection type: acute cystitis Hematuria presence: with hematuria Qualified Code(s): N30.01 - Acute cystitis with hematuria (5) COPD (chronic obstructive pulmonary disease) Current Visit: Yes Status: Chronic Qualifiers: COPD type: unspecified COPD Qualified Code(s): J44.9 - Chronic obstructive pulmonary disease, unspecified (6) Dementia Current Visit: Yes Status: Chronic Qualifiers: Dementia type: unspecified type Dementia severity: unspecified severity Dementia behavioral or psychological symptom: without behavioral, psychotic, or mood disturbance or anxiety Qualified Code(s): F03.90 - Unspecified dementia, unspecified severity, without behavioral disturbance, psychotic disturbance, mood disturbance, and anxiety (7) Hypertension Current Visit: Yes Status: Chronic Qualifiers: Hypertension type: primary hypertension Qualified Code(s): I10 - Essential (primary) hypertension - Plan Acute respiratory failure with hypoxia Pneumonia secondary to COVID-19 COPD exacerbation Respiratory status improved Patient weaned off BiPAP and she is currently tolerating 4 L oxygen by nasal cannula Continue bronchodilators Steroid Continue IV antibiotics Pulmonary input appreciated Wean oxygen as tolerated. Sepsis/acute cystitis without hematuria Patient met criteria for sepsis on admission. Sepsis resolved. Antibiotics Follow urine culture and blood cultures. Essential hypertension Hold antihypertensives for now due to soft blood pressure. Dementia Patient was previously on hospice. Continue home dementia medications. DVT prophylaxis: Lovenox. CODE STATUS: DNR
[2023-09-06] MEDS ORDERED: GUAIFENESIN/DM 5 ML UCUP PO PRN (17:25)
[2023-09-06] MEDS ORDERED: GUAIFENESIN 600 MG SA TAB PO SCH (18:00)
[2023-09-06] MEDS: BUSPIRONE HCL 5 MG TABLET PO SCH (20:09)
[2023-09-06] MEDS: FAMOTIDINE 20 MG TAB PO SCH (20:10)
[2023-09-06] MEDS: ATORVASTATIN 10 MG TAB PO SCH (20:10)
[2023-09-06] MEDS: CRANBERRY FRUIT EXTRACT 200 MG CAP PO SCH (20:10)
[2023-09-06] MEDS: GUAIFENESIN 600 MG SA TAB PO SCH (20:10)
[2023-09-06] MEDS: MELATONIN 5 MG TABLET PO SCH (20:11)
[2023-09-06] MEDS: MEMANTINE HCL 10 MG TABLET PO SCH (20:11)
[2023-09-06] MEDS: PANTOPRAZOLE 40MG TABLET PO SCH (20:11)
[2023-09-06] MEDS: DONEPEZIL HCL 5 MG TAB PO SCH (20:11)
[2023-09-06] MEDS: POLYVINYL ALCOHOL 1.4% 15 ML OPTH SCH (20:20)
[2023-09-06] MEDS ORDERED: CRANBERRY FRUIT 400 MG PO SCH (21:00)
[2023-09-06] MEDS ORDERED: HOME MED 1 EA UNK (Omeprazole [Omeprazole] 20 MG Capsule.Dr) PO SCH (21:00)
[2023-09-06] MEDS ORDERED: HOME MED 1 EA UNK (Simvastatin [Simvastatin] 10 MG Tablet) PO SCH (21:00)
[2023-09-07] MEDS: IPRATROPIUM BROM 0.5MG/2.5ML NEB SCH ×4 (02:20→21:15)
[2023-09-07] MEDS: ALBUTEROL 2.5 MG/3 ML NEB SOL NEB SCH ×2 (02:20→08:00)
[2023-09-07] MEDS: LEVOTHYROXINE SOD 0.125 MG TAB PO SCH (06:48)
[2023-09-07 07:31] LABS: Absolute Lymphocytes (CBC) 0.7 K/uL (0.7-4.9); Hematocrit 40.1 % (36.0-45.0); Lymphocytes % 8.4 % (15.3-44.8); MCV 97.1 fL (80-100); MPV 9.3 fL (7.6-11.3); Platelets 162 thou/uL (152-406); RBC Red Blood Cell Count 4.13 M/uL (3.86-4.86)
[2023-09-07 07:54] LABS: Potassium 4.1 mEq/L (3.5-5.1)
[2023-09-07 08:35] LABS: Magnesium 2.4; Phosphorus 2.5 mg/dL (2.5-4.9)
[2023-09-07] MEDS: AZITHROMYCIN IV 500 MG in NA CHLORIDE 0.9% 250 ML IVPB SCH (08:50)
[2023-09-07] MEDS: CEFTRIAXONE 1,000 MG in NA CHLORIDE 0.9% 50 ML IVPB SCH (09:00)
[2023-09-07] MEDS: NIRMATRELVIR/RITONAVIR TABLET PO SCH ×2 (09:00→21:13)
[2023-09-07] MEDS: dexAMETHasone 10 MG/ML VIAL IV SCH (09:00)
[2023-09-07] MEDS: FUROSEMIDE 40 MG TABLET PO SCH (09:00)
[2023-09-07] MEDS: LOSARTAN POTASSIUM 50 MG TABLET PO SCH (09:00)
[2023-09-07] MEDS ORDERED: ALBUTEROL 2.5 MG/3 ML NEB SOL NEB PRN (10:40)
--- NOTE | 2023-09-07 10:40 | P.PN ---
Subjective Date of Service: 09/07/23 Chief Complaint: COVID19 Respiratory Failure Subjective: Improving (Patient is doing much better daughter at the bedside little shaky 2 L on nasal cannula oxygen) Review of Systems General: Weakness Respiratory: Shortness of Breath Physical Examination - Vital Signs Temperature: 97.3 F Blood Pressure: 97/52 Pulse: 75 Respirations: 20 Pulse Ox (%): 96 - Physical Exam General: Alert, Oriented x3 HEENT: Atraumatic Neck: Supple Respiratory: Crackles/rales Cardiovascular: No edema, Regular rate/rhythm Assessment And Plan - Current Problems (Diagnosis) (1) Pneumonia due to coronavirus disease 2019 Current Visit: Yes Status: Acute Plan: Patient is 87 years of age admitted with coronavirus pneumonia is doing much better changed to p.o. antibiotics continue with p.o. antiretroviral therapy 98% on 2 L patient does have a history of COPD has oxygen in group home stable for discharge Physician Review: Patient Assessed, Agree with Above Assessment and Plan
[2023-09-07] MEDS: CRANBERRY FRUIT EXTRACT 200 MG CAP PO SCH ×2 (10:49→21:09)
[2023-09-07] MEDS: GUAIFENESIN 600 MG SA TAB PO SCH ×2 (10:50→21:08)
[2023-09-07] MEDS: ASPIRIN EC 81 MG TAB PO SCH (10:50)
[2023-09-07] MEDS: ENOXAPARIN 30 MG/0.3 ML SQ SCH (10:50)
[2023-09-07] MEDS: BUSPIRONE HCL 5 MG TABLET PO SCH ×3 (10:50→21:08)
[2023-09-07] MEDS: POLYVINYL ALCOHOL 1.4% 15 ML OPTH SCH ×2 (10:50→21:13)
[2023-09-07] MEDS: MEMANTINE HCL 10 MG TABLET PO SCH ×2 (10:50→21:09)
--- NOTE | 2023-09-07 17:23 | P.PN ---
Subjective Date of Service: 09/07/23 Chief Complaint: COVID19 Respiratory Failure Patient states her shortness of breath is much better She is currently tolerating 2 L oxygen by nasal cannula She is tolerating diet and has no fever. Physical Examination - Vital Signs Temperature: 98.4 F Blood Pressure: 93/63 Pulse: 44 Respirations: 20 Pulse Ox (%): 96 Assessment And Plan - Current Problems (Diagnosis) (1) Acute respiratory failure with hypoxia Current Visit: Yes Status: Acute (2) Pneumonia due to coronavirus disease 2019 Current Visit: Yes Status: Acute (3) Sepsis Current Visit: Yes Status: Acute Qualifiers: Sepsis type: sepsis due to unspecified organism Sepsis acute organ dysfunction status: with acute organ dysfunction Severe sepsis acute organ dysfunction type: acute respiratory failure Acute respiratory failure type: with hypoxia Severe sepsis shock status: without septic shock Qualified Code(s): A41.9 - Sepsis, unspecified organism; R65.20 - Severe sepsis without septic shock; J96.01 - Acute respiratory failure with hypoxia (4) UTI (urinary tract infection) Current Visit: Yes Status: Acute Qualifiers: Urinary tract infection type: acute cystitis Hematuria presence: with hematuria Qualified Code(s): N30.01 - Acute cystitis with hematuria (5) COPD (chronic obstructive pulmonary disease) Current Visit: Yes Status: Chronic Qualifiers: COPD type: unspecified COPD Qualified Code(s): J44.9 - Chronic obstructive pulmonary disease, unspecified (6) Dementia Current Visit: Yes Status: Chronic Qualifiers: Dementia type: unspecified type Dementia severity: unspecified severity Dementia behavioral or psychological symptom: without behavioral, psychotic, or mood disturbance or anxiety Qualified Code(s): F03.90 - Unspecified dementia, unspecified severity, without behavioral disturbance, psychotic disturbance, mood disturbance, and anxiety (7) Hypertension Current Visit: Yes Status: Chronic Qualifiers: Hypertension type: primary hypertension Qualified Code(s): I10 - Essential (primary) hypertension - Plan Physical Exam General: Alert, In no apparent distress, Oriented x2 Neck: JVD not distended Respiratory: Normal air movement, Mild bibasilar Rales. Cardiovascular: No edema, Regular rate/rhythm, Normal S1 S2 Gastrointestinal: Normal bowel sounds, Soft and benign, Non-distended, No tenderness Musculoskeletal: No swelling, No tenderness Integumentary: No rashes, No cyanosis Neurological: Normal speech, Normal strength at 5/5 x4. Acute respiratory failure with hypoxia Pneumonia secondary to COVID-19 COPD exacerbation Respiratory status improved Patient weaned off BiPAP and she is currently tolerating 2 L oxygen by nasal cannula. Wean off oxygen as tolerated. Continue bronchodilators Steroid discontinued. Continue IV antibiotics Pulmonary input appreciated Wean oxygen as tolerated. Sepsis/acute cystitis without hematuria Patient met criteria for sepsis on admission. Sepsis resolved. Antibiotics Blood culture shows no growth. Urine culture growing gram-negative, organism ID and antibiotic sensitivities pending. Essential hypertension Noted borderline low blood pressure Hold antihypertensives for now due to soft blood pressure. Dementia Patient was previously on hospice. Continue home dementia medications. DVT prophylaxis: Lovenox. CODE STATUS: DNR
[2023-09-07] MEDS: DONEPEZIL HCL 5 MG TAB PO SCH (21:08)
[2023-09-07] MEDS: FAMOTIDINE 20 MG TAB PO SCH (21:08)
[2023-09-07] MEDS: MELATONIN 5 MG TABLET PO SCH (21:08)
[2023-09-07] MEDS: ATORVASTATIN 10 MG TAB PO SCH (21:08)
[2023-09-07] MEDS: PANTOPRAZOLE 40MG TABLET PO SCH (21:08)
[2023-09-08] MEDS: HYDRALAZINE HCL 20 MG/ML VIAL IV PRN ×2 (01:02→12:02)
[2023-09-08] MEDS: IPRATROPIUM BROM 0.5MG/2.5ML NEB SCH ×3 (02:18→13:40)
[2023-09-08] MEDS: LEVOTHYROXINE SOD 0.125 MG TAB PO SCH (05:40)
[2023-09-08 06:33] LABS: Absolute Lymphocytes (CBC) 0.8 K/uL (0.7-4.9); Hematocrit 44.3 % (36.0-45.0); Lymphocytes % 8.8 % (15.3-44.8); MCV 96.3 fL (80-100); MPV 8.9 fL (7.6-11.3); Platelets 181 thou/uL (152-406)
[2023-09-08 06:49] LABS: Magnesium 2.3 mg/dL (1.6-2.4); Phosphorus 2.6 mg/dL (2.5-4.9); Potassium 4.4 mEq/L (3.5-5.1)
[2023-09-08] MEDS: BUSPIRONE HCL 5 MG TABLET PO SCH ×2 (08:34→14:57)
[2023-09-08] MEDS: MEMANTINE HCL 10 MG TABLET PO SCH (08:34)
[2023-09-08] MEDS: ENOXAPARIN 30 MG/0.3 ML SQ SCH (08:34)
[2023-09-08] MEDS: ASPIRIN EC 81 MG TAB PO SCH (08:35)
[2023-09-08] MEDS: LOSARTAN POTASSIUM 50 MG TABLET PO SCH (08:35)
[2023-09-08] MEDS: NIRMATRELVIR/RITONAVIR TABLET PO SCH (08:35)
[2023-09-08] MEDS: CRANBERRY FRUIT EXTRACT 200 MG CAP PO SCH (08:35)
[2023-09-08] MEDS: POLYVINYL ALCOHOL 1.4% 15 ML OPTH SCH (08:35)
[2023-09-08] MEDS: FUROSEMIDE 40 MG TABLET PO SCH (08:36)
[2023-09-08] MEDS: GUAIFENESIN 600 MG SA TAB PO SCH (08:36)
[2023-09-08] MEDS ORDERED: dexAMETHasone 4 MG TAB PO SCH (09:00)
[2023-09-08 09:26] LABS: Blood Morphology Comment NOT SEEN (NOT SEEN); Platelet Estimate ADEQ; White Blood Cell Scan OK (OK)
[2023-09-08 10:44] VITALS: O2SAT 95
--- NOTE | 2023-09-08 12:50 | P.DS ---
Admission Date: 09/05/23 Discharge Date: 09/08/23 Disposition: TRANSFER TO DETENTION Discharge Condition: FAIR Reason for Admission: COVID19 Respiratory Failure - Problems (1) Acute respiratory failure with hypoxia Current Visit: Yes Status: Acute (2) Pneumonia due to coronavirus disease 2019 Current Visit: Yes Status: Acute (3) Sepsis Current Visit: Yes Status: Acute Qualifiers: Sepsis type: sepsis due to unspecified organism Sepsis acute organ dysfunction status: with acute organ dysfunction Severe sepsis acute organ dysfunction type: acute respiratory failure Acute respiratory failure type: with hypoxia Severe sepsis shock status: without septic shock Qualified Code(s): A41.9 - Sepsis, unspecified organism; R65.20 - Severe sepsis without septic shock; J96.01 - Acute respiratory failure with hypoxia (4) UTI (urinary tract infection) Current Visit: Yes Status: Acute Qualifiers: Urinary tract infection type: acute cystitis Hematuria presence: with hematuria Qualified Code(s): N30.01 - Acute cystitis with hematuria (5) COPD (chronic obstructive pulmonary disease) Current Visit: Yes Status: Chronic Qualifiers: COPD type: unspecified COPD Qualified Code(s): J44.9 - Chronic obstructive pulmonary disease, unspecified (6) Dementia Current Visit: Yes Status: Chronic Qualifiers: Dementia type: unspecified type Dementia severity: unspecified severity Dementia behavioral or psychological symptom: without behavioral, psychotic, or mood disturbance or anxiety Qualified Code(s): F03.90 - Unspecified dementia, unspecified severity, without behavioral disturbance, psychotic disturbance, mood disturbance, and anxiety (7) Hypertension Current Visit: Yes Status: Chronic Qualifiers: Hypertension type: primary hypertension Qualified Code(s): I10 - Essential (primary) hypertension Brief History of Present Illness: Ms. Alston is an 87-year-old female [facility] resident with past medical history of hypertension, hyperlipidemia, dementia, COPD who presented to the emergency department with altered mental status, cough, fever. detention stated that she tested positive for COVID 2 days prior. She was tachypneic, tachycardic, and hypoxic upon arrival and placed on supplemental oxygen. She initially improved with O2 but later had to be placed on BiPAP. No significant lab abnormalities. Chest CTA was done which was negative for pulmonary embolism but showed "scattered groundglass opacities and bronchial wall thickening which could reflect a mild multifocal pneumonia. Coexisting mild interstitial edema may also be present." Her urine was positive for UTI. In the emergency department, she was given ibuprofen, DuoNeb, IV fluids, dexamethasone, Rocephin and azithromycin. Patient was admitted for further management of acute respiratory failure secondary to COVID-19. Hospital Course: Acute respiratory failure with hypoxia Pneumonia secondary to COVID-19 COPD exacerbation Patient treated with steroid, antibiotics, bronchodilators She was started on Paxlovid in the [facility] which was continued during the hospital stay. Respiratory status improved Patient was initially on BiPAP and was weaned off to oxygen by nasal cannula. She is currently tolerating 2 L oxygen by nasal cannula. Pulmonary Dr. Marsh saw and evaluated patient and assisted with management. Patient respiratory status is stable. She is deemed stable for discharge. Sepsis/acute cystitis without hematuria Patient met criteria for sepsis on admission. Sepsis resolved. Antibiotics Blood culture shows no growth. Urine culture grew E. coli sensitive to third-generation cephalosporins. Patient discharged with oral cefpodoxime to complete 5 days of treatment for UTI. Essential hypertension Blood pressure was initially borderline low. This improved and patient became hypertensive. Home antihypertensives resumed during the hospital stay. Dementia Patient was previously on hospice. Continued home dementia medications. Vital Signs/Physical Exam: Temp Pulse Resp BP Pulse Ox 98.0 F 58 18 161/80 H 95 09/08/23 08:00 09/08/23 09:20 09/08/23 08:00 09/08/23 09:20 09/08/23 08:00 General: In no apparent distress, Oriented x2 HEENT: Mucous membr. moist/pink Neck: Supple, JVD not distended Respiratory: Clear to auscultation bilaterally, Normal air movement Cardiovascular: No edema, Regular rate/rhythm, Normal S1 S2 Gastrointestinal: Normal bowel sounds, Soft and benign, Non-distended Musculoskeletal: No swelling Integumentary: No rashes, No cyanosis Neurological: Normal strength at 5/5 x4 extr Laboratory Data at Discharge: WBC 9.20 thou/uL (4.3-10.9) 09/08/23 06:10 Hgb 14.6 g/dL (12.0-15.0) D 09/08/23 06:10 Hct 44.3 % (36.0-45.0) 09/08/23 06:10 Plt Count 181 thou/uL (152-406) 09/08/23 06:10 PT 13.5 SECONDS (9.5-12.5) H 09/05/23 17:18 INR 1.23 09/05/23 17:18 APTT 30.2 SECONDS (24.3-36.9) 09/05/23 17:18 Sodium 144 mEq/L (136-145) 09/08/23 06:10 Potassium 4.4 mEq/L (3.5-5.1) 09/08/23 06:10 BUN 24 mg/dL (7-18) H 09/08/23 06:10 Creatinine 0.88 mg/dL (0.55-1.02) 09/08/23 06:10 Glucose 126 mg/dL (74-106) H 09/08/23 06:10 Phosphorus 2.6 mg/dL (2.5-4.9) 09/08/23 06:10 Magnesium 2.3 mg/dL (1.6-2.4) 09/08/23 06:10 Total Bilirubin 0.4 mg/dL (0.2-1.0) 09/05/23 17:18 AST 15 U/L (15-37) 09/05/23 17:18 ALT 12 U/L (13-56) L 09/05/23 17:18 Alkaline Phosphatase 100 U/L (45-117) 09/05/23 17:18 Home Medications: Aspirin [Aspirin EC 81 MG] 81 mg PO DAILY 10/29/21 Cranberry Fruit [Cranberry] 450 mg PO BID 10/29/21 Levothyroxine Sodium [Synthroid] 125 mcg PO DAILY 10/29/21 Losartan Potassium [Cozaar] 100 mg PO DAILY 10/29/21 Memantine HCl [Namenda*] 10 mg PO BID 10/29/21 Omeprazole 20 mg PO BEDTIME 10/29/21 Simvastatin 10 mg PO BEDTIME 10/29/21 Acetaminophen [Tylenol*] 650 mg PO Q4HP PRN 09/06/23 Bisacodyl [Dulcolax*] 10 mg PO DAILYPRN PRN 09/06/23 Buspirone HCl [Buspar*] 5 mg PO TID 09/06/23 Carboxymethylcellulose Sodium [Artificial Tears] 2 gtt OPTH BID 09/06/23 Donepezil [Aricept*] 5 mg PO BEDTIME 09/06/23 Famotidine [Pepcid*] 20 mg PO BEDTIME 09/06/23 Furosemide [Lasix*] 40 mg PO DAILY 09/06/23 Guaif/Dm [Robitussin Dm*] 10 ml PO Q6HP PRN 09/06/23 Hyoscyamine Sulfate [Levsin TAB*] 1 tab PO Q4HP PRN 09/06/23 Ipratropium/Albuterol Sulfate [Iprat-Albut 0.5-3(2.5) mg/3 ml] 3 ml IH Q6HP PRN 09/06/23 Levothyroxine [Synthroid*] 125 mcg PO DAILY 09/06/23 Loperamide [Imodium*] 2 tab PO PRN MDD 8tabs 09/06/23 Loratadine [Claritin*] 10 mg PO DAILY 09/06/23 Melatonin 5 mg PO BEDTIME 09/06/23 Morphine Sulfate 0.5 ml PO Q1H PRN 09/06/23 Morphine Sulfate 1 ml PO Q1H PRN 09/06/23 Ondansetron [Zofran (Odt)*] 4 mg PO Q4HP PRN 09/06/23 Promethazine HCl 25 mg PO Q4HP PRN 09/06/23 guaiFENesin [Guaifenesin ER] 600 mg PO Q12H 09/06/23 Cefpodoxime Proxetil 100 mg PO BID #6 tab 09/08/23 Nirmatrelvir/Ritonavir [Paxlovid 150-100 mg Pack (Eua)] 2 tab PO BID #12 tab 09/08/23 dexAMETHasone [Decadron*] 4 mg PO DAILY #5 tab 09/08/23 New Medications: Cefpodoxime Proxetil 100 mg PO BID #6 tab Diet: AHA Activity: Fall precautions Time spent managing pt's care (in minutes): 36
[2023-09-08 19:22] VITALS: BP 132/69; TEMP 98
== END 2023-09-08 19:30 | DRG 871 ==
LOC: ER 16:54 → 4TH 19:55
PROVIDERS: ADMIT Internal Medicine; ATTEND Internal Medicine
PROC: 5A09457 Assistance with Respiratory Ventilation, 24-96 Consecutive Hours, Continuous Positive Airway Pressure (ICD-10-PCS; principal; 2023-09-06)
DX: A41.89 Other specified sepsis (principal); J12.82 Pneumonia due to coronavirus disease 2019; U07.1 COVID-19; J96.01 Acute respiratory failure with hypoxia; N30.01 Acute cystitis with hematuria; J44.1 Chronic obstructive pulmonary disease with (acute) exacerbation; J44.0 Chronic obstructive pulmonary disease with (acute) lower respiratory infection; R65.20 Severe sepsis without septic shock; I10 Essential (primary) hypertension; E03.9 Hypothyroidism, unspecified; E78.5 Hyperlipidemia, unspecified; F03.90 Unspecified dementia, unspecified severity, without behavioral disturbance, psychotic disturbance, mood disturbance, and anxiety; Z66 Do not resuscitate; Z88.1 Allergy status to other antibiotic agents; Z88.7 Allergy status to serum and vaccine; Z79.82 Long term (current) use of aspirin; Z79.52 Long term (current) use of systemic steroids; Z79.890 Hormone replacement therapy; Z79.899 Other long term (current) drug therapy; Z96.653 Presence of artificial knee joint, bilateral; Z87.891 Personal history of nicotine dependence
CPT/HCPCS: 36415; 36600; 51702; 71045; 71275; 80048; 80053; 81001; 82805; 83605; 83735; 84100; 84145; 84484; 85025; 85610; 85730; 87040; 87077; 87086; 87088; 87186; 87635; 87804; 93005; 94010; 94640; 94660; 94760; 99285; J0360; J0696; J1100; J1650; J7030; J7050; J7613; J7644; J8499; J8540; P9047; Q9967

== ENCOUNTER 2023-09-19 10:19 | Inpatient (IN) | payer OTHER ==
--- OUTSIDE RECORDS SUMMARY | 2023-09-19 10:22 | XMS REPORT | Continuity of Care Document ---
:1935 Author Organization [facility] t Address [address] [place] [address] Care Team Providers Name Role Phone MCCRAYDASHAWNSABRINA Primary Care Physician Unavailable [id number] Attending Clinician Unavailable CAROL MORRIS Attending Clinician Unavailable KIET MARTINEZ Attending Clinician Unavailable DELMA BOOKER Attending Clinician Unavailable DARELL_Charles Attending Clinician Unavailable GUIDO FLANNERY Attending Clinician Unavailable MALACHI PRATT Attending Clinician Unavailable SHERICE ABREU Attending Clinician Unavailable CAPRI PRIETO Attending Clinician Unavailable FITZ CERDA NATASHA Attending Clinician Unavailable [id number] Admitting Clinician Unavailable MARLYS ULRICH Admitting Clinician Unavailable CLAY_Chester-Charly Admitting Clinician Unavailable GUIDO FLANNERY Admitting Clinician Unavailable JCARLOS HENDRICKS Admitting Clinician Unavailable CAPRI PRIETO Admitting Clinician Unavailable FITZ CERDA NATASHA Admitting Clinician Unavailable Payers Payer Name Policy Type Policy Number Effective Date Expiration Date S edmund [facility] [id number] MEDICARE A B [id number] 1999 00:00:00 [employer]IG[employer] INDEMNITY [id number] 2021 00:00:00 [facility] ST[facility] [id number] 2022 PLAN 00:00:00 MEDICARE PART A \T\ [id number] 1999 B 00:00:00 [employer] [place] [id number] 2013 GENERAL 00:00:00 MEDICARE B-[place]: [id number] 1999 [id number] 00:00:00 [facility] - [id number] 2001 [facility] 00:00:00 (INDEMNITY) Problems Condition Condition Condition Status Onset Resolution Last Treating Co mments Source Name Details Category Date Date Treatment Clinician Date 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 00:00: Me dical 00 [place] Headache Headache Disease [facility] Allergies, Adverse Reactions, Alerts Allergy Allergy Status Severity Reaction(s) Onset Inactive Treating Comm ents Source Name Type Date Date Clinician NITROFUR Allergy Active [facility] ANTOIN 4[facility]17 [facility] MONOHYD/ 00:00: Medical M-CRYST 00 [place] Nitrofur Propensi Active [facility] antoin ty to 4-17 [facility] Monohyd/ adverse 00:00: Medical M-Cryst reaction 00 [place] s TETANUS DRUG Active Hives [facility] TOXOID 6-12 ity of 00:00: [address] [place] nitrofur DA Active [place] [facility] antoin 4-22 Clear 00:00: [place] 00 [facility] tetanus DA Active [place] [facility] toxoid, 4-22 Clear adsorbed 00:00: Schmidt 00 [facility] TETANUS Allergy Active High Hives [facility] VACCINES 4-22 [facility] AND 00:00: Medical TOXOID 00 [place] Tetanus Drug Active Hives, Other [facility] Vaccines Allergy (See 4-22 [facility] And Comments) 00:00: Medical Toxoid 00 [place] Social History Social Habit Start Date Stop Date Quantity Comments Source Sexual orientation [facility] Sex Assigned At [birth year] [facility] [...] by mouth [facility] MG tablet 14:34: nightly. [facility] axel 29 Center traMADoL Yes 50mg Take [address] (ULTRAM) 50 4-19 by mouth Luke s mg tablet 14:34: every 6 Medic al 29 (six) Center hours as needed for Pain. aspirin 81 Yes 81mg QD Take [address] MG EC 4-19 by mouth [facility] tablet 14:34: daily. [facility] 29 Center levothyroxi Yes 125ug Take [address] [...] Medical Ce nter Vaccine (#1)] Future Scheduled 2023-06-22 Influenza Vaccine (#1) [facility] Test 00:00:00 [code = Influenza Medical Ce nter Vaccine (#1)] Future Scheduled 2022-10-[address] [facility] Test 00:00:00 (12+) [code = Medical Center DEPRESSION SCREENING (12+)] Future Scheduled 2022-10-22 FALLS RISK SCREENING [facility] Test 00:00:00 [code = FALLS RISK Medical C enter SCREENING] Future Scheduled 2022-10-[address] [...] VACCINE (3 - Pfizer series)] Future Scheduled 2021-03-03 COVID-19 VACCINE (3 - [facility] Test 00:00:00 Pfizer series) [code = Medic al Center COVID-19 VACCINE (3 - Pfizer series)] Future Scheduled 2000-08-[address] [facility] Test 00:00:00 WELLNESS (YEAR 2 or Medical Center FIRST YEAR if no IPPE) [code = MEDICARE ANNUAL WELLNESS (YEAR 2 or FIRST YEAR if no IPPE)] Future Scheduled 2000-08-[address] [facility] Test 00:00:00 WELLNESS (YEAR 2 or Medical Center FIRST YEAR if no IPPE) [code = MEDICARE ANNUAL WELLNESS (YEAR 2 or FIRST YEAR if no IPPE)] Future Scheduled 1999 PNEUMOCOCCAL 65+ YRS [facility] Test 00:00:00 (1 - PCV) [code = Medical Ce nter PNEUMOCOCCAL 65+ YRS (1 - PCV)] Future Scheduled 1999 PNEUMOCOCCAL 65+ YRS [facility] Test 00:00:00 (1 - PCV) [code = Medical Ce nter PNEUMOCOCCAL 65+ YRS (1 - PCV)] Future Scheduled 1984 SHINGLES VACCINES ([address] [facility] Test 00:00:00 of 2) [code = SHINGLES Medic al Center VACCINES (1 of 2)] Future Scheduled 1984 SHINGLES VACCINES ([address] [facility] Test 00:00:00 of 2) [code = SHINGLES Medic al Center VACCINES (1 of 2)] Future Scheduled 1953 DTAP/TDAP/TD VACCINES [facility] 00:00:00 (1 - Tdap) [code = Medical C enter DTAP/TDAP/TD VACCINES (1 - Tdap)] Future Scheduled 1953 DTAP/TDAP/TD VACCINES [facility] 00:00:00 (1 - Tdap) [code = Medical C enter DTAP/TDAP/TD VACCINES (1 - Tdap)] Future Scheduled [address] [facility] Test 00:00:00 Counseling and Medical Cente r Screening (12+) [code = Tobacco Cessation Counseling and Screening (12+)] Future Scheduled [address] [facility] Test 00:00:00 Counseling and Medical Cente r Screening (12+) [code = Tobacco Cessation Counseling and Screening (12+)] Encounters Start End Encounter Admission Attending Care Care Encounter Source Date/Time Date/Time Type Type Clinicians Facility Department ID 2021-11-17 Outpatient 3 [id number] [facility] REF [id number] [facility] 11:26:36 [facility] Justin diaz 2022-02-05 2022-02-07 Inpatient ER CAROL MORRIS [facility] [id number] [facility] 13:19:00 13:30:00 2021-04-06 2021-04-06 Outpatient R DELMA BOOKER [facility] [id number] Univers 10:00:00 10:00:00 [facility] 2021-03-04 2021-03-04 Outpatient GC_SWHAWPRC PRIV PRIV [id number] [facility] 12:43:00 12:43:00 _[facility] [id number] [facility] 2021-01-20 2021-01-20 Emergency X ALMA DELIA, [facility] ERT [id number] Univers 11:01:00 15:26:00 GUIDO [facility] 2021-01-06 2021-01-06 [facility] [id number] Univers 13:00:00 13:00:00 MALACHI [facility] 2020-12-16 2020-12-16 [facility] [id number] Univers 15:20:00 15:20:00 MALACHI [facility] 2020-11-16 2020-11-17 Outpatient X SHERICE ABREU [facility] JAYRO [id number] Univers 16:54:00 18:54:00 [facility] 2020-10-06 2020-10-06 Outpatient R DELMA BOOKER [facility] [id number] Univers 10:00:00 10:00:00 [facility] 2020-04-19 2020-04-19 Outpatient R DELMA BOOKER [facility] [id number] Univers 10:00:00 10:00:00 [facility] 2020-04-11 2020-04-12 Outpatient X IDA [facility] JAYRO [id number] Univers 18:25:17 17:04:00 CAPRI [facility] 2019-09-10 2019-09-20 Inpatient 3 [place] [id number] [facility] 19:05:00 11:25:00 FITZ 1120 [facility] Justin diaz Results Test Description Test Time Test Comments Results Result Sour e Comments MR, BRAIN, 2022-02-07 Unlisted Reason WITHOUT CONTRAST 07:17:00 for Exam - Click Yes and Enter [facility] Reason [facility] Below->Yes CENTERName: [facility], Unlisted Reason [...] MDReport Verified Date/Time: 02/07/2022 07:17:18 Reading Location: [address] Neuro Reading Room , MRA, BRAIN, 2022-02-07 Dissection WITH 07:17:00 protocol Unlisted Reason [facility] for Exam - Click [facility] Yes and Enter CENTERName: [facility] Scottie MU : Below->Yes 1935 Sex: Unlisted Reason F [...] cervical or cranial circulation. Signed: Rocco Nagy [facility] Verified Date/Time: 02/07/2022 07:17:18 Reading Location: [address] Neuro Reading Room , MRA, NECK, 2022-02-07 Dissection WITH 07:17:00 protocol Unlisted Reason [facility] for Exam - Click Bitium Yes and Enter CENTERName: Scottie VILLAFUERTE : Below->Yes 1935 Sex: Unlisted Reason F [...] MDReport Verified Date/Time: 02/07/2022 07:17:18 Reading Location: [address] Neuro Reading Room ESIUM 2022-02-06 04:57:00 Test Item Value Reference Range Interpretation Comme nts MAGNESIUM (BEAKER) (test code = 627) 2.0 mg/dL 1.6-2.6 Dining Room Host/Hostess JOSE Ventura TIFFANY [id number] 04:57:00 Test Item Value Reference Range Interpretation Comments PHOSPHORUS (BEAKER) (test code = 3.4 mg/dL 2.3-4.7 604) Dining Room Host/Hostess JOSE Ventura TIFFANY WBASIC METABOLIC [id number] 04:56:59 Test Item Value Reference Range Interpretation [...] S NOT APPLICABLE FOR DIALYSIS PATIEN TS. Dining Room Host/Hostess JOSE Ventura TIFFANY WPROTHROMBIN [id number] 04:41:35 Test Item Value Reference Range Interpretation Comments PROTIME (BEAKER) 14.3 seconds 11.9-14.2 H (test code = 759) INR (BEAKER) (test 1.13 See_Comment [Automat ed message] code = 370) The system Bvents generated this result transmitted ref erence range: <=5.90. The reference range was not used to int erpret this result as normal/abnormal . RECOMMENDED COUMADIN/WARFARIN INR THERAPY RANGESSTANDARD DOSE: 2.0 - 3.0 Includes: PROPHYLAXIS for venous thrombosis, systemic embolization; TREATMENT for venous thrombosis and/or pulmonary embolus.HIGH RISK: Target INR is 2.5-3.5 for patients with mechanical heart valves.CBC W/PLT COUNT & AUTO [id number] 04:33:03 Test Item Value Reference Range Interpretation [...] (test code = 2801) HIGH SENSITIVITY TROPONIN [id number] 16:13:06 Test Item Value Reference Range Interpretation Comments HIGH SENSITIVITY 4 pg/ml See_Comment [Automated message] TROPONIN I (test code = The system which [id number]) generated this result transmitted ref erence range: <=17. Th e reference range was not used to interpr et this result as normal/abnormal . Dining Room Host/Hostess ID - MARGIE GThe SUPER[employer]OR [employer]CTIONAL TESTING STAT High Sensitivity Troponin-I results should be used in conjunction with other diagnostic information such as ECG, clinical observations and information, and patient symptoms to aid in the diagnosis of SC.COMPREHENSIVE METABOLIC [id number] 16:07:03 Test Item Value Reference Range Interpretation [...] S NOT APPLICABLE FOR DIALYSIS PATIEN TS. Dining Room Host/Hostess ID - MARGIE GCBC W/PLT COUNT & AUTO [id number] 15:38:22 Test Item Value Reference Range Interpretation [...] % 0-1 PERCENT (BEAKER) (test code = 8121)
--- NOTE | 2023-09-19 11:00 | RAD REPORT ---
EXAM DESCRIPTION: CT - Head Brain Wo Cont - 09/19/2023 10:48 am CLINICAL HISTORY: Alteration of awareness/confusion COMPARISON: 2021 TECHNIQUE: Computed axial tomography of the head was obtained. IV contrast was not requested. All CT scans are performed using dose optimization technique as appropriate and may include automated exposure control or mA/KV adjustment according to patient size. FINDINGS: An intracranial bleed is not seen The ventricles are normal in caliber No extra-axial fluid collection is noted. 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 Fluid within the sinuses/ mastoids is not seen. IMPRESSION: No acute intracranial abnormality is seen If patient's symptoms persist MRI of the brain would be recommended
--- NOTE | 2023-09-19 11:42 | RAD REPORT ---
EXAM DESCRIPTION: [place] Single View09/19/2023 11:13 am CLINICAL HISTORY: Lethargy/confusion COMPARISON: September 05, 2023 FINDINGS: Mild bilateral pulmonary opacities without significant change. This could represent inters titial pulmonary edema or pneumonitis. Heart is normal size Post surgical changes involve the chest
[2023-09-19 11:44] LABS: Absolute Lymphocytes (CBC) 0.6 K/uL (0.7-4.9); Hematocrit 45.6 % (36.0-45.0); Lymphocytes % 4.4 % (15.3-44.8); MCV 95.5 fL (80-100); MPV 8.6 fL (7.6-11.3); Platelets 165 thou/uL (152-406); RBC Red Blood Cell Count 4.78 M/uL (3.86-4.86)
[2023-09-19 11:57] LABS: Magnesium 2.2 mg/dL (1.6-2.4); Potassium 3.9 mEq/L (3.5-5.1)
[2023-09-19 12:07] LABS: Troponin High Sensitivity 94.2 pg/mL (<58.9)
--- NOTE | 2023-09-19 12:18 | ER ---
Nurse's Notes [facility] Name: Angela Alston Age: 87 yrs Sex: Female : 1935 Arrival Date: 09/19/2023 Time: 10:19 Bed 15 Private MD: Diagnosis: Pneumonia, unspecified organism;Elevated Troponin;UTI/ Urinary tract infection, site not specified Presentation: 09/19 10:45 Chief complaint: EMS states: [facility] called for increased lethargy, patient is on ko hospice and has a DNR, she is normally lethargic at times, stroke assessment completed which was negative, patient is weak but bilaterally and this is her normal. Coronavirus screen: At this time, the client does not indicate any symptoms associated with coronavirus-19. Ebola Screen: No symptoms or risks identified at this time. Initial Sepsis Screen: Does the patient meet any 2 criteria? No. Patient's initial sepsis screen is negative. Does the patient have a suspected source of infection? No. Patient's initial sepsis screen is negative. Risk Assessment: Do you want to hurt yourself or someone else? Patient reports no desire to harm self or others. Onset of symptoms was September 19, 2023. Care prior to arrival: Medication(s) given: Normal saline infusion, 1000 mL, IV initiated. 20 GA, in the right forearm, Glucose check: 117. 10:45 Method Of Arrival: EMS: [facility] ko1 10:45 Acuity: KANDACE 3 ko1 Triage Assessment: 10:48 General: Appears ill, Behavior is calm, cooperative. Pain: Denies pain. ko1 Historical: - Allergies: 10:48 Macrobid; ko1 10:48 Tetanus Vaccines \T\ Toxoid; ko1 - Home Meds: 10:48 Aricept 5 mg Oral tablet every day at bedtime [Active]; bisacodyl 10 mg Rectal ko1 suppository daily [Active]; guaifenesin 600 mg Oral Tablet 2 times per day [Active]; buspirone 5 mg Oral tablet 3 times per day [Active]; cranberry 450 mg Oral tablet 2 times per day [Active]; famotidine 20 mg Oral tablet every day at bedtime [Active]; levothyroxine 125 mcg cap 1 cap once daily [Active]; levothyroxine 125 mcg tablet daily [Active]; losartan 100 mg Oral tablet daily [Active]; mirabegron 50 mg Oral Tb24 1 tab once daily [Active]; furosemide 40 mg Oral tablet daily [Active]; loratadine 10 mg Oral tablet daily [Active]; losartan 50 mg Oral tab 1 tab once daily [Active]; promethazine 25 mg Oral tablet 3 times per day [Active]; potassium chloride 20 mEq Oral Packet daily [Active]; omeprazole 20 mg Oral Tablet daily [Active]; Namenda 10 mg Oral tablet 2 times per day [Active]; morphine 20 mg/ml Oral solution [Active]; Zofran Oral 4 mg every 4 hours [Active]; omeprazole 20 mg Oral cpDR 1 cap once daily [Active]; simvastatin 10 mg Oral tablet every day at bedtime [Active]; tramadol 50 mg Oral tab 1 tab every 24 hours as needed [Active]; aspirin 81 mg Oral TbEC daily [Active]; - PMHx: 10:48 Chronic obstructive lung disease; depressive disorder; Hyperlipidemia; Hypertensive ko1 disorder; Hypothyroidism; Dementia; Transient cerebral ischemia; - Immunization history:: Adult Immunizations unknown. - Social history:: Smoking status: Patient denies any tobacco usage or history of. Screenin:00 [facility] ED Fall Risk Assessment (Adult) History of falling in the last 3 months, ko1 including since admission No falls in past 3 months (0 pts) Confusion or Disorientation Yes (5 pts) Intoxicated or Sedated No (0 pts) Impaired Gait No (0 pts) Mobility Assist Device Used No (0 pt) Altered Elimination No (0 pt) Score/Fall Risk Level 3 or more points = High Risk Oriented to surroundings, Maintained a safe environment, Educated pt \T\ family on fall prevention, incl call for assistance when getting out of bed, Assessed \T\ reinforced patient's understanding of fall precautions, Provided non-skid footwear, Hourly rounding (assess needs \T\ fall precautionary measures) done, Used ambulatory aids as needed (educated on \T\ assisted with), Used gait belt as appropriate Implemented a Fall Risk Plan of Care, Apply high fall risk patient identification: yellow non skid footwear/ fall signage, Remained with patient while ambulating, Utilized family, sitter, or virtual supervisor wet room as indicated. Abuse screen: Denies threats or abuse. Denies injuries from another. Nutritional screening: No deficits noted. Tuberculosis screening: No symptoms or risk factors identified. Assessment: 11:30 Neuro: Level of Consciousness is awake, alert, confused, Oriented to person, Movie Extra are ko1 weak bilaterally Moves all extremities. Cardiovascular: No deficits noted. Respiratory: Breath sounds with wheezes bilaterally. GI: No deficits noted. : No deficits noted. EENT: No deficits noted. Derm: No deficits noted. Musculoskeletal: No deficits noted. Vital Signs: 10:48 BP 134 / 72; Pulse 84; Resp 19; Temp 97; Pulse Ox 96% on R/A; ko1 11:30 BP 134 / 78; Pulse 79; Resp 18; Pulse Ox 100% ; ko1 13:00 BP 119 / 97; Pulse 82; Resp 19; Pulse Ox 95% ; ko1 15:00 BP 145 / 85; Pulse 81; Resp 18; Pulse Ox 95% ; ko1 16:00 BP 110 / 78; Pulse 76; Resp 18; Pulse Ox 97% ; ko1 18:00 BP 155 / 97; Pulse 84; Resp 16; Pulse Ox 97% ; ko1 20:35 BP 116 / 76; Pulse 82; Resp 18; Pulse Ox 94% on R/A; oe ED Course: 10:25 Patient arrived in ED. bd 10:30 Kush De La Cruz DO is Attending Physician. ms3 10:41 Chastity Keys, KYE is Primary Nurse. ko1 10:47 Triage completed. ko1 10:48 Arm band placed on right wrist. Patient placed in an exam room, on a stretcher, on ko1 cardiac monitor technician, on pulse oximetry, Patient notified of wait time. 10:49 CT Head Brain wo Cont In Process Unspecified. EDMS 11:00 Patient has correct armband on for positive identification. Bed in low position. Call ko1 light in reach. Side rails up X2. Provided Education on: na. Client placed on continuous cardiac and pulse oximetry monitoring. NIBP monitoring applied. monitor technician on. Door closed. Noise minimized. Warm blanket given. 11:15 XRAY Chest (1 view) In Process Unspecified. EDMS 11:29 CBC with Diff Sent. ko1 11:29 Magnesium Sent. ko1 11:29 Troponin HS Sent. ko1 12:18 Isreal Barcenas MD is Hospitalizing Provider. ms3 12:30 Urine Culture Sent. ko1 13:27 Thorax Wo Con In Process Unspecified. EDMS 13:45 Inserted saline lock: 20 gauge in right antecubital area, using aseptic technique. ko1 13:51 Blood Culture Adult (2) Sent. ko1 13:51 Lactate w/ 2H reflex if indic. Sent. ko1 13:51 Protime (+inr) Sent. ko1 13:51 Ptt, Activated Sent. ko1 18:40 No provider procedures requiring assistance completed. Maintain EMS IV. Dressing ko1 intact. Good blood return noted. Site clean \T\ dry. Gauge \T\ site: 20g right FA. 18:43 Patient admitted, IV remains in place. ko1 19:06 Primary Nurse role handed off by Chastity Keys, RN bp 19:06 Shane Reeves, RN is Primary Nurse. bp Administered Medications: 13:56 Drug: Rocephin IV 1 grams IV at calculated rate once; Given slow IV push per pharmacy ko1 instructions Route: IV; Rate: calculated rate; Site: right antecubital; 14:22 Drug: AZITHromycin IVPB 500 mg IVPB once over 1 hrs; (mix in 250 mL NS) Route: IVPB; ko1 Infused Over: 1 hrs; Site: right antecubital; Medication: 11:00 VIS not applicable for this client. ko1 Outcome: 12:18 Decision to Hospitalize by Provider. ms3 13:45 Admitted to Med/surg accompanied by tech, room 414, ko1 13:45 Condition: stable 13:45 Discharge instructions given to patient, family, Instructed on the need for admit, Demonstrated understanding of instructions, 20:46 Admitted to Med/surg accompanied by tech, via stretcher, room 414, Report called to bp LAUREL FISHMAN 22:05 Patient left the ED. bp Signatures: Dispatcher [employer] EDMS Carmela Martin Orlando oe Peltier, Brian, RN RN Kush Ortiz DO DO ms3 Chastity Keys, RN RN ko1 Corrections: (The following items were deleted from the chart) 13:34 11:29 BASIC METABOLIC PANEL+C.LAB.BRZ drawn and sent. ko1 EDMS
--- NOTE | 2023-09-19 12:18 | EDPHYS ---
Physician Documentation [facility] Name: Angela Alston Age: 87 yrs Sex: Female : 1935 Arrival Date: 09/19/2023 Time: 10:19 Bed 15 Private MD: ED Physician Kush De La Cruz HPI: 09/19 13:00 This 87 yrs old Female presents to ER via EMS with complaints of AMS. ms3 13:00 87-year-old female with past medical history of COPD, depression, hyperlipidemia, ms3 hypertension presents to the emergency department via [facility] for altered mental status. EMS was called out as patient Slashing to the right and nursing facility was concerned for stroke. On EMS arrival patient with generalized weakness, however equal strength bilaterally and nursing facility stated patient is more altered than normal. HPI limited as patient has history of dementia. Historical: - Allergies: 10:48 Macrobid; ko1 10:48 Tetanus Vaccines \T\ Toxoid; ko1 - Home Meds: 10:48 Aricept 5 mg Oral tablet every day at bedtime [Active]; bisacodyl 10 mg Rectal ko1 suppository daily [Active]; guaifenesin 600 mg Oral Tablet 2 times per day [Active]; buspirone 5 mg Oral tablet 3 times per day [Active]; cranberry 450 mg Oral tablet 2 times per day [Active]; famotidine 20 mg Oral tablet every day at bedtime [Active]; levothyroxine 125 mcg cap 1 cap once daily [Active]; levothyroxine 125 mcg tablet daily [Active]; losartan 100 mg Oral tablet daily [Active]; mirabegron 50 mg Oral Tb24 1 tab once daily [Active]; furosemide 40 mg Oral tablet daily [Active]; loratadine 10 mg Oral tablet daily [Active]; losartan 50 mg Oral tab 1 tab once daily [Active]; promethazine 25 mg Oral tablet 3 times per day [Active]; potassium chloride 20 mEq Oral Packet daily [Active]; omeprazole 20 mg Oral Tablet daily [Active]; Namenda 10 mg Oral tablet 2 times per day [Active]; morphine 20 mg/ml Oral solution [Active]; Zofran Oral 4 mg every 4 hours [Active]; omeprazole 20 mg Oral cpDR 1 cap once daily [Active]; simvastatin 10 mg Oral tablet every day at bedtime [Active]; tramadol 50 mg Oral tab 1 tab every 24 hours as needed [Active]; aspirin 81 mg Oral TbEC daily [Active]; - PMHx: 10:48 Chronic obstructive lung disease; depressive disorder; Hyperlipidemia; Hypertensive ko1 disorder; Hypothyroidism; Dementia; Transient cerebral ischemia; - Immunization history:: Adult Immunizations unknown. - Social history:: Smoking status: Patient denies any tobacco usage or history of. ROS: 13:00 Unable to obtain ROS due to baseline dementia, ms3 Exam: 13:03 Constitutional: This is a well developed, well nourished patient who is awake, alert, ms3 and in no acute distress. Head/Face: Normocephalic, atraumatic. Neck: Trachea midline, no cervical lymphadenopathy. Supple, full range of motion without nuchal rigidity, or vertebral point tenderness. No Meningismus. Chest/axilla: Normal chest wall appearance and motion. Nontender with no deformity. Cardiovascular: Regular rate and rhythm with a normal S1 and S2. No gallops, murmurs, or rubs. Normal PMI, no JVD. No pulse deficits. Respiratory: Lungs have equal breath sounds bilaterally, clear to auscultation and percussion. No rales, rhonchi or wheezes noted. No increased work of breathing, no retractions or nasal flaring. Abdomen/GI: Soft, non-tender, with normal bowel sounds. No distension or tympany. No guarding or rebound. No evidence of tenderness throughout. Skin: Warm, dry with normal turgor. Normal color with no rashes, no lesions, and no evidence of cellulitis. MS/ Extremity: Pulses equal, no cyanosis. Neurovascular intact. Full, normal range of motion. 16:59 ECG was reviewed by the Attending Physician. ms3 Vital Signs: 10:48 BP 134 / 72; Pulse 84; Resp 19; Temp 97; Pulse Ox 96% on R/A; ko1 11:30 BP 134 / 78; Pulse 79; Resp 18; Pulse Ox 100% ; ko1 13:00 BP 119 / 97; Pulse 82; Resp 19; Pulse Ox 95% ; ko1 15:00 BP 145 / 85; Pulse 81; Resp 18; Pulse Ox 95% ; ko1 16:00 BP 110 / 78; Pulse 76; Resp 18; Pulse Ox 97% ; ko1 18:00 BP 155 / 97; Pulse 84; Resp 16; Pulse Ox 97% ; ko1 20:35 BP 116 / 76; Pulse 82; Resp 18; Pulse Ox 94% on R/A; oe MDM: 10:30 Patient medically screened. ms3 13:03 Differential Diagnosis: CVA, electrolyte abnormality, pneumonia, UTI. Data reviewed: ms3 vital signs, nurses notes, lab test result(s), EKG, radiologic studies, and as a result, I will admit patient. Consideration of Admission/Observation Patient was admitted/placed on observation. Management of patient was discussed with the following: Hospitalist: Dr Way. I considered the following discharge prescriptions or medication management in the emergency department Medications were administered in the Emergency Department. See MAR. Independent interpretation of the following test(s) in the Emergency Department EKG: See my EKG interpretation above. Historians other than the Patient: EMS: [facility]. Counseling: I had a detailed discussion with the patient and/or guardian regarding the historical points, exam findings, and any diagnostic results supporting the discharge/admit diagnosis, lab results, radiology results, the need for further work-up and treatment in the hospital. 09/19 10:32 Order name: CBC with Diff; Complete Time: 12:58 ms3 09/19 10:32 Order name: Magnesium; Complete Time: 14:39 ms3 09/19 10:32 Order name: Troponin HS; Complete Time: 14:39 ms3 09/19 10:32 Order name: Urinalysis w/ reflexes; Complete Time: 12:58 ms3 09/19 12:16 Order name: Blood Culture Adult (2) ms3 09/19 12:16 Order name: Lactate w/ 2H reflex if indic.; Complete Time: 14:39 ms3 09/19 12:16 Order name: Protime (+inr) ms3 09/19 12:16 Order name: Ptt, Activated ms3 09/19 12:29 Order name: Urine Culture EDMS 09/19 12:37 Order name: CBC Smear Scan; Complete Time: 12:58 EDMS 09/19 13:10 Order name: CBC with Automated Diff EDMS 09/19 13:10 Order name: CBC with Automated Diff EDMS 09/19 13:10 Order name: Comprehensive Metabolic Panel EDMS 09/19 13:10 Order name: Comprehensive Metabolic Panel EDMS 09/19 13:10 Order name: Magnesium EDMS 09/19 13:10 Order name: Magnesium EDMS 09/19 13:10 Order name: NT PRO-BNP EDMS 09/19 13:10 Order name: NT PRO-BNP EDMS 09/19 13:10 Order name: Phosphorus EDMS 09/19 13:10 Order name: Phosphorus EDMS 09/19 13:10 Order name: Procalcitonin EDMS 09/19 13:10 Order name: Procalcitonin; Complete Time: 14:39 EDMS 09/19 13:10 Order name: Troponin High Sensitivity EDMS 09/19 13:10 Order name: Troponin High Sensitivity EDMS 09/19 13:34 Order name: Comprehensive Metabolic Panel; Complete Time: 14:39 EDMS 09/19 10:32 Order name: XRAY Chest (1 view); Complete Time: 12:15 ms3 09/19 10:32 Order name: CT Head Brain wo Cont; Complete Time: 12:15 ms3 09/19 13:10 Order name: Thorax Wo Con EDMS 09/19 13:10 Order name: Echo with Doppler EDMS 09/19 13:10 Order name: Echo with Doppler EDMS 09/19 13:14 Order name: Thorax Wo Con EDMS 09/19 10:32 Order name: EKG; Complete Time: 10:32 ms3 09/19 10:32 Order name: Cardiac monitoring; Complete Time: 11:15 ms3 09/19 10:32 Order name: EKG - Nurse/Tech; Complete Time: 11:43 ms3 09/19 10:32 Order name: IV Saline Lock; Complete Time: 11:15 ms3 09/19 10:32 Order name: Labs collected and sent; Complete Time: 11:29 ms3 09/19 10:32 Order name: O2 Per Protocol; Complete Time: 11:15 ms3 09/19 10:32 Order name: O2 Sat Monitoring; Complete Time: 11:15 ms3 09/19 12:16 Order name: Accucheck; Complete Time: 13:51 ms3 09/19 12:16 Order name: IV Saline Lock - Large Bore; Complete Time: 12:30 ms3 09/19 12:16 Order name: Vital Signs; Complete Time: 12:30 ms3 09/19 12:17 Order name: Straight Cath - Urine; Complete Time: 12:30 ms3 09/19 14:05 Order name: Labs - recollect needed: recollect blue top; Complete Time: 16:32 bd EC:59 Rate is 73 beats/min. Rhythm is regular. Left axis deviation noted. DC interval is ms3 normal. QRS interval is normal. QT interval is normal. Clinical impression: NSR w/ Non-specific ST/T Changes. Interpreted by me. Reviewed by me. Administered Medications: 13:56 Drug: Rocephin IV 1 grams IV at calculated rate once; Given slow IV push per pharmacy ko1 instructions Route: IV; Rate: calculated rate; Site: right antecubital; 14:22 Drug: AZITHromycin IVPB 500 mg IVPB once over 1 hrs; (mix in 250 mL NS) Route: IVPB; ko1 Infused Over: 1 hrs; Site: right antecubital; Disposition: 13:04 Chart complete. ms3 Disposition Summary: 09/19/23 12:18 Hospitalization Ordered Notes: Hospitalization Status: Inpatient Admission ms3 Provider: Isreal Barcenas ms3 Condition: Stable ms3 Problem: new ms3 Symptoms: are unchanged ms3 Bed/Room Type: Standard ms3 Location: Telemetry/MedSurg (Inpatient)(09/19/23 18:23) bd Room Assignment: 414(09/19/23 18:23) bd Diagnosis - Pneumonia, unspecified organism ms3 - Elevated Troponin ms3 - UTI/ Urinary tract infection, site not specified ms3 Forms: - Medication Reconciliation Form ms3 - SBAR form ms3 - Leadership Thank You Letter ms3 Signatures: Dispatcher [employer] EDMS Carmela Martin bd Jonnathan Martinez, RN RN jl7 Kush De La Cruz DO DO ms3 Chastity Keys, KYE RN ko1 Corrections: (The following items were deleted from the chart) 13:14 13:10 Thorax Wo Con ordered. EDMS EDMS 13:34 10:32 BASIC METABOLIC PANEL+C.LAB.BRZ ordered. EDMS EDMS 13:34 12:15 BASIC METABOLIC PANEL+C.LAB.BRZ reviewed. ms3 EDMS 13:34 12:16 COMPREHENSIVE METABOLIC PANEL+C.LAB.BRZ ordered. EDMS EDMS 14:57 12:18 Telemetry/MedSurg (Inpatient) ms3 jl7 14:57 12:18 ms3 jl7 18:23 14:57 [facility] ER HOLD jl7 bd 18:23 14:57 ERHOLD- jl7 bd
[2023-09-19 12:26] LABS: Specific Gravity 1.017 (1.005-1.030); Urine Bacteria 20-50 /HPF (<20); Urine Bilirubin NEGATIVE (Negative); Urine Blood Negative (Negative); Urine Clarity Extremely Turbid (Clear); Urine Color Light-Yellow (Yellow); Urine Crystals Unidentified Few /HPF (None Seen); Urine Glucose NEGATIVE (Negative); Urine Mucus 2+ /HPF (None Seen); Urine Protein TRACE (Negative); Urine Urobilinogen Normal (Normal)
[2023-09-19 12:37] LABS: Blood Morphology Comment NOT SEEN (NOT SEEN); Platelet Estimate ADEQ; White Blood Cell Scan OK (OK)
[2023-09-19] MEDS ORDERED: ONDANSETRON 4 MG/2 ML VIAL IV PRN (13:03)
[2023-09-19] MEDS ORDERED: IPRATROPIUM BROM 0.5MG/2.5ML NEB PRN (13:03)
[2023-09-19] MEDS ORDERED: ACETAMINOPHEN 500 MG TAB PO PRN (13:03)
[2023-09-19] MEDS ORDERED: ALBUTEROL 2.5 MG/3 ML NEB SOL NEB PRN ×2 (13:03→14:00)
--- NOTE | 2023-09-19 13:14 | P.HP ---
Certification for Inpatient Patient admitted to: Observation With expected LOS: <2 Midnights Patient will require the following post-hospital care: None Practitioner: I am a practitioner with admitting privileges, knowledge of patient current condition, hospital course, and medical plan of care. Services: Services provided to patient in accordance with Admission requirements found in Title 42 Section 412.3 of the Code of Federal Regulations Patient History Date of Service: 09/19/23 Reason for admission: Acute CHF vs. Pneumonia History of Present Illness: Patient 87-year-old female came to the hospital with shortness of breath. Patient was having complaints of cough and congestion. [facility]. She was just here couple weeks ago with similar complaints. She is at her altered mental status. She [facility]. The daughter did not want to revoke hospice but she did not want her to be evaluated for her shortness of breath. I did speak to the daughter regarding patient's hospice diagnosis which she states is dementia. If patient is aspirating then that may be part of her dementia diagnosis and then her prognosis will be poor. The patient could also have CHF as patient has bilateral interstitial opacities which could be edema. Will get an echocardiogram and BNP and diurese. Patient be admitted for observation so we can get her tuned up and feeling better. Anticipate discharge in a.m. Allergies nitrofurantoin [From Macrobid] Allergy (Verified 10/29/21 22:11) Hives/Rash Tetanus Vaccines and Toxoid Allergy (Verified 10/29/21 22:11) unknown Home Medications: Aspirin [Aspirin EC 81 MG] 81 mg PO DAILY 10/29/21 Cranberry Fruit [Cranberry] 450 mg PO BID 10/29/21 Levothyroxine Sodium [Synthroid] 125 mcg PO DAILY 10/29/21 Losartan Potassium [Cozaar] 100 mg PO DAILY 10/29/21 Memantine HCl [Namenda*] 10 mg PO BID 10/29/21 Omeprazole 20 mg PO BEDTIME 10/29/21 Simvastatin 10 mg PO BEDTIME 10/29/21 Acetaminophen [Tylenol*] 650 mg PO Q4HP PRN 09/06/23 Bisacodyl [Dulcolax*] 10 mg PO DAILYPRN PRN 09/06/23 Buspirone HCl [Buspar*] 5 mg PO TID 09/06/23 Carboxymethylcellulose Sodium [Artificial Tears] 2 gtt OPTH BID 09/06/23 Donepezil [Aricept*] 5 mg PO BEDTIME 09/06/23 Famotidine [Pepcid*] 20 mg PO BEDTIME 09/06/23 Furosemide [Lasix*] 40 mg PO DAILY 09/06/23 Guaif/Dm [Robitussin Dm*] 10 ml PO Q6HP PRN 09/06/23 Hyoscyamine Sulfate [Levsin TAB*] 1 tab PO Q4HP PRN 09/06/23 Ipratropium/Albuterol Sulfate [Iprat-Albut 0.5-3(2.5) mg/3 ml] 3 ml IH Q6HP PRN 09/06/23 Levothyroxine [Synthroid*] 125 mcg PO DAILY 09/06/23 Loperamide [Imodium*] 2 tab PO PRN MDD 8tabs 09/06/23 Loratadine [Claritin*] 10 mg PO DAILY 09/06/23 Melatonin 5 mg PO BEDTIME 09/06/23 Morphine Sulfate 0.5 ml PO Q1H PRN 09/06/23 Morphine Sulfate 1 ml PO Q1H PRN 09/06/23 Ondansetron [Zofran (Odt)*] 4 mg PO Q4HP PRN 09/06/23 Promethazine HCl 25 mg PO Q4HP PRN 09/06/23 guaiFENesin [Guaifenesin ER] 600 mg PO Q12H 09/06/23 Cefpodoxime Proxetil 100 mg PO BID #6 tab 09/08/23 Nirmatrelvir/Ritonavir [Paxlovid 150-100 mg Pack (Eua)] 2 tab PO BID #12 tab 09/08/23 dexAMETHasone [Decadron*] 4 mg PO DAILY #5 tab 09/08/23 - Past Medical/Surgical History Diabetic: No -: Dementia -: Hypothyroidism -: Hypertension -: CAD -: COPD -: -: Bilateral knee replacements -: Back surgery Psychosocial/ Personal History: half-way resident - Family History Mother Medical History: Diabetes Brother Medical History: Diabetes - Social History Alcohol use: No CD- Drugs: No Caffeine use: Yes Review of Systems 10-point ROS is otherwise unremarkable Physical Examination - Vital Signs Temperature: 98 F (reviewed) - Physical Exam General: Alert, In no apparent distress, Demented, Confused HEENT: Atraumatic, PERRLA, Mucous membr. moist/pink, EOMI, Sclerae nonicteric Neck: Supple, 2+ carotid pulse no bruit, No LAD, Without JVD or thyroid abnormality Respiratory: Diminished Cardiovascular: Regular rate/rhythm, Normal S1 S2, Systolic murmur Gastrointestinal: Normal bowel sounds, Soft and benign, Non-distended, No tenderness Musculoskeletal: No clubbing, No swelling, No tenderness Integumentary: No rashes Neurological: Sensation intact, Cranial nerves 3-12 intact - Studies Laboratory Data (last 24 hrs) 09/19/23 09/19/23 11:20 11:20 WBC 14.90 H Hgb 15.0 Hct 45.6 H Plt Count 165 Sodium 138 Potassium 3.9 BUN 18 Creatinine 0.75 Glucose 108 H Magnesium 2.2 Assessment & Plan - Problems (Diagnosis) (1) Respiratory distress Current Visit: Yes Status: Acute (2) Acute CHF Current Visit: Yes Status: Acute (3) Altered mental status Current Visit: Yes Status: Acute (4) Aspiration pneumonia Current Visit: Yes Status: Acute (5) Vascular dementia Current Visit: Yes Status: Acute (6) COPD (chronic obstructive pulmonary disease) Current Visit: No Status: Chronic Qualifiers: COPD type: unspecified COPD Qualified Code(s): J44.9 - Chronic obstructive pulmonary disease, unspecified (7) Hypertension Current Visit: No Status: Chronic Qualifiers: Hypertension type: primary hypertension Qualified Code(s): I10 - Essential (primary) hypertension - Plan Plan: 1. Patient with shortness of breath secondary to aspiration pneumonia versus CHF. Will go ahead and diurese patient and start on antibiotics. Will assess patient's pulmonary status with CT imaging and echocardiogram. Patient is under hospice care so the plan is to discharge back to [facility] under hospice. Will admit for observation. Hopefully, patient will be feeling much better in a.m. and we can discharge her back home and continue with hospice care. 2. History of hypertension continue with strict blood pressure control 3. Vascular dementia; supportive care and patient is under hospice care for that diagnosis 4. GI DVT prophylaxis Discharge Plan: Halfway Plan to discharge in: 24 Hours - Advance Directives Does patient have a Living Will: Yes Does patient have a Durable POA for Healthcare: No - Code Status/Comfort Care Code Status Assessed: Yes Code Status: Full Code Critical Care: No Time Spent Managing PTS Care (In Minutes): 45
[2023-09-19 13:49] LABS: Albumin 2.3 g/dL (3.4-5.0); Bilirubin Total 0.6 mg/dL (0.2-1.0); Protein, Total 5.7 g/dL (6.4-8.2)
[2023-09-19] MEDS: ENOXAPARIN 40 MG/0.4 ML SQ SCH (14:00)
[2023-09-19] MEDS ORDERED: CEFTRIAXONE 1000 MG/VIAL ONE (14:07)
[2023-09-19] MEDS ORDERED: AZITHROMYCIN 500 MG INJ IVPB ONE (14:07)
[2023-09-19 15:05] LABS: Protime INR 1.05
--- NOTE | 2023-09-19 15:57 | RAD REPORT ---
EXAM DESCRIPTION: CT - Thorax Wo Con - 09/19/2023 1:25 pm CLINICAL HISTORY: aspiration pneumonia COMPARISON: Chest For Pe Angio dated 09/05/2023; Chest Single View dated 09/19/2023 TECHNIQUE: Axial thin cut images of the chest were obtained without IV contrast. Multiplanar reforma ts were generated and reviewed. All CT scans are performed using dose optimization technique as appropriate and may include automated exposure control or mA/KV adjustment according to patient size. FINDINGS: No mass or consolidative opacity in the lung parenchyma. Scattered peripheral reticular op acities in the upper lobes bilaterally probably with adjacent sub pleural regional emphysematous smal l bullae. No pleural thickening or pleural effusion. No pneumothorax. The heart is not enlarged. Sequelae of median sternotomy and aortic valve prosthesis placement. No ab normal mediastinal or hilar masses or lymphadenopathy seen. No significant aortic or pulmonary artery findings. Assessment is limited in the absence of IV contrast. No chest wall mass or abnormal axillary lymphadenopathy. Evaluation of the solid abdominal structures reveals no suspicious findings. 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
[2023-09-19] MEDS: METOPROLOL TAR 25 MG TAB PO SCH (17:00)
[2023-09-19] MEDS: FUROSEMIDE 40 MG/4 ML VIAL IV SCH (17:00)
[2023-09-19] MEDS: PIPER TAZO 3.375 GM in NA CHLORIDE 0.9% 100 ML IV SCH (17:00)
[2023-09-19] MEDS ORDERED: FUROSEMIDE 40 MG/4 ML VIAL ONE (18:04)
[2023-09-19] MEDS ORDERED: METOPROLOL TAR 25 MG TAB ONE (18:04)
[2023-09-19] MEDS ORDERED: PIPERACIL/TAZO 3.375 GM VIAL IV ONE (18:04)
[2023-09-19] MEDS ORDERED: ENOXAPARIN 40 MG/0.4 ML SQ ONE (18:04)
[2023-09-19] MEDS ORDERED: NA CHLORIDE 0.9% 250 ML ONE (18:11)
[2023-09-19 22:57] VITALS: BMI 46.5
[2023-09-20] MEDS: PIPER TAZO 3.375 GM in NA CHLORIDE 0.9% 100 ML IV SCH ×3 (01:30→16:03)
[2023-09-20 06:05] LABS: Absolute Lymphocytes (CBC) 1.1 K/uL (0.7-4.9); Hematocrit 42.5 % (36.0-45.0); Lymphocytes % 11.1 % (15.3-44.8); MCV 94.9 fL (80-100); MPV 8.5 fL (7.6-11.3); Platelets 142 thou/uL (152-406); RBC Red Blood Cell Count 4.48 M/uL (3.86-4.86)
[2023-09-20 06:29] LABS: Albumin 2.3 g/dL (3.4-5.0); Bilirubin Total 0.8 mg/dL (0.2-1.0); Magnesium 2.1 mg/dL (1.6-2.4); Phosphorus 2.4 mg/dL (2.5-4.9); Potassium 3.3 mEq/L (3.5-5.1); Protein, Total 5.7 g/dL (6.4-8.2)
[2023-09-20 06:30] LABS: Troponin High Sensitivity 81.7 pg/mL (<58.9)
[2023-09-20] MEDS: METOPROLOL TAR 25 MG TAB PO SCH ×2 (08:51→16:04)
[2023-09-20] MEDS: ENOXAPARIN 40 MG/0.4 ML SQ SCH (08:51)
[2023-09-20] MEDS: FUROSEMIDE 40 MG/4 ML VIAL IV SCH ×2 (08:51→16:05)
[2023-09-20] MEDS: POTASS/SODIUM PHOSPHATE 1 PKT POWD.PACK PO SCH ×3 (08:55→11:54)
[2023-09-20] MEDS ORDERED: POTASSIUM 25 MEQ EFFERV TAB PO ONE (09:00)
--- NOTE | 2023-09-20 15:16 | EKG ---
Test Date: 2023-09-19 Test Time: 11:38:58 Director Packaging: PAVAN MEASUREMENT RESULTS: Intervals: Rate: 73 IA: 156 QRSD: 78 QT: 376 QTc: 414 [place]: P: 59 IA: 156 QRS: -32 T: 76 INTERPRETIVE STATEMENTS: Normal sinus rhythm Left axis deviation Abnormal ECG Compared to ECG 09/05/2023 17:19:52 Left-axis deviation now present Ventricular premature complex(es) no longer present Electronically Signed On 09-20-23 15:12:07 BALL THREAD MACHINE TENDER by Gilberto Mendoza
[2023-09-20] MEDS ORDERED: VANCOMYCIN 2.25 GM in NA CHLORIDE 0.9% 500 ML IVPB ONE (20:00)
[2023-09-21] MEDS: PIPER TAZO 3.375 GM in NA CHLORIDE 0.9% 100 ML IV SCH ×2 (01:14→08:39)
--- NOTE | 2023-09-21 07:08 | ECHO ---
HEIGHT: 4 ft 7 in WEIGHT: 200 lb 0 oz DATE OF STUDY: 09/20/[address]: Isreal Barcenas MD 2-DIMENSIONAL: YES M.MODE: YES DOPPLER: YES COLOR FLOW: YES TDS: PORTABLE: YES DEFINITY: BUBBLE STUDY: DIAGNOSIS: CONGESTIVE HEART FAILURE CARDIAC HISTORY: CATHERIZATION: SURGERY: PROSTHETIC VALVE: PACEMAKER: MEASUREMENTS (cm) DIASTOLIC (NORMALS) SYSTOLIC (NORMALS) IVSd 1.0 (0.6-1.2) LA Diam (1.9-4.0) LVEF 79% LVIDd 3.7 (3.5-5.7) LVIDs 2.0 (2.0-3.5) %FS 47% LVPWd 1.1 (0.6-1.2) Ao Diam 2.8 (2.0-3.7) 2 DIMENSIONAL ASSESSMENT: RIGHT ATRIUM: NORMAL LEFT ATRIUM: ENLARGED RIGHT VENTRICLE: NORMAL LEFT VENTRICLE: NORMAL TRICUSPID VALVE: MILD TRICUSPID REGURGITATION MITRAL VALVE: SEVERE MITRAL REGURGITATION PULMONIC VALVE: MILD PULMONIC INSUFFICIENCY AORTIC VALVE: CALCIFIED, NO AORTIC STENOSIS PERICARDIAL EFFUSION: NONE AORTIC ROOT: NORMAL LEFT VENTRICULAR WALL MOTION: NORMAL DOPPLER/COLOR FLOW: SEE BELOW COMMENTS: 1. NORMAL LEFT VENTRICULAR EJECTION FRACTION 60-65% WITH NORMAL WALL MOTION 2. GRADE I DIASTOLIC DYSFUNCTION 3. LEFT ATRIAL ENLARGEMENT 4. 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 MILD TRICUSPID REGURGITATION TECHNOLOGIST: ARGENIS HUANG
[2023-09-21] MEDS ORDERED: NA CHLORIDE 0.9% 0 ML ONE (07:15)
[2023-09-21 07:16] LABS: Absolute Lymphocytes (CBC) 1.3 K/uL (0.7-4.9); Hematocrit 42.9 % (36.0-45.0); Lymphocytes % 14.4 % (15.3-44.8); MCV 95.3 fL (80-100); MPV 9.1 fL (7.6-11.3); Platelets 136 thou/uL (152-406)
[2023-09-21 07:33] LABS: Magnesium 2.4 mg/dL (1.6-2.4); Phosphorus 2.8 mg/dL (2.5-4.9); Potassium 3.7 mEq/L (3.5-5.1)
--- NOTE | 2023-09-21 07:56 | RAD REPORT ---
EXAM DESCRIPTION: RAD - Chest Single View - 09/21/2023 4:55 am CLINICAL HISTORY: pneumonia COMPARISON: Chest Single View dated 09/19/2023; Chest Single View dated 09/05/2023; Chest Single Vie w dated 02/05/2022; Chest Single View dated 11/01/2021; Thorax Wo Con dated 09/19/2023 FINDINGS: Lines: None. Lungs: Diffuse prominence of the pulmonary interstitium. Pleural: No significant pleural effusions or pneumothorax. Cardiac: The heart size is within normal limits. Mediastinum: Within normal limits. Bones: No acute fractures. Sternotomy. Severe degenerative changes in the shoulders. Other: None IMPRESSION: Low lung volumes with diffuse prominence of the pulmonary interstitium which may be rela tootie to chronic changes. A developing pneumonia in the right upper lobe difficult to entirely exclude.
[2023-09-21] MEDS: METOPROLOL TAR 25 MG TAB PO SCH ×2 (08:00→16:16)
[2023-09-21] MEDS: FUROSEMIDE 40 MG/4 ML VIAL IV SCH ×2 (08:42→16:15)
[2023-09-21] MEDS: ENOXAPARIN 40 MG/0.4 ML SQ SCH (08:42)
[2023-09-21] MEDS ORDERED: POTASSIUM 25 MEQ EFFERV TAB PO ONE (14:00)
[2023-09-21] MEDS: CEFEPIME 2 GM in NA CHLORIDE 0.9% 100 ML IV SCH (20:04)
[2023-09-22] MEDS ORDERED: VANCOMYCIN 1.75 GM in NA CHLORIDE 0.9% 500 ML IVPB SCH (08:00)
[2023-09-22] MEDS: METOPROLOL TAR 25 MG TAB PO SCH ×2 (08:00→16:23)
[2023-09-22] MEDS: CEFEPIME 2 GM in NA CHLORIDE 0.9% 100 ML IV SCH ×2 (08:12→20:23)
[2023-09-22] MEDS: ENOXAPARIN 40 MG/0.4 ML SQ SCH (08:12)
[2023-09-22] MEDS: FUROSEMIDE 40 MG/4 ML VIAL IV SCH ×2 (08:14→16:23)
[2023-09-22 08:54] LABS: Phosphorus 2.9 mg/dL (2.5-4.9); Potassium 3.8 mEq/L (3.5-5.1)
[2023-09-22] MEDS ORDERED: POTASSIUM 25 MEQ EFFERV TAB PO ONE (10:44)
[2023-09-23] MEDS: METOPROLOL TAR 25 MG TAB PO SCH ×2 (08:00→17:00)
[2023-09-23] MEDS: ENOXAPARIN 40 MG/0.4 ML SQ SCH (08:48)
[2023-09-23] MEDS: FUROSEMIDE 40 MG/4 ML VIAL IV SCH ×2 (08:48→17:37)
[2023-09-23] MEDS: CEFEPIME 2 GM in NA CHLORIDE 0.9% 100 ML IV SCH ×2 (08:49→20:15)
--- NOTE | 2023-09-23 13:50 | P.PN ---
Date of Service: 09/20/23 Subjective view of Systems Patient is clinically more awake and alert. Patient cultures are pending. Patient still confused but overall she is interacting much more appropriately. Daughter at bedside and agrees that patient has improved. Continue with antibiotics and wait for cultures. Hospice has been revoked. Physical Examination - Vital Signs Reviewed - Physical Exam General: Alert, demented but following commands Respiratory: Diminished with rhonchi's Cardiovascular: Regular rate/rhythm, Normal S1 S2, Systolic ejection murmur II/ Gastrointestinal: Normal bowel sounds, Soft and benign, Non-distended, No tenderness Musculoskeletal: No clubbing, No swelling, No tenderness Integumentary: No rashes Neurological: No focal deficits Assessment & Plan - Problems (Diagnosis) (1) Respiratory distress Current Visit: Yes Status: Acute (2) Acute CHF Current Visit: Yes Status: Acute (3) Altered mental status Current Visit: Yes Status: Acute (4) Aspiration pneumonia Current Visit: Yes Status: Acute (5) Vascular dementia Current Visit: Yes Status: Acute (6) COPD (chronic obstructive pulmonary disease) Current Visit: No Status: Chronic COPD type: unspecified COPD Qualified Code(s): J44.9 - Chronic obstructive pulmonary disease, unspecified (7) Hypertension Current Visit: No Status: Chronic Hypertension type: primary hypertension Qualified Code(s): I10 - Essential (primary) hypertension - Plan Continue with plan of care as mentioned below: 1. Patient with pneumonia. Continue with antibiotics. Clinical symptoms are improved. Awaiting for culture results. 2. History of hypertension continue with strict blood pressure control 3. Vascular dementia; supportive care and patient is under hospice care for that diagnosis 4. GI DVT prophylaxis Discharge Plan: Hospice Halfway Plan to discharge in: 24 Hours - Advance Directives Does patient have a Living Will: Yes Does patient have a Durable POA for Healthcare: No - Code Status/Comfort Care Code Status Assessed: Yes Code Status: DNAR Critical Care: No Time Spent Managing PTS Care (In Minutes): 30
--- NOTE | 2023-09-23 13:52 | P.PN ---
Date of Service: 09/21/23 Subjective view of Systems Patient is doing well with no new complaints. Clinical symptoms are improved. Cultures with gram-positive bacteremia. Waiting for sensitivities. Physical Examination - Vital Signs Reviewed - Physical Exam General: Alert, demented but following commands Respiratory: Diminished with rhonchi's Cardiovascular: Regular rate/rhythm, Normal S1 S2, Systolic ejection murmur II/ Gastrointestinal: Normal bowel sounds, Soft and benign, Non-distended, No tenderness Musculoskeletal: No clubbing, No swelling, No tenderness Integumentary: No rashes Neurological: No focal deficits Assessment & Plan - Problems (Diagnosis) (1) Respiratory distress Current Visit: Yes Status: Acute (2) Acute CHF Current Visit: Yes Status: Acute (3) Altered mental status Current Visit: Yes Status: Acute (4) Aspiration pneumonia Current Visit: Yes Status: Acute (5) Vascular dementia Current Visit: Yes Status: Acute (6) COPD (chronic obstructive pulmonary disease) Current Visit: No Status: Chronic COPD type: unspecified COPD Qualified Code(s): J44.9 - Chronic obstructive pulmonary disease, unspecified (7) Hypertension Current Visit: No Status: Chronic Hypertension type: primary hypertension Qualified Code(s): I10 - Essential (primary) hypertension - Plan Continue with plan of care as mentioned below: 1. Patient with pneumonia. Continue with antibiotics. Clinical symptoms are improved. Awaiting for culture results. 2. History of hypertension continue with strict blood pressure control 3. Vascular dementia; supportive care and patient is under hospice care for that diagnosis 4. GI DVT prophylaxis Discharge Plan: Intermediate Plan to discharge in: 24 Hours - Advance Directives Does patient have a Living Will: Yes Does patient have a Durable POA for Healthcare: No - Code Status/Comfort Care Code Status Assessed: Yes Code Status: DNAR Critical Care: No Time Spent Managing PTS Care (In Minutes): 30
--- NOTE | 2023-09-23 13:55 | P.PN ---
Date of Service: 09/22/23 Subjective view of Systems Patient continues to do well. Cultures show Physical Examination - Vital Signs Reviewed - Physical Exam General: Alert, demented but following commands Respiratory: Diminished with rhonchi's Cardiovascular: Regular rate/rhythm, Normal S1 S2, Systolic ejection murmur II/ Gastrointestinal: Normal bowel sounds, Soft and benign, Non-distended, No tenderness Musculoskeletal: No clubbing, No swelling, No tenderness Integumentary: No rashes Neurological: No focal deficits Assessment & Plan - Problems (Diagnosis) (1) Respiratory distress Current Visit: Yes Status: Acute (2) Acute CHF Current Visit: Yes Status: Acute (3) Altered mental status Current Visit: Yes Status: Acute (4) Urinary tract infection secondary to Enterococcus faecalis and E. coli Current Visit: Yes Status: Acute (5) Vascular dementia Current Visit: Yes Status: Acute (6) COPD (chronic obstructive pulmonary disease) Current Visit: No Status: Chronic COPD type: unspecified COPD Qualified Code(s): J44.9 - Chronic obstructive pulmonary disease, unspecified (7) Hypertension Current Visit: No Status: Chronic Hypertension type: primary hypertension Qualified Code(s): I10 - Essential (primary) hypertension - Plan Continue with plan of care as mentioned below: 1. Continue with antibiotics. Clinical symptoms are improved. Cultures with Enterococcus and E. coli. Continue with Augmentin and Levaquin at discharge. 2. History of hypertension continue with strict blood pressure control 3. Vascular dementia; supportive care and patient is under hospice care for that diagnosis 4. GI DVT prophylaxis Discharge Plan: [facility] Plan to discharge in: 24 Hours - Advance Directives Does patient have a Living Will: Yes Does patient have a Durable POA for Healthcare: No - Code Status/Comfort Care Code Status Assessed: Yes Code Status: DNAR Critical Care: No Time Spent Managing PTS Care (In Minutes): 30
--- NOTE | 2023-09-23 14:02 | P.PN ---
Date of Service: 09/23/23 Subjective view of Systems Patient is doing well. Awaiting to DC back to the senior care. Cultures are pending. Physical Examination - Vital Signs Reviewed - Physical Exam General: Alert, demented but following commands Respiratory: Basilar rhonchi but otherwise clear Cardiovascular: Regular rate/rhythm, Normal S1 S2, Systolic ejection murmur II/ Gastrointestinal: Normal bowel sounds, Soft and benign, Non-distended, No tenderness Musculoskeletal: No clubbing, No swelling, No tenderness Integumentary: No rashes Neurological: No focal deficits Assessment & Plan - Problems (Diagnosis) (1) Respiratory distress Current Visit: Yes Status: Acute (2) Acute CHF Current Visit: Yes Status: Acute (3) Altered mental status Current Visit: Yes Status: Acute (4) Urinary tract infection secondary to Enterococcus faecalis and E. coli Current Visit: Yes Status: Acute (5) Vascular dementia Current Visit: Yes Status: Acute (6) COPD (chronic obstructive pulmonary disease) Current Visit: No Status: Chronic COPD type: unspecified COPD Qualified Code(s): J44.9 - Chronic obstructive pulmonary disease, unspecified (7) Hypertension Current Visit: No Status: Chronic Hypertension type: primary hypertension Qualified Code(s): I10 - Essential (primary) hypertension - Plan Continue with plan of care as mentioned below: 1. Continue with antibiotics. Clinical symptoms are improved. Cultures with Enterococcus and E. coli. Continue with Augmentin and Levaquin at discharge. 2. History of hypertension continue with strict blood pressure control 3. Vascular dementia; supportive care and patient is under hospice care for that diagnosis 4. Nebs as needed 5. GI DVT prophylaxis Discharge Plan: Custodial Plan to discharge in: 24 Hours - Advance Directives Does patient have a Living Will: Yes Does patient have a Durable POA for Healthcare: No - Code Status/Comfort Care Code Status Assessed: Yes Code Status: DNAR Critical Care: No Time Spent Managing PTS Care (In Minutes): 30
[2023-09-23 22:09] VITALS: O2SAT 94
[2023-09-24] MEDS: ENOXAPARIN 40 MG/0.4 ML SQ SCH (09:41)
[2023-09-24] MEDS: METOPROLOL TAR 25 MG TAB PO SCH (09:41)
[2023-09-24] MEDS: FUROSEMIDE 40 MG/4 ML VIAL IV SCH (09:41)
[2023-09-24] MEDS: CEFEPIME 2 GM in NA CHLORIDE 0.9% 100 ML IV SCH (10:06)
[2023-09-24] MEDS ORDERED: Levofloxacin 750mg IV 750 MG/150 ML BAG IV SCH (14:00)
[2023-09-24 14:58] VITALS: BP 113/63; TEMP 97.4
--- NOTE | 2023-10-07 06:03 | P.DS ---
Discharge Date: 09/24/23 Disposition: TRANSFER TO SNF - MEDICAL Discharge Condition: GOOD Reason for Admission: Acute CHF vs. Pneumonia - Problems (1) Respiratory distress Status: Acute (2) Acute CHF Status: Acute (3) Altered mental status Status: Acute (4) Aspiration pneumonia Status: Acute (5) Vascular dementia Status: Acute (6) COPD (chronic obstructive pulmonary disease) Status: Chronic Qualifiers: COPD type: unspecified COPD Qualified Code(s): J44.9 - Chronic obstructive pulmonary disease, unspecified (7) Hypertension Status: Chronic Qualifiers: Hypertension type: primary hypertension Qualified Code(s): I10 - Essential (primary) hypertension Brief History of Present Illness: Patient 87-year-old female came to the hospital with shortness of breath. Patient was having complaints of cough and congestion. She came to the hospital from the long term. She was just here couple weeks ago with similar complaints. She is at her altered mental status. [facility] The daughter did not want to revoke hospice but she did not want her to be evaluated for her shortness of breath. I did speak to the daughter regarding patient's hospice diagnosis which she states is dementia. If patient is aspirating then that may be part of her dementia diagnosis and then her prognosis will be poor. The patient could also have CHF as patient has bilateral interstitial opacities which could be edema. Will get an echocardiogram and BNP and diurese. Patient be admitted for observation so we can get her tuned up and feeling better. Anticipate discharge in a.m. Hospital Course: Patient has done well during hospital stay. Patient's pneumonia has improved. Patient will continue with antibiotic therapy at the nursing facility. Continue with physical therapy. At this time patient is stable for discharge with outpatient follow-up. Vital Signs/Physical Exam: Temp Pulse Resp BP Pulse Ox 97.4 F 59 16 113/63 93 09/24/23 12:00 09/24/23 12:00 09/24/23 12:00 09/24/23 12:00 09/24/23 12:00 General: Alert, In no apparent distress, Oriented x3 Laboratory Data at Discharge: WBC 9.10 thou/uL (4.3-10.9) 09/21/23 06:50 Hgb 14.3 g/dL (12.0-15.0) 09/21/23 06:50 Hct 42.9 % (36.0-45.0) 09/21/23 06:50 Plt Count 136 thou/uL (152-406) L 09/21/23 06:50 PT 11.6 SECONDS (9.5-12.5) 09/19/23 14:45 INR 1.05 09/19/23 14:45 APTT 23.0 SECONDS (24.3-36.9) L 09/19/23 14:45 Sodium 140 mEq/L (136-145) 09/22/23 07:50 Potassium 3.8 mEq/L (3.5-5.1) 09/22/23 07:50 BUN 25 mg/dL (7-18) H 09/22/23 07:50 Creatinine 0.84 mg/dL (0.55-1.02) 09/22/23 07:50 Glucose 114 mg/dL (74-106) H 09/22/23 07:50 Phosphorus 2.9 mg/dL (2.5-4.9) 09/22/23 07:50 Magnesium 2.0 mg/dL (1.6-2.4) 09/22/23 07:50 Total Bilirubin 0.8 mg/dL (0.2-1.0) 09/20/23 05:05 AST 28 U/L (15-37) 09/20/23 05:05 ALT 59 U/L (13-56) H 09/20/23 05:05 Alkaline Phosphatase 73 U/L (45-117) 09/20/23 05:05 Home Medications: Aspirin [Aspirin EC 81 MG] 81 mg PO DAILY 10/29/21 Cranberry Fruit [Cranberry] 450 mg PO BID 10/29/21 Losartan Potassium [Cozaar] 100 mg PO DAILY 10/29/21 Memantine HCl [Namenda*] 10 mg PO BID 10/29/21 Omeprazole 20 mg PO BEDTIME 10/29/21 Simvastatin 10 mg PO BEDTIME 10/29/21 Acetaminophen [Tylenol*] 650 mg PO Q4HP PRN 09/06/23 Bisacodyl [Dulcolax*] 10 mg PO DAILYPRN PRN 09/06/23 Buspirone HCl [Buspar*] 5 mg PO TID 09/06/23 Carboxymethylcellulose Sodium [Artificial Tears] 2 gtt OPTH BID 09/06/23 Donepezil [Aricept*] 5 mg PO BEDTIME 09/06/23 Famotidine [Pepcid*] 20 mg PO BEDTIME 09/06/23 Furosemide [Lasix*] 40 mg PO DAILY 09/06/23 Hyoscyamine Sulfate [Levsin TAB*] 1 tab PO Q4HP PRN 09/06/23 Ipratropium/Albuterol Sulfate [Iprat-Albut 0.5-3(2.5) mg/3 ml] 3 ml IH Q6HP PRN 09/06/23 Levothyroxine [Synthroid*] 125 mcg PO DAILY 09/06/23 Loperamide [Imodium*] 2 tab PO PRN MDD 8tabs 09/06/23 Loratadine [Claritin*] 10 mg PO DAILY 09/06/23 Melatonin 5 mg PO BEDTIME 09/06/23 Ondansetron [Zofran (Odt)*] 4 mg PO Q4HP PRN 09/06/23 guaiFENesin [Guaifenesin ER] 600 mg PO Q12H 09/06/23 Albuterol Neb [Proventil 0.083% Neb Soln] 2.5 mg NEB [id number] PRN amp 09/23/23 Cefdinir [Omnicef] 6 ml PO Q12H #250 ml 09/23/23 Ipratropium Neb [Atrovent*] 0.5 mg NEB [id number] PRN amp 09/23/23 Metoprolol Tartrate [Lopressor*] 25 mg PO BIDWM tab 09/23/23 levoFLOXacin [Levaquin] 500 mg PO DAILY #10 tab 09/23/23 predniSONE [Deltasone] 20 mg PO BID #11 tab 09/23/23 New Medications: levoFLOXacin [Levaquin] 500 mg PO DAILY #10 tab Cefdinir [Omnicef] 6 ml PO Q12H #250 ml predniSONE [Deltasone] 20 mg PO BID #11 tab Physician Discharge Instructions: -DC IV and [facility] to [facility] -Follow-up with PCP in 1 to 2 weeks -Please call Dr. Barcenas at [phone] if any questions regarding hospital stay -Please call nursing station at [phone] if any nursing or medication questions -Return to the emergency room if symptoms worsen -Family will decide at a later time whether or not they want to proceed back with hospice care. Diet: Low sodium Activity: Fall precautions Followup: NONE,NONE [Primary Care Provider] - Time spent managing pt's care (in minutes): 35
== END 2023-09-24 16:45 | DRG 177 ==
LOC: ER 10:19 → ERHOLD 14:01 → 4TH 20:48 → OBSVTOIN 09-22 11:22
PROVIDERS: ADMIT Hospitalist; ATTEND Hospitalist
DX: J69.0 Pneumonitis due to inhalation of food and vomit (principal); I50.31 Acute diastolic (congestive) heart failure; N39.0 Urinary tract infection, site not specified; R78.81 Bacteremia; E78.5 Hyperlipidemia, unspecified; I10 Essential (primary) hypertension; E03.9 Hypothyroidism, unspecified; J44.9 Chronic obstructive pulmonary disease, unspecified; F01.50 Vascular dementia, unspecified severity, without behavioral disturbance, psychotic disturbance, mood disturbance, and anxiety; B95.2 Enterococcus as the cause of diseases classified elsewhere; B96.20 Unspecified Escherichia coli [E. coli] as the cause of diseases classified elsewhere; R06.03 Acute respiratory distress; R77.8 Other specified abnormalities of plasma proteins; Z66 Do not resuscitate; Z88.1 Allergy status to other antibiotic agents; Z88.7 Allergy status to serum and vaccine; Z11.52 Encounter for screening for COVID-19; Z79.82 Long term (current) use of aspirin; Z79.890 Hormone replacement therapy; Z79.899 Other long term (current) drug therapy; Z96.653 Presence of artificial knee joint, bilateral; I11.0 Hypertensive heart disease with heart failure
CPT/HCPCS: 36415; 70450; 71045; 71250; 80048; 80053; 81001; 83605; 83735; 83880; 84100; 84132; 84145; 84484; 85025; 85610; 85730; 87040; 87077; 87086; 87088; 87186; 87205; 87635; 93005; 93306; 96374; 96375; 99285; G0378; J0692; J0696; J1650; J1940; J2543; J7040; J7050

== ENCOUNTER 2024-03-18 09:04 | Inpatient (IN) | payer OTHER ==
[2024-03-18] MEDS ORDERED: METHYLPREDNISOLONE 125 MG INJ ONE (09:23)
[2024-03-18] MEDS ORDERED: LEVALBUTEROL 1.25 MG/3 ML NEB ONE (09:23)
[2024-03-18] MEDS ORDERED: NA CHLORIDE 0.9% 500 ML ONE (09:24)
[2024-03-18 10:10] LABS: Absolute Eosinophils 0.1 K/uL (0-0.5); Absolute Lymphocytes (CBC) 0.9 K/uL (0.7-4.9); Absolute Monocytes 0.6 K/uL (0.1-1.3); Absolute Neutrophil 3.9 K/uL (1.8-8.0); Basophils % 0.2 % (0-1.3); Eosinophils % 1.1 % (0-4.4); Hematocrit 41.5 % (36.0-45.0); Hemoglobin 13.2 g/dL (12.0-15.0); Lymphocytes % 16.7 % (15.3-44.8); MCH 29.5 pg (27.0-35.0); MCHC 31.9 g/dL (32.0-36.0); MCV 92.5 fL (80-100); MPV 8.7 fL (7.6-11.3); Nucleated Red Blood Cells % 0.1 % (0-0); Platelets 145 thou/uL (152-406); RBC Red Blood Cell Count 4.49 M/uL (3.86-4.86); Red Cell Distribution Width 15.9 % (12.1-15.2)
[2024-03-18 10:13] LABS: PT Prothrombin Time 14.3 SECONDS (9.5-12.5); PTT, Activated Partial Thromb 29.7 SECONDS (24.3-36.9); Protime INR 1.31
[2024-03-18 10:19] LABS: Albumin 2.8 g/dL (3.4-5.0); Albumin/Globulin Ratio 0.8 (1.1-1.8); Anion Gap 3.7 mEq/L (5.0-15.0); Bilirubin Total 0.6 mg/dL (0.2-1.0); Globulin 3.7 g/dL (2.3-3.5); Potassium 3.7 mEq/L (3.5-5.1); Protein, Total 6.5 g/dL (6.4-8.2)
[2024-03-18] MEDS ORDERED: CEFTRIAXONE 1000 MG/VIAL ONE (10:31)
[2024-03-18] MEDS ORDERED: AZITHROMYCIN 500 MG INJ IVPB ONE ×2 (10:31→10:43)
[2024-03-18] MEDS ORDERED: NA CHLORIDE 0.9% 250 ML ONE (10:32)
[2024-03-18] MEDS ORDERED: NA CHLORIDE 0.9% 0 ML ONE (10:32)
[2024-03-18 10:37] LABS: SARS-CoV-2 Antigen CONTROL BLUE LINE VIS/BG OK; SARS-CoV-2 Antigen Rapid Res Negative (Negative)
--- NOTE | 2024-03-18 10:41 | RAD REPORT ---
EXAM DESCRIPTION: RADChest Single View03/18/2024 9:38 am CLINICAL HISTORY: Fever;Cough COMPARISON: Chest Single View dated 09/21/2023; Chest Single View dated 09/19/2023; Chest Single View dated 09/05/2023; Chest Single View dated 02/05/2022 TECHNIQUE: Portable AP view of the chest. FINDINGS: Patchy central predominant airspace opacities are somewhat progressive since the prior exa m. No pneumothorax or effusion. The cardiomediastinal contours are unremarkable. IMPRESSION: Patchy central predominant airspace opacities are somewhat progressive since the prior e xam, may reflect central venous congestion or pneumonia.
--- NOTE | 2024-03-18 12:25 | EDPHYS ---
Physician Documentation [facility] Name: Angela Alston Age: 88 yrs Sex: Female : 1935 Arrival Date: 03/18/2024 Time: 09:04 Bed 17 Private MD: ED Physician Pk Ferreira HPI: 03/18 09:14 This 88 yrs old Female presents to ER via Unassigned with complaints of fever. rn 09:14 The patient reports fever, that was measured at 102.9 degrees Fahrenheit. Onset: The rn symptoms/episode began/occurred 2 day(s) ago. Modifying factors: there are no obvious modifying factors. Severity of symptoms: At their worst the symptoms were moderate in the emergency department the symptoms are unchanged. The patient has not experienced similar symptoms in the past. The patient has not recently seen a physician. EMS reports patient picked up from long term for fever and altered mental status, patient being treated for pneumonia currently for a few days, not improving. Patient with altered mental status, blood pressure in the 90s, oxygen in the 80s. Patient has history of COPD. Patient denies pain.. Historical: - Allergies: 09:18 Macrobid; ph 09:18 Tetanus Vaccines \T\ Toxoid; ph - PMHx: 09:18 Chronic obstructive lung disease; Dementia; depressive disorder; Hyperlipidemia; ph Hypertensive disorder; Hypothyroidism; Transient cerebral ischemia; - Immunization history:: Adult Immunizations unknown. - Infectious Disease History:: Denies. - Family history:: not pertinent. - Social history:: Smoking status: unknown. - Hospitalizations: : No recent hospitalization is reported. ROS: 09:14 Constitutional: Positive for fever and chills Cardiovascular: Negative for chest pain, rn palpitations Respiratory: Positive for cough and shortness of breath Abdomen/GI: Negative for abdominal pain, nausea, vomiting, diarrhea, and constipation, Back: Negative for injury and pain, : Negative for injury, bleeding, discharge, and swelling, MS/Extremity: Negative for injury and deformity, Skin: Negative for injury, rash, and discoloration, Neuro: Positive for generalized weakness and malaise Exam: 09:14 Constitutional: This is a well developed, well nourished patient who is awake, alert, rn mild tachypnea Cardiovascular: Regular rate and rhythm. No pulse deficits. Respiratory: Mild tachypnea, expiratory wheezing, no retractions Abdomen/GI: Soft, non-tender MS/ Extremity: Pulses equal, no cyanosis. Neuro: Awake and alert, GCS 15 oriented to person but not place or time 09:33 ECG was reviewed by the Attending Physician. rn Vital Signs: 09:15 BP 104 / 49; Pulse 76; Resp 18; Temp 99(O); Pulse Ox 96% on 2 lpm NC; ph 09:52 BP 95 / 44; Pulse 70; Resp 18; Pulse Ox 98% on Nebulizer Mask; Weight 69.4 kg; ph 10:24 BP 98 / 56; Pulse 68; Resp 18; Temp 98.7; Pulse Ox 100% on 2 lpm NC; ph 10:52 BP 107 / 82; Pulse 71; Resp 18; Pulse Ox 98% on 2 lpm NC; ph 11:34 BP 116 / 67; Pulse 69; Resp 18; Pulse Ox 98% on 2 lpm NC; ph 13:06 BP 118 / 63; Pulse 67; Resp 18; Pulse Ox 98% on 1 lpm NC; ph 14:00 BP 108 / 64; Pulse 72; Resp 18; Pulse Ox 97% on 2 lpm NC; ph MDM: 09:10 Patient medically screened. rn 12:23 Differential diagnosis: viral Infection, bacterial infection, URI, pneumonia. Data rn reviewed: vital signs, nurses notes, lab test result(s), EKG, radiologic studies, plain films, and as a result, I will admit patient. Consideration of Admission/Observation Patient was admitted/placed on observation. Escalation of care including admission/observation considered. Management of patient was discussed with the following:. Counseling: I had a detailed discussion with the patient and/or guardian regarding the historical points, exam findings, and any diagnostic results supporting the discharge/admit diagnosis, lab results, radiology results, the need for further work-up and treatment in the hospital. ED course: I personally spent 35 minutes engaged in work directly related to the individual patient's care. This does not include any time spent performing procedures. The patient has been deemed critically ill because of hypotension from pneumonia and failure of outpatient therapy, review of records and organization of hospitalization.. 03/18 09:11 Order name: Blood Culture Adult (2) rn 03/18 09:11 Order name: CBC with Diff; Complete Time: 10:45 rn 03/18 09:11 Order name: CMP; Complete Time: 10:45 rn 03/18 09:11 Order name: Lactate w/ 2H reflex if indic.; Complete Time: 10:16 rn 03/18 09:11 Order name: Protime (+inr); Complete Time: 10:16 rn 03/18 09:11 Order name: Ptt, Activated; Complete Time: 10:16 rn 03/18 09:12 Order name: Urinalysis w/ reflexes rn 03/18 09:12 Order name: SARS RAPID; Complete Time: 10:45 rn 03/18 09:12 Order name: Flu; Complete Time: 10:45 rn 03/18 12:43 Order name: Urinalysis w/ reflexes EDMS 03/18 12:43 Order name: Basic Metabolic Panel EDMS 03/18 12:43 Order name: Basic Metabolic Panel EDMS 03/18 12:43 Order name: Basic Metabolic Panel EDMS 03/18 12:43 Order name: Basic Metabolic Panel EDMS 03/18 12:43 Order name: Basic Metabolic Panel EDMS 03/18 12:43 Order name: CBC with Automated Diff EDMS / 12:43 Order name: CBC with Automated Diff EDMS / 12:43 Order name: CBC with Automated Diff EDMS /28 12:43 Order name: CBC with Automated Diff EDMS /28 12:43 Order name: CBC with Automated Diff EDMS 05/28 12:43 Order name: Magnesium EDMS 03/18 12:43 Order name: Magnesium EDMS 03/18 12:43 Order name: Magnesium EDMS 03/18 12:43 Order name: Magnesium EDMS 03/18 12:43 Order name: Magnesium EDMS 03/18 12:43 Order name: NT PRO-BNP EDMS 03/18 12:43 Order name: NT PRO-BNP EDMS 03/18 12:43 Order name: NT PRO-BNP EDMS 03/18 12:43 Order name: NT PRO-BNP EDMS 03/18 09:11 Order name: Chest Single View XRAY; Complete Time: 10:45 rn 03/18 09:11 Order name: EKG; Complete Time: 09:12 rn 03/18 09:11 Order name: Accucheck; Complete Time: 09:51 rn 03/18 09:11 Order name: Cardiac monitoring; Complete Time: 09:35 rn 03/18 09:11 Order name: EKG - Nurse/Tech; Complete Time: : rn 03/18 09:11 Order name: IV Saline Lock - Large Bore; Complete Time: rn 03/18 09:11 Order name: Labs collected and sent; Complete Time: rn 03/18 09:11 Order name: O2 Per Protocol; Complete Time: rn 03/18 09:11 Order name: O2 Sat Monitoring; Complete Time: rn 03/18 09:11 Order name: Vital Signs; Complete Time: rn EC:33 Rate is 70 beats/min. Rhythm is regular. QRS [place] is Normal. MN interval is normal. QRS rn interval is normal. QT interval is normal. No Q waves. T waves are Normal. No ST changes noted. Clinical impression: NSR w/ Non-specific ST/T Changes. Interpreted by me. Reviewed by me. Administered Medications: 09:50 Drug: MethylPrednisoLONE IVP 125 mg IVP once Route: IVP; Site: right forearm; ph 11:35 Follow up: Response: No adverse reaction ph 09:50 Drug: Levalbuterol Inhalation 1.25 mg Inhalation once Route: Inhalation; ph 11:35 Follow up: Response: No adverse reaction ph 09:50 Drug: NS 0.9% IV 500 ml IV at bolus once Route: IV; Rate: bolus; Site: right forearm; ph 10:22 Follow up: Response: No adverse reaction; IV Status: Completed infusion; IV Intake: ph 500ml 10:22 Drug: NS 0.9% IV 500 ml IV at bolus once Route: IV; Rate: bolus; Site: right forearm; ph 10:45 Follow up: Response: No adverse reaction; IV Status: Completed infusion ph 10:51 Drug: Rocephin IV 1 grams IV at calculated rate once; Given slow IV push per pharmacy ph instructions Route: IV; Rate: calculated rate; Site: right forearm; 11:20 Follow up: Response: No adverse reaction; IV Status: Completed infusion ph 11:29 Drug: Zithromax IVPB 500 mg IVPB once over 1 hrs; mix in 250 mL NS Route: IVPB; Infused ph Over: 1 hrs; Site: right forearm; 12:30 Follow up: Response: No adverse reaction; IV Status: Completed infusion; IV Intake: ph 250ml Disposition Summary: 03/18/24 12:25 Hospitalization Ordered Notes: Hospitalization Status: Inpatient Admission rn Provider: Ricci Marsh rn Condition: Stable rn Problem: new rn Symptoms: have improved rn Bed/Room Type: Standard rn Location: Telemetry/MedSurg (Inpatient)(03/18/24 15:34) ll1 Room Assignment: [facility](03/18/24 15:56) [facility] Diagnosis - Pneumonia, unspecified organism rn - Hypoxemia rn - Hypotension, unspecified rn Forms: - Medication Reconciliation Form rn - SBAR form rn - Leadership Thank You Letter fall intern time excluding procedures: 12:23 Critical care time: Bedside Care: 35 minutes. Total time: 35 minutes rn Signatures: Dispatcher [employer] EDMS Pk Ferreira MD MD rn Martinez, Eric em1 Hall, Patricia RN RN Federico Blue RN Radha Obrien, RN RN [facility]: (The following items were deleted from the chart) 09:12 09:12 BLOOD CULTURE*+BA.LAB.BRZ ordered. EDMS EDMS 09:12 09:12 CBC+H.LAB.BRZ ordered. EDMS EDMS 09:12 09:12 COMPREHENSIVE METABOLIC PANEL+C.LAB.BRZ ordered. EDMS EDMS 09:12 09:12 LACTATE+C.LAB.BRZ ordered. EDMS EDMS 09:12 09:12 PROTIME (+INR)+COAG.LAB.BRZ ordered. EDMS EDMS 09:12 09:12 PTT, ACTIVATED+COAG.LAB.BRZ ordered. EDNM EDMS 14:36 12:25 Telemetry/MedSurg (Inpatient) rn em1 14:36 12:25 rn em1 15:34 14:36 [facility] ER HOLD em1 ll1 15:34 14:36 ERHOLD- em1 ll1 15:39 15:34 415 ll1 ja1 15:47 15:39 ja1 ja1 15:56 15:47 207 ja1 ja1
--- NOTE | 2024-03-18 12:25 | ER ---
Nurse's Notes [facility] Name: Angela Alston Age: 88 yrs Sex: Female : 1935 Arrival Date: 03/18/2024 Time: 09:04 Bed 17 Private MD: Diagnosis: Pneumonia, unspecified organism;Hypoxemia;Hypotension, unspecified Presentation: 03/18 09:15 Chief complaint: EMS states: Pt from [facility], currently being treated for pneumonia w/ Alejandro, this morning had a fever of 102.9, AMS,BP also low at 90s systolic, Spo2 89% RA, uses oxygen for COPD, rectal tylenol given by nursing facility, 20G to R wrist. Coronavirus screen: Vaccine status: Patient reports receiving the 2nd dose of the covid vaccine. Ebola Screen: No symptoms or risks identified at this time. Initial Sepsis Screen: Does the patient meet any 2 criteria? No. Patient's initial sepsis screen is negative. Does the patient have a suspected source of infection? No. Patient's initial sepsis screen is negative. Risk Assessment: Do you want to hurt yourself or someone else? Patient reports no desire to harm self or others. Onset of symptoms was March 18, 2024. 09:15 Method Of Arrival: EMS: [facility] 09:15 Acuity: KANDACE 2 ph Triage Assessment: 09:18 General: Appears in no apparent distress. Behavior is calm, cooperative, drowsy, ph Reports fever for. Pain: Denies pain. Neuro: Level of Consciousness is awake, obeys commands, lethargic, Oriented to person. Respiratory: Reports cough that is Airway is patent Respiratory effort is even, unlabored, Breath sounds are coarse bilaterally. Historical: - Allergies: 09:18 Macrobid; ph 09:18 Tetanus Vaccines \T\ Toxoid; ph - PMHx: 09:18 Chronic obstructive lung disease; Dementia; depressive disorder; Hyperlipidemia; ph Hypertensive disorder; Hypothyroidism; Transient cerebral ischemia; - Immunization history:: Adult Immunizations unknown. - Infectious Disease History:: Denies. - Family history:: not pertinent. - Social history:: Smoking status: unknown. - Hospitalizations: : No recent hospitalization is reported. Screenin:23 [facility] ED Fall Risk Assessment (Adult) History of falling in the last 3 months, ph including since admission No falls in past 3 months (0 pts) Confusion or Disorientation Yes (5 pts) Intoxicated or Sedated No (0 pts) Impaired Gait Yes (1 pt) Mobility Assist Device Used Yes (1 pt) Altered Elimination Yes (1 pt) Score/Fall Risk Level 3 or more points = High Risk Oriented to surroundings, Maintained a safe environment, Used ambulatory aids as needed (educated on \T\ assisted with). Abuse screen: Denies threats or abuse. Denies injuries from another. Nutritional screening: No deficits noted. Tuberculosis screening: No symptoms or risk factors identified. Assessment: 10:00 General: Appears in no apparent distress. Behavior is calm, cooperative. Pain: Denies ph pain. Neuro: Level of Consciousness is awake, obeys commands, lethargic, Oriented to person. Cardiovascular: Capillary refill < 3 seconds in bilateral fingers Patient's skin is warm and dry. Respiratory: Reports cough that is Airway is patent Respiratory effort is even, unlabored, Breath sounds are coarse bilaterally. GI: No signs and/or symptoms were reported involving the gastrointestinal system. Derm: Skin is fragile, is thin, Skin is pink, warm \T\ dry. 11:33 Reassessment: Patient appears in no apparent distress at this time. No changes from previously documented assessment. Patient and/or family updated on plan of care and expected duration. Pain level reassessed. Vital Signs: 09:15 BP 104 / 49; Pulse 76; Resp 18; Temp 99(O); Pulse Ox 96% on 2 lpm NC; ph 09:52 BP 95 / 44; Pulse 70; Resp 18; Pulse Ox 98% on Nebulizer Mask; Weight 69.4 kg; ph 10:24 BP 98 / 56; Pulse 68; Resp 18; Temp 98.7; Pulse Ox 100% on 2 lpm NC; ph 10:52 BP 107 / 82; Pulse 71; Resp 18; Pulse Ox 98% on 2 lpm NC; ph 11:34 BP 116 / 67; Pulse 69; Resp 18; Pulse Ox 98% on 2 lpm NC; ph 13:06 BP 118 / 63; Pulse 67; Resp 18; Pulse Ox 98% on 1 lpm NC; ph 14:00 BP 108 / 64; Pulse 72; Resp 18; Pulse Ox 97% on 2 lpm NC; ph Vitals: 10:24 Cardiac Rhythm Assessment Sinus rhythm. ED Course: 09:10 Patient arrived in ED. rn 09:10 Pk Ferreira MD is Attending Physician. rn 09:14 Janie Smith, KYE is Primary Nurse. ph 09:18 Triage completed. ph 09:18 Arm band placed on Patient placed in an exam room, on a stretcher, on oxygen, on ph compliance monitor, on pulse oximetry. 09:35 EKG done, by ED staff, reviewed by Pk Ferreira MD. [id number] 09:40 Chest Single View XRAY In Process Unspecified. EDMS 09:40 Initial lab(s) drawn, by me, sent to lab. First set of blood cultures drawn by me, ph Second set of blood cultures drawn by me, COVID swab sent to lab. Flu and/or RSV swab sent to lab. 09:50 Flu Sent. ph 09:50 SARS RAPID Sent. ph 09:51 Blood Culture Adult (2) Sent. ph 09:51 CBC with Diff Sent. ph 09:51 CMP Sent. ph 09:51 Lactate w/ 2H reflex if indic. Sent. ph 09:51 Protime (+inr) Sent. ph 09:51 Ptt, Activated Sent. ph 09:51 Inserted saline lock: 22 gauge in right forearm, using aseptic technique. Blood ph collected. 10:23 Patient has correct armband on for positive identification. Placed in gown. Bed in low ph position. Call light in reach. Side rails up X2. Client placed on continuous cardiac and pulse oximetry monitoring. NIBP monitoring applied. compliance monitor on. Door closed. Noise minimized. Lights dimmed. Warm blanket given. Pillow given. 11:34 No provider procedures requiring assistance completed. ph 12:24 Toi Marsh MD is Hospitalizing Provider. rn 12:24 Ricci Marsh MD is Hospitalizing Provider. rn 14:45 Patient admitted, IV remains in place. ph Administered Medications: 09:50 Drug: MethylPrednisoLONE IVP 125 mg IVP once Route: IVP; Site: right forearm; ph 11:35 Follow up: Response: No adverse reaction ph 09:50 Drug: Levalbuterol Inhalation 1.25 mg Inhalation once Route: Inhalation; ph 11:35 Follow up: Response: No adverse reaction ph 09:50 Drug: NS 0.9% IV 500 ml IV at bolus once Route: IV; Rate: bolus; Site: right forearm; ph 10:22 Follow up: Response: No adverse reaction; IV Status: Completed infusion; IV Intake: ph 500ml 10:22 Drug: NS 0.9% IV 500 ml IV at bolus once Route: IV; Rate: bolus; Site: right forearm; ph 10:45 Follow up: Response: No adverse reaction; IV Status: Completed infusion ph 10:51 Drug: Rocephin IV 1 grams IV at calculated rate once; Given slow IV push per pharmacy ph instructions Route: IV; Rate: calculated rate; Site: right forearm; 11:20 Follow up: Response: No adverse reaction; IV Status: Completed infusion ph 11:29 Drug: Zithromax IVPB 500 mg IVPB once over 1 hrs; mix in 250 mL NS Route: IVPB; Infused ph Over: 1 hrs; Site: right forearm; 12:30 Follow up: Response: No adverse reaction; IV Status: Completed infusion; IV Intake: ph 250ml Medication: 11:34 VIS not applicable for this client. ph Intake: 10:22 IV: 500ml; Total: 500ml. ph 12:30 IV: 250ml; Total: 750ml. ph Outcome: 12:25 Decision to Hospitalize by Provider. rn 14:45 Admitted to Med/surg accompanied by tech, via stretcher, with oxygen, with chart, ph 14:45 Condition: stable 14:45 Instructed on the need for admit, 16:47 Patient left the ED. ph Signatures: Dispatcher [employer] Pk Contreras MD MD rn Hall, Patricia, RN RN ph Reddick, Radha jr
--- NOTE | 2024-03-18 12:31 | P.HP ---
Certification for Inpatient Patient admitted to: Inpatient With expected LOS: <2 Midnights Practitioner: I am a practitioner with admitting privileges, knowledge of patient current condition, hospital course, and medical plan of care. Services: Services provided to patient in accordance with Admission requirements found in Title 42 Section 412.3 of the Code of Federal Regulations Patient History Date of Service: 03/18/24 Reason for admission: Pneumonia History of Present Illness: 88-year-old female with a past medical history Chronic obstructive lung disease; Dementia; depressive disorder; Hyperlipidemia; Hypertensive disorder; Hypothyroidism; Transient cerebral ischemia [facility] emergency [facility] with fever 102.9, she reports symptoms started 2 days ago getting progressively worse. Patiently recently treated with pneumonia, is getting progressively worse, reports associated confusion. Hypotension systolic blood pressure in the 90s, oxygen in the 80s, history of COPD. Fever is associated with chills, productive cough, no reported chest pain, no reported nausea vomiting diarrhea. Plan to admit for pneumonia, failed outpatient treatment antibiotics, hypotension. Blood pressure improved with IV fluids, IV antibiotics, DuoNebs, IV Solu-Medrol. Treated with IV Rocephin and Zithromax, EKG 3 Rate is 70 beats/min. Rhythm is regular. QRS [place] is Normal. LA interval is normal. QRS interval is normal. QT interval is normal. No Q waves. T waves are Normal. No ST changes noted. Clinical impression: NSR w/ Non-specific ST/T Changes, chest x-ray IMPRESSION: Patchy central predominant airspace opacities are somewhat progressive since the prior exam, may reflect central venous congestion or pneumonia. Allergies nitrofurantoin [From Macrobid] Allergy (Verified 10/29/21 22:11) Hives/Rash Tetanus Vaccines and Toxoid Allergy (Verified 10/29/21 22:11) unknown Home Medications: Aspirin [Aspirin EC 81 MG] 81 mg PO DAILY 10/29/21 Cranberry Fruit [Cranberry] 450 mg PO BID 10/29/21 Losartan Potassium [Cozaar] 100 mg PO DAILY 10/29/21 Memantine HCl [Namenda*] 10 mg PO BID 10/29/21 Omeprazole 20 mg PO BEDTIME 10/29/21 Simvastatin 10 mg PO BEDTIME 10/29/21 Acetaminophen [Tylenol*] 650 mg PO Q4HP PRN 09/06/23 Bisacodyl [Dulcolax*] 10 mg PO DAILYPRN PRN 09/06/23 Buspirone HCl [Buspar*] 5 mg PO TID 09/06/23 Carboxymethylcellulose Sodium [Artificial Tears] 2 gtt OPTH BID 09/06/23 Donepezil [Aricept*] 5 mg PO BEDTIME 09/06/23 Famotidine [Pepcid*] 20 mg PO BEDTIME 09/06/23 Furosemide [Lasix*] 40 mg PO DAILY 09/06/23 Hyoscyamine Sulfate [Levsin TAB*] 1 tab PO Q4HP PRN 09/06/23 Ipratropium/Albuterol Sulfate [Iprat-Albut 0.5-3(2.5) mg/3 ml] 3 ml IH Q6HP PRN 09/06/23 Levothyroxine [Synthroid*] 125 mcg PO DAILY 09/06/23 Loperamide [Imodium*] 2 tab PO PRN MDD 8tabs 09/06/23 Loratadine [Claritin*] 10 mg PO DAILY 09/06/23 Melatonin 5 mg PO BEDTIME 09/06/23 Ondansetron [Zofran (Odt)*] 4 mg PO Q4HP PRN 09/06/23 guaiFENesin [Guaifenesin ER] 600 mg PO Q12H 09/06/23 Albuterol Neb [Proventil 0.083% Neb Soln] 2.5 mg NEB [id number] PRN amp 09/23/23 Cefdinir [Omnicef] 6 ml PO Q12H #250 ml 09/23/23 Ipratropium Neb [Atrovent*] 0.5 mg NEB [id number] PRN amp 09/23/23 Metoprolol Tartrate [Lopressor*] 25 mg PO BIDWM tab 09/23/23 levoFLOXacin [Levaquin] 500 mg PO DAILY #10 tab 09/23/23 predniSONE [Deltasone] 20 mg PO BID #11 tab 09/23/23 - Past Medical/Surgical History Diabetic: No -: Dementia -: Hypothyroidism -: Hypertension -: CAD -: COPD -: -: Bilateral knee replacements -: Back surgery Psychosocial/ Personal History: skilled nursing resident - Family History Mother -: Diabetes Brother -: Diabetes - Social History Alcohol use: No CD- Drugs: No Caffeine use: Yes Review of Systems per HPI Physical Examination - Physical Exam General: Mild distress (lethargic), Confused, Other Neck: Supple, 2+ carotid pulse no bruit Respiratory: Crackles/rales, Expiratory wheezes, Rhonchi/gurgles, Other (Tachypnea) Cardiovascular: Normal pulses, Regular rate/rhythm Capillary refill: <2 Seconds Gastrointestinal: Normal bowel sounds, Soft and benign Musculoskeletal: No clubbing, No swelling Integumentary: No significant lesion, No tenderness/swelling Neurological: Normal speech, Normal strength at 5/5 x4 extr Lymphatics: No axilla or inguinal lymphadenopathy - Studies Laboratory Data (last 24 hrs) 03/18/24 03/18/24 03/18/24 09:40 09:40 09:40 WBC 5.40 Hgb 13.2 Hct 41.5 Plt Count 145 L PT 14.3 H INR 1.31 APTT 29.7 Sodium 140 Potassium 3.7 BUN 20 H Creatinine 1.25 H Glucose 92 Total Bilirubin 0.6 AST 19 ALT 15 Alkaline Phosphatase 73 Microbiology Data (last 24 hrs): 03/18/24 09:33 Nasopharnyx Influenza Type A Antigen Screen - Final 03/18/24 09:33 Nasopharnyx Influenza Type B Antigen Screen - Final Assessment and Plan - Plan Assessment plan Chronic obstructive lung disease exacerbation Acute hypoxic respiratory failure secondary to pneumonia versus COPD exacerbation Pneumonia Hypoxia Hypotension Failed outpatient treatment of antibiotic Admit to [facility], IV fluids, IV antibiotics, hypotension resolved with IV fluids, Zithromax and ceftriaxone, Solu-Medrol Nebs, O2 keep sats greater than 92% resents to the emergency room from the [facility] with fever 102.9, she reports symptoms started 2 days ago getting progressively worse. Patiently recently treated with pneumonia, is getting progressively worse, reports associated confusion. Hypotension systolic blood pressure in the 90s, oxygen in the 80s, history of COPD. Fever is associated with chills, productive cough, no reported chest pain, no reported nausea vomiting diarrhea. Treated with IV Rocephin and Zithromax, EKG 3 Rate is 70 beats/min. Rhythm is regular. QRS [place] is Normal. LA interval is normal. QRS interval is normal. QT interval is normal. No Q waves. T waves are Normal. No ST changes noted. Clinical impression: NSR w/ Non-specific ST/T Changes, chest x-ray IMPRESSION: Patchy central predominant airspace opacities are somewhat progressive since the prior exam, may reflect central venous congestion or pneumonia. History of dementia depressive disorder Resume appropriate home meds hyperlipidemia Hypertensive disorder Hypothyroidism Transient cerebral ischemia Fall precautions, resume appropriate home meds Full code Cardiac diet DVT SCDs Disposition return to nursing facility after discharge Discharge Plan: Home - Advance Directives Does patient have a Living Will: Yes Does patient have a Durable POA for Healthcare: No - Code Status/Comfort Care Code Status: Full Code Critical Care: No Time Spent Managing Pts Care (In Minutes): 55
[2024-03-18] MEDS ORDERED: IPRATROPIUM BROM 0.5MG/2.5ML NEB PRN (12:37)
[2024-03-18] MEDS ORDERED: ACETAMINOPHEN 500 MG TAB PO PRN (12:37)
[2024-03-18] MEDS ORDERED: ONDANSETRON 4 MG/2 ML VIAL IV PRN (12:37)
[2024-03-18] MEDS ORDERED: ALBUTEROL 2.5 MG/3 ML NEB SOL NEB PRN (12:37)
[2024-03-18] MEDS: NA CHLORIDE 0.9% 1,000 ML IV SCH (13:00)
[2024-03-18] MEDS: FUROSEMIDE 40 MG/4 ML VIAL IV SCH (13:11)
--- NOTE | 2024-03-18 14:09 | EKG ---
Test Date: 2024-03-18 Test Time: 09:30:56 Rn On Site: JUAN MEASUREMENT RESULTS: Intervals: Rate: 70 [place]: 160 QRSD: 88 QT: 376 QTc: 406 [place]: P: 52 [place]: 160 QRS: -9 T: 20 INTERPRETIVE STATEMENTS: Normal sinus rhythm Minimal voltage criteria for LVH, may be normal variant Borderline ECG Compared to ECG 09/19/2023 11:38:58 Left ventricular hypertrophy now present Left-axis deviation no longer present Electronically Signed On 03-18-24 14:09:22 CDT by Gilberto Mendoza
[2024-03-18 16:29] VITALS: BMI 26.2
[2024-03-18] MEDS ORDERED: NA CHLORIDE 0.9% 1,000 ML ONE (16:42)
[2024-03-18] MEDS: PIPER TAZO 3.375 GM in NA CHLORIDE 0.9% 100 ML IV SCH (18:09)
[2024-03-18] MEDS: METHYLPREDNISOLONE 125 MG INJ IV SCH (18:10)
--- NOTE | 2024-03-19 07:44 | P.PN ---
Subjective Date of Service: 03/20/24 Chief Complaint: Pneumonia Lethargic yesterday, speech eval ordered, recommend soft diet, think liq more alert today, BNP, echo ordered for today, to eval for heart failure, adm for PNA, 02 echo ordered on Zosyn on Zosyn, azithromycin - Physical Exam General: AAX1 confused Neck: Supple, 2+ carotid pulse no bruit Respiratory: Crackles/rales, Cardiovascular: Normal pulses, Regular rate/rhythm Capillary refill: <2 Seconds Gastrointestinal: Normal bowel sounds, Soft and benign Musculoskeletal: No clubbing, No swelling Integumentary: No significant lesion, No tenderness/swelling Neurological: Normal speech, Normal strength at 5/5 x4 extr Lymphatics: No axilla or inguinal lymphadenopathy Review of Systems Per HPI Physical Examination - Vital Signs Temperature: 97.6 F Blood Pressure: 129/65 Pulse: 54 Respirations: 18 Pulse Ox (%): 97 - Studies Laboratory Data (last 24 hrs) 03/18/24 03/18/24 03/18/24 09:40 09:40 09:40 WBC 5.40 Hgb 13.2 Hct 41.5 Plt Count 145 L PT 14.3 H INR 1.31 APTT 29.7 Sodium 140 Potassium 3.7 BUN 20 H Creatinine 1.25 H Glucose 92 Total Bilirubin 0.6 AST 19 ALT 15 Alkaline Phosphatase 73 Microbiology Data (last 24 hrs): 03/18/24 09:33 Nasopharnyx Influenza Type A Antigen Screen - Final 03/18/24 09:33 Nasopharnyx Influenza Type B Antigen Screen - Final Assessment And Plan - Plan Assessment plan Chronic obstructive lung disease exacerbation Acute hypoxic respiratory failure secondary to pneumonia versus COPD exacerbation Pneumonia Hypoxia Hypotension Failed outpatient treatment of antibiotic Admit to [facility], IV fluids, IV antibiotics, hypotension resolved with IV fluids, Zithromax and ceftriaxone, Solu-Medrol Nebs, O2 keep sats greater than 92% resents to the emergency room from the shelter with fever 102.9, she reports symptoms started 2 days ago getting progressively worse. Patiently recently treated with pneumonia, is getting progressively worse, reports associated confusion. Hypotension systolic blood pressure in the 90s, oxygen in the 80s, history of COPD. Fever is associated with chills, productive cough, no reported chest pain, no reported nausea vomiting diarrhea. Treated with IV Rocephin and Zithromax, EKG 3 Rate is 70 beats/min. Rhythm is regular. QRS [place] is Normal. [place] interval is normal. QRS interval is normal. QT interval is normal. No Q waves. T waves are Normal. No ST changes noted. Clinical impression: NSR w/ Non-specific ST/T Changes, chest x-ray IMPRESSION: Patchy central predominant airspace opacities are somewhat progressive since the prior exam, may reflect central venous congestion or pneumonia. Acute hypoxic being treated for failed outpatient pneumonia Mild pulmonary hypertension Aortic stenosis Echo ordered, BNP ordered speech eval ordered for lethargic-, swallow eval Fluid restriction ECHO COMMENTS: 1. NORMAL LEFT VENTRICULAR SYSTOLIC FUNCTION, EJECTION FRACTION 55-60%, NORMAL WALL MOTION 2. GRADE I DIASTOLIC DYSFUNCTION 3. SEVERE AORTIC STENOSIS (AORTIC VALVE AREA 0.8 CENTIMETERS SQUARED, MEAN GRADIENT 40 mmHg) 4. MILD PULMONARY HYPERTENSION (RIGHT VENTRICULAR SYSTOLIC PRESSURE 35-40 mmHg) History of dementia depressive disorder Resume appropriate home meds hyperlipidemia Hypertensive disorder Hypothyroidism Transient cerebral ischemia Fall precautions, resume appropriate home meds DO NOT RESUSCITATE Cardiac diet DVT SCDs Disposition return to nursing facility after discharge Discharge Plan: Half-Way - Code Status/Comfort Care Code Status: Do Not Attempt Resuscitat Time Spent Managing PTS Care (In Minutes): 35
[2024-03-19 08:37] LABS: Absolute Lymphocytes (CBC) 0.6 K/uL (0.7-4.9); Absolute Monocytes 0.1 K/uL (0.1-1.3); Absolute Neutrophil 3.3 K/uL (1.8-8.0); Basophils % 0.2 % (0-1.3); Hematocrit 43.1 % (36.0-45.0); Hemoglobin 13.9 g/dL (12.0-15.0); MCH 29.9 pg (27.0-35.0); MCHC 32.2 g/dL (32.0-36.0); MCV 92.9 fL (80-100); MPV 9.1 fL (7.6-11.3); Monocytes % 2.5 % (3.3-12.3); Neutrophils % 82.3 % (41.7-73.7); Platelets 145 thou/uL (152-406); RBC Red Blood Cell Count 4.64 M/uL (3.86-4.86); Red Cell Distribution Width 15.7 % (12.1-15.2)
[2024-03-19 08:51] LABS: Anion Gap 3.6 mEq/L (5.0-15.0); Potassium 3.6 mEq/L (3.5-5.1)
[2024-03-19 08:56] LABS: Magnesium 2.2 mg/dL (1.6-2.4)
[2024-03-19] MEDS: AZITHROMYCIN IV 500 MG in NA CHLORIDE 0.9% 250 ML IVPB SCH (09:00)
[2024-03-19] MEDS ORDERED: CEFTRIAXONE 1,000 MG in NA CHLORIDE 0.9% 50 ML IVPB SCH (09:00)
--- NOTE | 2024-03-20 07:14 | ECHO ---
HEIGHT: 5 ft 4 in WEIGHT: 153 lb 0 oz DATE OF STUDY: 03/19/[address]: Anali Rose [employer]IN[employer]ORSudhir 2-DIMENSIONAL: YES M.MODE: YES DOPPLER: YES COLOR FLOW: YES TDS: YES PORTABLE: YES DEFINITY: BUBBLE STUDY: DIAGNOSIS: EVALUATE CONGESTIVE HEART FAILURE CARDIAC HISTORY: CATHERIZATION: NO SURGERY: YES PROSTHETIC VALVE: NO PACEMAKER: NO MEASUREMENTS (cm) DIASTOLIC (NORMALS) SYSTOLIC (NORMALS) IVSd 1.1 (0.6-1.2) LA Diam 2.9 (1.9-4.0) LVEF 55-60% LVIDd 3.7 (3.5-5.7) LVIDs 2.6 (2.0-3.5) %FS 29% LVPWd 1.0 (0.6-1.2) Ao Diam 2.5 (2.0-3.7) 2 DIMENSIONAL ASSESSMENT: RIGHT ATRIUM: NORMAL LEFT ATRIUM: MILD DILATED RIGHT VENTRICLE: NORMAL LEFT VENTRICLE: NORMAL TRICUSPID VALVE: MILD TRICUSPID REGURGITATION MITRAL VALVE: SEVERE MITRAL ANNULAR CALCIFICATION PULMONIC VALVE: TRACE PULMONIC INSUFFICIENCY AORTIC VALVE: SEVERE AORTIC STENOSIS PERICARDIAL EFFUSION: NONE AORTIC ROOT: NORMAL LEFT VENTRICULAR WALL MOTION: NORMAL DOPPLER/COLOR FLOW: GRADE I DIASTOLIC DYSFUNCTION COMMENTS: 1. NORMAL LEFT VENTRICULAR SYSTOLIC FUNCTION, EJECTION FRACTION 55-60%, NORMAL WALL MOTION 2. GRADE I DIASTOLIC DYSFUNCTION 3. SEVERE AORTIC STENOSIS (AORTIC VALVE AREA 0.8 CENTIMETERS SQUARED, MEAN GRADIENT 40 mmHg) 4. MILD PULMONARY HYPERTENSION (RIGHT VENTRICULAR SYSTOLIC PRESSURE 35-40 mmHg) TECHNOLOGIST: SLAVA LIVINGSTON
[2024-03-20 07:59] LABS: Absolute Lymphocytes (CBC) 0.6 K/uL (0.7-4.9); Absolute Monocytes 0.2 K/uL (0.1-1.3); Absolute Neutrophil 7.6 K/uL (1.8-8.0); Basophils % 0.1 % (0-1.3); Hematocrit 44.9 % (36.0-45.0); Hemoglobin 14.5 g/dL (12.0-15.0); Lymphocytes % 7.5 % (15.3-44.8); MCH 29.8 pg (27.0-35.0); MCHC 32.2 g/dL (32.0-36.0); MCV 92.3 fL (80-100); MPV 9.2 fL (7.6-11.3); Monocytes % 2.2 % (3.3-12.3); Neutrophils % 90.2 % (41.7-73.7); Platelets 151 thou/uL (152-406); RBC Red Blood Cell Count 4.87 M/uL (3.86-4.86); Red Cell Distribution Width 15.7 % (12.1-15.2)
--- NOTE | 2024-03-20 08:06 | P.PN ---
Subjective Date of Service: 03/20/24 Chief Complaint: Pneumonia Lethargic yesterday more alert today, speech eval ordered, BNP, echo completed, to eval for heart failure PT eval, to ambulate pt today, spoke w daughter ECHO, CXR results, DC plan - Physical Exam General: Mild distress (lethargic), Confused, Other Neck: Supple, 2+ carotid pulse no bruit Respiratory: Crackles/rales, Expiratory wheezes, Rhonchi/gurgles, Other (Tachyp medardo) Cardiovascular: Normal pulses, Regular rate/rhythm Capillary refill: <2 Seconds Gastrointestinal: Normal bowel sounds, Soft and benign Musculoskeletal: No clubbing, No swelling Integumentary: No significant lesion, No tenderness/swelling Neurological: Normal speech, Normal strength at 5/5 x4 extr Lymphatics: No axilla or inguinal lymphadenopathy Review of Systems perHPI Physical Examination - Vital Signs Temperature: 97.3 F Blood Pressure: 119/52 Pulse: 51 Respirations: 18 Pulse Ox (%): 93 Assessment And Plan - Plan Assessment plan Chronic obstructive lung disease exacerbation improved Acute hypoxic respiratory failure secondary to pneumonia versus COPD exacerbation Pneumonia Hypoxia improved Hypotension improved Failed outpatient treatment of antibiotic [facility] to [facility], IV fluids, IV antibiotics, hypotension resolved with IV fluids, Zithromax and ceftriaxone, Solu-Medrol Nebs, O2 keep sats greater than 92% [facility] with fever 102.9, she reports symptoms started 2 days ago getting progressively worse. Patiently recently treated with pneumonia, is getting progressively worse, reports associated confusion. Hypotension systolic blood pressure in the 90s, oxygen in the 80s, history of COPD. Fever is associated with chills, productive cough, no reported chest pain, no reported nausea vomiting diarrhea. Treated with IV Rocephin and Zithromax, EKG 3 Rate is 70 beats/min. Rhythm is regular. QRS [place] is Normal. [place] interval is normal. QRS interval is normal. QT interval is normal. No Q waves. T waves are Normal. No ST changes noted. Clinical impression: NSR w/ Non-specific ST/T Changes, chest x-ray IMPRESSION: Patchy central predominant airspace opacities are somewhat progressive since the prior exam, may reflect central venous congestion or pneumonia. Acute hypoxic 02 2L per [place] Echo ordered, BNP ordered speech eval ordered for lethargic-, swallow eval Fluid restriction ECHO . NORMAL LEFT VENTRICULAR SYSTOLIC FUNCTION, EJECTION FRACTION 55-60%, NORMAL WALL MOTION 2. GRADE I DIASTOLIC DYSFUNCTION 3. SEVERE AORTIC STENOSIS (AORTIC VALVE AREA 0.8 CENTIMETERS SQUARED, MEAN GRADIENT 40 mmHg) 4. MILD PULMONARY HYPERTENSION (RIGHT VENTRICULAR SYSTOLIC PRESSURE 35-40 mmHg) plan for conservative treatement, History of dementia depressive disorder Resume appropriate home meds hyperlipidemia Hypertensive disorder Hypothyroidism Transient cerebral ischemia Fall precautions, resume appropriate home meds DO NOT RESUSCITATE Cardiac diet DVT SCDs Disposition return to nursing facility after discharge Discharge Plan: Home - Code Status/Comfort Care Code Status: Do Not Attempt Resuscitat Critical Care: No Time Spent Managing PTS Care (In Minutes): 35
[2024-03-20 08:11] LABS: Anion Gap 3.3 mEq/L (5.0-15.0); Magnesium 2.1 mg/dL (1.6-2.4); Potassium 3.3 mEq/L (3.5-5.1)
[2024-03-20 10:16] LABS: White Blood Cell Scan OK (OK)
[2024-03-20 10:17] LABS: Blood Morphology Comment NOT SEEN (NOT SEEN); Platelet Estimate ADEQ
[2024-03-20] MEDS ORDERED: ALBUTEROL 2.5 MG/3 ML NEB SOL NEB PRN (13:42)
[2024-03-20] MEDS ORDERED: BENZONATATE 100 MG CAP PO PRN (13:46)
[2024-03-21 03:31] LABS: Absolute Lymphocytes (CBC) 0.5 K/uL (0.7-4.9); Absolute Monocytes 0.2 K/uL (0.1-1.3); Absolute Neutrophil 7.6 K/uL (1.8-8.0); Hematocrit 47.9 % (36.0-45.0); Hemoglobin 15.5 g/dL (12.0-15.0); Lymphocytes % 6.1 % (15.3-44.8); MCH 29.7 pg (27.0-35.0); MCHC 32.4 g/dL (32.0-36.0); MCV 91.8 fL (80-100); MPV 9.2 fL (7.6-11.3); Monocytes % 2.1 % (3.3-12.3); Neutrophils % 91.8 % (41.7-73.7); Nucleated Red Blood Cells % 0.1 % (0-0); Platelets 168 thou/uL (152-406); RBC Red Blood Cell Count 5.21 M/uL (3.86-4.86); Red Cell Distribution Width 15.5 % (12.1-15.2)
[2024-03-21 03:53] LABS: Anion Gap 7.7 mEq/L (5.0-15.0); Potassium 2.7 mEq/L (3.5-5.1)
[2024-03-21] MEDS: KCL 20 MEQ/100 mL IVPB 20 MEQ/100 ML BAG IV SCH (05:21)
[2024-03-21] MEDS: NA CHLORIDE 0.9% 500 ML ONE (05:25)
--- NOTE | 2024-03-21 07:30 | P.DS ---
Admission Date: 03/18/24 Discharge Date: 03/22/24 Disposition: TRANSFER TO INTERMEDIATE Discharge Condition: FAIR Reason for Admission: Pneumonia Brief History of Present Illness: 88-year-old female with a past medical history Chronic obstructive lung disease; Dementia; depressive disorder; Hyperlipidemia; Hypertensive disorder; Hypothyroidism; Transient cerebral ischemia presents to the emergency room from the shelter with fever 102.9, she reports symptoms started 2 days ago getting progressively worse. Patiently recently treated with pneumonia, is getting progressively worse, reports associated confusion. Hypotension systolic blood pressure in the 90s, oxygen in the 80s, history of COPD. Fever is associated with chills, productive cough, no reported chest pain, no reported nausea vomiting diarrhea. Plan to admit for pneumonia, failed outpatient treatment antibiotics, hypotension. Blood pressure improved with IV fluids, IV antibiotics, DuoNebs, IV Solu-Medrol. Treated with IV Rocephin and Zithromax, EKG 3 Rate is 70 beats/min. Rhythm is regular. QRS [place] is Normal. [place] interval is normal. QRS interval is normal. QT interval is normal. No Q waves. T waves are Normal. No ST changes noted. Clinical impression: NSR w/ Non-specific ST/T Changes, chest x-ray IMPRESSION: Patchy central predominant airspace opacities are somewhat progressive since the prior exam, may reflect central venous congestion or pneumonia. - Physical Exam General: Mild distress (lethargic), Confused, Other Neck: Supple, 2+ carotid pulse no bruit Respiratory: Equal unlabored Cardiovascular: Normal pulses, Regular rate/rhythm Capillary refill: <2 Seconds Gastrointestinal: Normal bowel sounds, Soft and benign Musculoskeletal: No clubbing, No swelling Integumentary: No significant lesion, No tenderness/swelling Neurological: Normal speech, Normal strength at 5/5 x4 extr Lymphatics: No axilla or inguinal lymphadenopathy Hospital Course: 88-year-old female with a past medical history Chronic obstructive lung disease; Dementia; depressive disorder; Hyperlipidemia; Hypertensive disorder; Hypothyroidism; Transient cerebral ischemia presents to the emergency room from the shelter with fever 102.9, was noted to have pneumonia/COPD exacerbation/heart failure. Improved with IV antibiotics, diuretics, intact abscess. Evaluated by speech, recommended White thin liquids, had elevated when tolerating p.o. patient is stable to discharge to shelter, PROBLEM: Acute on chronic heart failure treated with diuretics, ,Echo completed, Acute hypoxic respiratory failure likely secondary to fluid volume overload versus pneumonia, treated with IV antibiotics, antitussives, Rad/Lab/Micro: Acute hypoxic failure, secondary to heart failure, fluid volume overload 02 2L per [place] Echo ordered, Fluid restriction ECHO . NORMAL LEFT VENTRICULAR SYSTOLIC FUNCTION, EJECTION FRACTION 55-60%, NORMAL WALL MOTION 2. GRADE I DIASTOLIC DYSFUNCTION 3. SEVERE AORTIC STENOSIS (AORTIC VALVE AREA 0.8 CENTIMETERS SQUARED, MEAN GRADIENT 40 mmHg) 4. MILD PULMONARY HYPERTENSION (RIGHT VENTRICULAR SYSTOLIC PRESSURE 35-40 mmHg) plan for conservative treatement, Continue home medicines as previously prescribed GOAL: Clear understanding of disease process INSTRUCTIONS: Physician Discharge Instructions: -Follow-up with PCP in 1 to 2 weeks -Please call Dr. Barcenas at [phone] if any questions regarding hospital stay -Please call nursing station at [phone] if any nursing or medication questions -Return to the emergency room if symptoms worsen Diet: ADA, low sodium Activity: Fall precautions Vital Signs/Physical Exam: Temp Pulse Resp BP Pulse Ox 97.2 F 50 16 183/84 H 94 03/21/24 04:00 03/21/24 04:00 03/21/24 04:00 03/21/24 04:00 03/21/24 04:00 Laboratory Data at Discharge: WBC 8.30 thou/uL (4.3-10.9) 03/21/24 02:44 Hgb 15.5 g/dL (12.0-15.0) H 03/21/24 02:44 Hct 47.9 % (36.0-45.0) H 03/21/24 02:44 Plt Count 168 thou/uL (152-406) 03/21/24 02:44 PT 14.3 SECONDS (9.5-12.5) H 03/18/24 09:40 INR 1.31 03/18/24 09:40 APTT 29.7 SECONDS (24.3-36.9) 03/18/24 09:40 Sodium 139 mEq/L (136-145) 03/21/24 02:44 Potassium 2.7 mEq/L (3.5-5.1) L D 03/21/24 02:44 BUN 32 mg/dL (7-18) H 03/21/24 02:44 Creatinine 0.88 mg/dL (0.55-1.02) 03/21/24 02:44 Glucose 152 mg/dL (74-106) H 03/21/24 02:44 Magnesium Cancelled 03/21/24 05:00 Total Bilirubin 0.6 mg/dL (0.2-1.0) 03/18/24 09:40 AST 19 U/L (15-37) 03/18/24 09:40 ALT 15 U/L (13-56) 03/18/24 09:40 Alkaline Phosphatase 73 U/L (45-117) 03/18/24 09:40 Home Medications: Acetaminophen [Pain Relief] 650 mg PO Q6H PRN 03/19/24 Albuterol Sulfate [Albuterol Sulfate Hfa] 1 puff IH Q4H PRN 03/19/24 Aspirin [Aspirin EC] 81 mg PO DAILY 03/19/24 Benzonatate [Tessalon Perle*] 100 mg PO Q8H PRN 03/19/24 Buspirone HCl [Buspar*] 1.5 tab PO TID 03/19/24 Carboxymethylcellulose Sodium [Artificial Tears] 1 gtt OPTH BID 03/19/24 Cranberry 450 mg PO BID 03/19/24 Donepezil [Aricept*] 5 mg PO BEDTIME 03/19/24 Famotidine 20 mg PO BEDTIME 03/19/24 Furosemide 40 mg PO DAILY 03/19/24 Levothyroxine Sodium 125 mg PO DAILY 03/19/24 Loratadine [Claritin*] 10 mg PO DAILY 03/19/24 Losartan Potassium 100 mg PO DAILY 03/19/24 Memantine HCl [Namenda*] 10 mg PO BID 03/19/24 Metoprolol Tartrate 25 mg PO BID 03/19/24 Ondansetron [Zofran (Odt)*] 4 mg PO Q4H PRN 03/19/24 Potassium Chloride [Klor-Con 10] 20 meq PO DAILY 03/19/24 Promethazine HCl 25 mg PO Q8H PRN 03/19/24 Simvastatin [Zocor] 10 mg PO BEDTIME 03/19/24 Trazodone HCl 50 mg PO BEDTIME 03/19/24 Albuterol Neb [Proventil 0.083% Neb Soln] 2.5 mg NEB [id number] PRN #0 amp 03/21/24 Azithromycin Tab [Zithromax*] 250 mg PO DAILY 4 Days #4 tab 03/21/24 Benzonatate [Tessalon Perle*] 100 mg PO TID PRN cap 03/21/24 New Medications: Azithromycin Tab [Zithromax*] 250 mg PO DAILY 4 Days #4 tab Physician Discharge Instructions: Patient is a long-term resident at and will return to: [place] [address] P:[phone]/F:[phone] 88-year-old female with a past medical history Chronic obstructive lung disease; Dementia; depressive disorder; Hyperlipidemia; Hypertensive disorder; Hypothyroidism; Transient cerebral ischemia presents to the emergency room from the shelter with fever 102.9, was noted to have pneumonia/COPD exacerbation/heart failure. Improved with IV antibiotics, diuretics, intact abscess. Evaluated by speech, recommended White thin liquids, had elevated when tolerating p.o. patient is stable to discharge to shelter, PROBLEM: Acute on chronic heart failure treated with diuretics Pneumonia treated with IV antibiotics inpatient, plan to discharge on azithromycin Rad/Lab/Micro: Echo ordered Fluid restriction ECHO . NORMAL LEFT VENTRICULAR SYSTOLIC FUNCTION, EJECTION FRACTION 55-60%, NORMAL WALL MOTION 2. GRADE I DIASTOLIC DYSFUNCTION 3. SEVERE AORTIC STENOSIS (AORTIC VALVE AREA 0.8 CENTIMETERS SQUARED, MEAN GRADIENT 40 mmHg) 4. MILD PULMONARY HYPERTENSION (RIGHT VENTRICULAR SYSTOLIC PRESSURE 35-40 mmHg) plan for conservative treatement, Continue home medicines as previously prescribed GOAL: Clear understanding of disease process INSTRUCTIONS: Physician Discharge Instructions: -Follow-up with PCP in 1 to 2 weeks -Please call Dr. Barcenas at [phone] if any questions regarding hospital stay -Please call nursing station at [phone] if any nursing or medication questions -Return to the emergency room if symptoms worsen Diet: AHA Followup: Whit Bundy MD [Primary Care Provider] - Time spent managing pt's care (in minutes): 55
[2024-03-21 10:03] VITALS: O2SAT 97
[2024-03-21 12:02] VITALS: BP 143/75; TEMP 97.4
--- NOTE | 2024-03-22 12:43 | P.DS ---
Admission Date: 03/18/24 Discharge Date: 03/21/24 Disposition: TRANSFER TO SENIOR LIVING Discharge Condition: FAIR Reason for Admission: Pneumonia Brief History of Present Illness: 88-year-old female with a past medical history Chronic obstructive lung disease; Dementia; depressive disorder; Hyperlipidemia; Hypertensive disorder; Hypothyroidism; Transient cerebral ischemia presents to the emergency room from the assisted with fever 102.9, she reports symptoms started 2 days ago getting progressively worse. Patiently recently treated with pneumonia, is getting progressively worse, reports associated confusion. Hypotension systolic blood pressure in the 90s, oxygen in the 80s, history of COPD. Fever is associated with chills, productive cough, no reported chest pain, no reported nausea vomiting diarrhea. Plan to admit for pneumonia, failed outpatient treatment antibiotics, hypotension. Blood pressure improved with IV fluids, IV antibiotics, DuoNebs, IV Solu-Medrol. Treated with IV Rocephin and Zithromax, EKG 3 Rate is 70 beats/min. Rhythm is regular. QRS [place] is Normal. [place] interval is normal. QRS interval is normal. QT interval is normal. No Q waves. T waves are Normal. No ST changes noted. Clinical impression: NSR w/ Non-specific ST/T Changes, chest x-ray IMPRESSION: Patchy central predominant airspace opacities are somewhat progressive since the prior exam, may reflect central venous congestion or pneumonia. - Physical Exam General: Mild distress (lethargic), Confused, Other Neck: Supple, 2+ carotid pulse no bruit Respiratory: Equal unlabored Cardiovascular: Normal pulses, Regular rate/rhythm Capillary refill: <2 Seconds Gastrointestinal: Normal bowel sounds, Soft and benign Musculoskeletal: No clubbing, No swelling Integumentary: No significant lesion, No tenderness/swelling Neurological: Normal speech, Normal strength at 5/5 x4 extr Lymphatics: No axilla or inguinal lymphadenopathy Hospital Course: 88-year-old female with a past medical history Chronic obstructive lung disease; Dementia; depressive disorder; Hyperlipidemia; Hypertensive disorder; Hypothyroidism; Transient cerebral ischemia presents to the emergency room from the assisted with fever 102.9, was noted to have pneumonia/COPD exacerbation/heart failure. Improved with IV antibiotics, diuretics, intact abscess. Evaluated by speech, recommended White thin liquids, had elevated when tolerating p.o. patient is stable to discharge to assisted, PROBLEM: Acute on chronic heart failure treated with diuretics, ,Echo completed, Acute hypoxic respiratory failure likely secondary to fluid volume overload versus pneumonia, treated with IV antibiotics, antitussives, Rad/Lab/Micro: Acute hypoxic failure, secondary to heart failure, fluid volume overload 02 2L per [place] Echo ordered, Fluid restriction ECHO . NORMAL LEFT VENTRICULAR SYSTOLIC FUNCTION, EJECTION FRACTION 55-60%, NORMAL WALL MOTION 2. GRADE I DIASTOLIC DYSFUNCTION 3. SEVERE AORTIC STENOSIS (AORTIC VALVE AREA 0.8 CENTIMETERS SQUARED, MEAN GRADIENT 40 mmHg) 4. MILD PULMONARY HYPERTENSION (RIGHT VENTRICULAR SYSTOLIC PRESSURE 35-40 mmHg) plan for conservative treatement, Continue home medicines as previously prescribed GOAL: Clear understanding of disease process INSTRUCTIONS: Physician Discharge Instructions: -Follow-up with PCP in 1 to 2 weeks -Please call Dr. Barcenas at [phone] if any questions regarding hospital stay -Please call nursing station at [phone] if any nursing or medication questions -Return to the emergency room if symptoms worsen Diet: ADA, low sodium Activity: Fall precautions Vital Signs/Physical Exam: Temp Pulse Resp BP Pulse Ox 97.4 F 52 17 143/75 H 95 03/21/24 12:00 03/21/24 12:00 03/21/24 12:00 03/21/24 12:00 03/21/24 12:00 Laboratory Data at Discharge: WBC 8.30 thou/uL (4.3-10.9) 03/21/24 02:44 Hgb 15.5 g/dL (12.0-15.0) H 03/21/24 02:44 Hct 47.9 % (36.0-45.0) H 03/21/24 02:44 Plt Count 168 thou/uL (152-406) 03/21/24 02:44 PT 14.3 SECONDS (9.5-12.5) H 03/18/24 09:40 INR 1.31 03/18/24 09:40 APTT 29.7 SECONDS (24.3-36.9) 03/18/24 09:40 Sodium 139 mEq/L (136-145) 03/21/24 02:44 Potassium 2.7 mEq/L (3.5-5.1) L D 03/21/24 02:44 BUN 32 mg/dL (7-18) H 03/21/24 02:44 Creatinine 0.88 mg/dL (0.55-1.02) 03/21/24 02:44 Glucose 152 mg/dL (74-106) H 03/21/24 02:44 Magnesium Cancelled 03/21/24 05:00 Total Bilirubin 0.6 mg/dL (0.2-1.0) 03/18/24 09:40 AST 19 U/L (15-37) 03/18/24 09:40 ALT 15 U/L (13-56) 03/18/24 09:40 Alkaline Phosphatase 73 U/L (45-117) 03/18/24 09:40 Home Medications: Acetaminophen [Pain Relief] 650 mg PO Q6H PRN 03/19/24 Albuterol Sulfate [Albuterol Sulfate Hfa] 1 puff IH Q4H PRN 03/19/24 Aspirin [Aspirin EC] 81 mg PO DAILY 03/19/24 Benzonatate [Tessalon Perle*] 100 mg PO Q8H PRN 03/19/24 Buspirone HCl [Buspar*] 1.5 tab PO TID 03/19/24 Carboxymethylcellulose Sodium [Artificial Tears] 1 gtt OPTH BID 03/19/24 Cranberry 450 mg PO BID 03/19/24 Donepezil [Aricept*] 5 mg PO BEDTIME 03/19/24 Famotidine 20 mg PO BEDTIME 03/19/24 Furosemide 40 mg PO DAILY 03/19/24 Levothyroxine Sodium 125 mg PO DAILY 03/19/24 Loratadine [Claritin*] 10 mg PO DAILY 03/19/24 Losartan Potassium 100 mg PO DAILY 03/19/24 Memantine HCl [Namenda*] 10 mg PO BID 03/19/24 Metoprolol Tartrate 25 mg PO BID 03/19/24 Ondansetron [Zofran (Odt)*] 4 mg PO Q4H PRN 03/19/24 Potassium Chloride [Klor-Con 10] 20 meq PO DAILY 03/19/24 Promethazine HCl 25 mg PO Q8H PRN 03/19/24 Simvastatin [Zocor] 10 mg PO BEDTIME 03/19/24 Trazodone HCl 50 mg PO BEDTIME 03/19/24 Albuterol Neb [Proventil 0.083% Neb Soln] 2.5 mg NEB [id number] PRN #0 amp 03/21/24 Azithromycin Tab [Zithromax*] 250 mg PO DAILY 4 Days #4 tab 03/21/24 Benzonatate [Tessalon Perle*] 100 mg PO TID PRN cap 03/21/24 New Medications: Azithromycin Tab [Zithromax*] 250 mg PO DAILY 4 Days #4 tab Physician Discharge Instructions: Patient is a long-term resident at and will return to: [place] [address] P:[phone]/F:[phone] 88-year-old female with a past medical history Chronic obstructive lung disease; Dementia; depressive disorder; Hyperlipidemia; Hypertensive disorder; Hypothyroidism; Transient cerebral ischemia presents to the emergency room from the assisted with fever 102.9, was noted to have pneumonia/COPD exacerbation/heart failure. Improved with IV antibiotics, diuretics, intact abscess. Evaluated by speech, recommended White thin liquids, had elevated when tolerating p.o. patient is stable to discharge to assisted, PROBLEM: Acute on chronic heart failure treated with diuretics Pneumonia treated with IV antibiotics inpatient, plan to discharge on azithromycin Rad/Lab/Micro: Echo ordered Fluid restriction ECHO . NORMAL LEFT VENTRICULAR SYSTOLIC FUNCTION, EJECTION FRACTION 55-60%, NORMAL WALL MOTION 2. GRADE I DIASTOLIC DYSFUNCTION 3. SEVERE AORTIC STENOSIS (AORTIC VALVE AREA 0.8 CENTIMETERS SQUARED, MEAN GRADIENT 40 mmHg) 4. MILD PULMONARY HYPERTENSION (RIGHT VENTRICULAR SYSTOLIC PRESSURE 35-40 mmHg) plan for conservative treatement, Continue home medicines as previously prescribed GOAL: Clear understanding of disease process INSTRUCTIONS: Physician Discharge Instructions: -Follow-up with PCP in 1 to 2 weeks -Please call Dr. Barcenas at [phone] if any questions regarding hospital stay -Please call nursing station at [phone] if any nursing or medication questions -Return to the emergency room if symptoms worsen Diet: AHA Followup: Whit Bundy MD [Primary Care Provider] - Time spent managing pt's care (in minutes): 55
== END 2024-03-21 15:08 | DRG 193 ==
LOC: ER 09:04 → ERHOLD 12:35 → 2ND 16:34
PROVIDERS: ADMIT Hospitalist; ATTEND Hospitalist
DX: J18.9 Pneumonia, unspecified organism (principal); G93.41 Metabolic encephalopathy; J96.01 Acute respiratory failure with hypoxia; G93.1 Anoxic brain damage, not elsewhere classified; J44.0 Chronic obstructive pulmonary disease with (acute) lower respiratory infection; J44.1 Chronic obstructive pulmonary disease with (acute) exacerbation; F03.93 Unspecified dementia, unspecified severity, with mood disturbance; E78.5 Hyperlipidemia, unspecified; I11.0 Hypertensive heart disease with heart failure; I50.9 Heart failure, unspecified; I35.0 Nonrheumatic aortic (valve) stenosis; I27.20 Pulmonary hypertension, unspecified; E03.9 Hypothyroidism, unspecified; Z66 Do not resuscitate; Z88.1 Allergy status to other antibiotic agents; Z88.7 Allergy status to serum and vaccine; Z11.52 Encounter for screening for COVID-19; Z86.73 Personal history of transient ischemic attack (TIA), and cerebral infarction without residual deficits; Z79.82 Long term (current) use of aspirin; Z79.52 Long term (current) use of systemic steroids; Z79.899 Other long term (current) drug therapy; Z79.890 Hormone replacement therapy; Z96.653 Presence of artificial knee joint, bilateral
CPT/HCPCS: 36415; 71045; 80048; 80053; 83605; 83735; 83880; 85025; 85610; 85730; 87040; 87804; 87811; 92526; 92610; 93005; 93306; 96361; 96365; 96367; 96375; 97161; 97530; 99285; J0696; J1940; J2543; J2919; J3480; J7030; J7040; J7050; J7614